=== PATIENT | female | born 1940 | race Caucasian/White ===

== ENCOUNTER 2020-08-08 15:24 | Inpatient (IN) ==
[2020-08-08] MEDS ORDERED: ONDANSETRON INJ 2 MG/ML 2 ML VIAL IV PRN (17:02)
[2020-08-08] MEDS ORDERED: ACETAMINOPHEN 325 MG TAB PO PRN (17:02)
--- NOTE | 2020-08-08 19:25 | XRay Report ---
XR chest 1V portable CLINICAL HISTORY: preop COMPARISON STUDY: Chest radiograph and chest CT March 2020. FINDINGS: There is no pneumothorax or pleural effusion. Note is made of moderate cardiomegaly without evidence for pulmonary edema. There is no consolidation to suggest pneumonia. Severe osteoarthritis of the left glenohumeral joint is incidentally noted. IMPRESSION: No acute cardiopulmonary findings. ACT 112: Negative or not required by law. Electronically signed by: Haris Peña M.D. 08/08/2020 7:23 PM
--- NOTE | 2020-08-08 20:34 | CT Scan Report ---
MAXILLOFACIAL CT WITHOUT CONTRAST CLINICAL HISTORY: Eval for dislocation COMPARISON STUDY: Mandible radiograph July 08, 2020. TECHNIQUE: A maxillofacial CT was performed without IV contrast. Coronal and sagittal reformats were viewed. Automated exposure control was utilized for the study. A dose lowering technique was utiliz ed adhering to the principles of ALARA. FINDINGS: Note is made of anterior dislocation of the right mandibular condyle with respect to the gl enoid fossa. Alignment of the left temporomandibular joint is anatomic. There is no mandibular fractu re. No acute facial fracture is identified. There is no skull base fracture. Orbits are unremarkable on this unenhanced examination. Note is made of mild ethmoid and sphenoid sinus mucosal thickening. N o suspicious osseous lesions are noted. There is no bony destruction. IMPRESSION: Anterior dislocation of the right temporomandibular joint. No fracture. ACT 112: Negative or not required by law. Electronically signed by: Haris Peña M.D. 08/08/2020 8:33 PM
[2020-08-08 20:42] LABS: Basophils # (auto) 0.01 K/uL (0-0.2); Basophils % (auto) 0.2 %; Eosinophils # (auto) 0.04 K/uL (0-0.5); Eosinophils % (auto) 0.6 %; Hematocrit (blood only) 35.1 % (37-47); Hemoglobin 11.4 g/dL (12.0-16.0); Immature Granulocytes # (auto) 0.01 K/uL (0.00-0.02); Immature Granulocytes % (auto) 0.2 %; Lymphocytes # (auto) 0.92 K/uL (1.2-3.4); Lymphocytes % (auto) 14.6 %; Mean Corpuscular Hemoglobin 30.2 pg (25-34); Mean Corpuscular Volume 93.1 fL (80-100); Mean Platelet Volume 10.5 fL (7.4-10.4); Monocytes # (auto) 0.86 K/uL (0.11-0.59); Monocytes % (auto) 13.7 %; Neutrophils # (auto) 4.45 K/uL (1.4-6.5); Neutrophils % (auto) 70.7 %; Platelet Count 267 K/uL (130-400); RDW Coefficient of Variation 13.2 % (11.5-14.5); RDW Standard Deviation 45.4 fL (36.4-46.3); Red Blood Count 3.77 M/uL (4.2-5.4); White Blood Count 6.29 K/uL (4.8-10.8)
[2020-08-08 20:46] LABS: Mean Corpuscular Hgb Conc 32.5 g/dL (32-36)
[2020-08-08 20:59] LABS: Albumin Level 3.8 gm/dl (3.4-5.0); Calcium 10.1 mg/dl (8.5-10.1); Creatinine Clr Calc Pharmacy 21.9 ml/min; Est GFR (African American) 42.3; Est GFR (Non-African American) 36.5; Potassium 3.7 mmol/L (3.5-5.1)
[2020-08-08 21:02] LABS: Bilirubin,Total 0.4 mg/dl (0.2-1); Globulin 3.7 gm/dl (2.5-4.0); Total Protein 7.5 gm/dl (6.4-8.2)
--- NOTE | 2020-08-09 01:23 | History & Physical Report ---
Date of Service August 09, 2020 Assessment & Plan (1) Dislocated mandible: Dislocated Mandible Face CT showing anterior dislocation of right TMJ this has been dislocated for weeks Plan is for facial surgery to reduce the right TMJ under anesthesia in OR NPO Will start LR at 60 mls/hour Will order covid testing DVT PPx: SCD's F/E/N: LR @ 60 mls/hour Dispo: Awaiting reduction in OR for dislocated Right TMJ DNR/DNI Admission and Anticipated Discharge Date Admission Date: August 08, 2020 History of Present Illness Chief Complaint: Jaw Dislocation Primary Care Provider: Paris Vo MD Karolina Scott is a maximo 80 year old woman with a past medical history of hypertension who was brushing her teeth approximately 4 weeks ago when she felt her jaw move out of place and pain in her right cheondoism area. She went to her doctor and was referred to Dr. Gaffney of ENT who who was unable to reduce her jaw in clinic he referred to Dr. Barber oral surgeon who was also unable to relocated jaw. Decision was made to transfer her here for reduction under anesthesia. She is currently in mild discomfort, but denies need for pain medication, she is otherwise well. She has only been able to eat soup since her incident over a month ago because she cannot chew. her speech has been impaired and she has been in discomfort this whole time. Non smoker non drinker no drug use. Does not take any home medications. Lives in an apartment independently in [place], son lives in the area. DNR/DNI Allergies Allergy/AdvReac Type Severity Reaction Status Date / Time Penicillins Allergy Intermediate Swelling Verified 08/08/20 13:31 of Lip/Tongue/Throat Home Medications Home Medications Medication Instructions Recorded Confirmed Type acetaminophen 500 mg tablet 500 mg PO Q6H PRN 02/13/20 08/08/20 History calcium carbonate-vitamin D3 600 1 tab PO BID tab 02/13/20 08/08/20 History mg(1,500 mg)-400 unit chewable tablet loratadine 10 mg tablet 10 mg PO QAM PRN 02/13/20 08/08/20 History multivitamin,or-swml-siwyqwrv 1 tab PO QAM 02/13/20 08/08/20 History omega-3 fatty acids 1,000 mg 1,000 mg PO QAM 02/13/20 08/08/20 History capsule ciprofloxacin HCl 250 mg tablet 250 mg PO BID #20 tab 07/02/20 08/08/20 Rx metronidazole 500 mg tablet 500 mg PO BID #20 tab 07/02/20 08/08/20 Rx Past Med/Surg History Medical History (Updated 08/09/20 @ 11:45 by Carroll Gonzalez MD) Anemia Glaucoma Hiatal hernia History of cataract History of chemotherapy Human papilloma virus (HPV) DNA test negative Hyperlipidemia Hypertension LBBB (left bundle branch block) UTI (urinary tract infection) Vertigo 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 Surgical History H/O colonoscopy (~2018) History of arthroscopy of right knee 15 years ago History of bladder repair surgery History of hernia repair History of hysterectomy S/P iridectomy Family History Mother , age 60's Stroke Father , of old age, age 80 Stroke Son No problems noted. Son , of MVA age 15 No problems noted. Family/Other Hypertension Social History (Updated 08/05/20 @ 14:46 by Christina Haq RN) Smoking Status: Never smoker Hx Alcohol Use: No Hx Substance Use: No Preferred Language: Kuwaiti Communication Ability: Effective Visual Impairment: Limited Hearing Ability: Normal Mail Rider Required: No Beliefs That Will Affect Care: Taoism marital status: / Current Living Situation: Alone current occupational status: retired How many Children do You have: 2 Other Information That Helps Us Care for You: No Feels Safe at Home: Yes Safety Concerns: Feels Safe At This Time Childhood Exposure to Second-Hand Smoke: No caffeine: Yes (2 cups a day) Assistive Devices: Walker Review of Systems Review of Systems: All systems reviewed & are unremarkable except as noted in HPI & below Physical Exam Constitutional: WD/WN, vitals as above Eyes: PERRL, conjunctivae normal, anicteric sclerae ENMT: Patient with clear shift in jaw to the right and anteriorly having difficulty opening mouth to speak to me. Tenderness around TMJ Neck: trachea midline, no thyromegaly Respiratory: normal respiratory effort, lungs clear to auscultation Cardiovascular: RRR, no murmur, no edema Vessels: normal peripheral pulses and dorsalis pedis pulses present; no carotid bruit and no abdominal aortic bruit Extremities: no pedal edema and no edema Gastrointestinal (Abdomen): normal bowel sounds, soft, nontender, no hepatosplenomegaly Musculoskeletal: no cyanosis or clubbing, extremities motor strength 5/5 Results & Data Results & Data ([facility]) Vital Signs (Past 12 Hours) Vital Signs Temp Pulse Resp BP Pulse Ox 08/08/20 23:34 36.7 C 89 16 149/84 H 98 08/08/20 19:13 36.7 C 84 16 161/92 H 98 Code Status & VTE Plan VTE Prophylaxis Plan VTE Prophylaxis will be ordered: Yes Supervising Physician Co-Signing Physician Notes Attending addendum: I have physically seen this patient, have supervised the medical residents activities, and agree with the H&P unless as otherwise noted. Assessment and Plan: Dislocated mandible/right TMJ- Ongoing direct admission for surgery under anesthesia in the OR with Dr. Barber. N.p.o. Famotidine 20 mg IV every 12 hours LR at 60 mils per hour Admission laboratories: CBC with differential, chemistry profile, PT/PTT/INR, EKG and chest x-ray. Ceftriaxone 1 g IV daily to cover concurrent mild sinusitis Remaining orders and notations as noted Resident Activity Tracking Resident Involvement: Resident Care Provided Care Provided: Adult Hospital Medicine
[2020-08-09] MEDS: LACTATED RINGER'S 1,000 ML IV SCH ×2 (03:52→18:24)
--- NOTE | 2020-08-09 08:31 | Hospitalist Progress Note ---
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 * s/p chemo and radiation -- completed * Follows with Dr. Yepez (3) Hypertension: * Previously on Losartan but discontinued due to syncopal episodes * Talks of Holter monitor outpatient * BP 162/77 * Continue to monitor (4) LBBB (left bundle branch block): Old, on ECG from previous. has a h/o cardiac workup as outpt prior to moving here including ECHO. Records requested (5) DVT prophylaxis: * SCDs Dispo: OR later today Admission and Anticipated Discharge Date Admission Date: August 08, 2020 Supervising Physician Co-Signing Physician Notes PA Supervision Note: I did not personally see or examine the patient today, but I verified all oden points of FLORENCIA Crystal's assessment and plan with the following exceptions/additions: None Subjective Patient evaluated this morning. Awaiting OR time. States she had been brushing teeth approximately a month ago due to brushing her teeth after eating peanuts and she felt a pop. Had been seen by her PCP and was given cipro/flagyl for a dental infection initially but had been set up with wrong doc at f/u and ended up needing evaluated by Dr. Barber shortly after waiting 3-4 weeks for ENT appt. She states she is not having much pain currently and does not require anything for that at this time. She states initially eating soups, but hasn't really been able to take much in as her teeth as not aligned. She states she is nervous about OR later this morning but feels that she is in good hands. Denies fever, chills, chest pain, shortness of breath, abdominal pain or dysuria at this time. Awaiting time for OR hopefully later this morning. Review of Systems Review of Systems: All systems reviewed & are unremarkable except as noted in HPI & below Physical Exam Constitutional: + frail appearing, cooperative and comfortable; no acute distress Eyes: PERRL, conjunctivae normal, anicteric sclerae ENMT: Jaw shifted right and anteriorly. difficulty with opening mouth. TMJ on R side tender to palpation poor dentition Neck: trachea midline, no thyromegaly Respiratory: normal respiratory effort, lungs clear to auscultation Cardiovascular: RRR, no murmur, no edema Vessels: normal peripheral pulses and dorsalis pedis pulses present; no carotid bruit and no abdominal aortic bruit Extremities: no pedal edema and no edema Gastrointestinal (Abdomen): normal bowel sounds, soft, nontender, no hepatosplenomegaly Musculoskeletal: no cyanosis or clubbing, extremities motor strength 5/5 Skin: warm, dry Neurologic: normal touch/pain/proprioception and CN's II-XI intact bilaterally Psychiatric: Orientation: alert and oriented x 3 Lymphatic: no cervical or axillary lymphadenopathy Results & Data Results & Data ([facility]) Vital Signs (Past 12 Hours) Vital Signs Temp Pulse Resp BP Pulse Ox 08/09/20 06:40 36.7 C 71 16 162/77 H 96 08/08/20 23:34 36.7 C 89 16 149/84 H 98 Laboratory Results 08/09/20 08/09/20 08/09/20 Range/Units Unknown Unknown 08:17 WBC (4.8-10.8) K/uL RBC (4.2-5.4) M/uL Hgb (12.0-16.0) g/dL Hct (37-47) % MCV (80-100) fL MCH (25-34) pg MCHC (32-36) g/dL RDW Std Deviation (36.4-46.3) fL RDW Coeff of Joe (11.5-14.5) % Plt Count (130-400) K/uL MPV (7.4-10.4) fL Immature Gran % (Auto) % Neut % (Auto) % Lymph % (Auto) % [place] % (Auto) % Eos % (Auto) % Baso % (Auto) % Neut # (Auto) (1.4-6.5) K/uL Lymph # (Auto) (1.2-3.4) K/uL [place] # (Auto) (0.11-0.59) K/uL Eos # (Auto) (0-0.5) K/uL Baso # (Auto) (0-0.2) K/uL Immature Gran # (Auto) (0.00-0.02) K/uL Sodium (136-145) mmol/L Potassium (3.5-5.1) mmol/L Chloride (98-107) mmol/L Carbon Dioxide (21-32) mmol/L Anion Gap (3-11) BUN (7-18) mg/dl Creatinine (0.6-1.2) mg/dl Est Cr Clr Drug Dosing ml/min Est GFR ( Amer) Est GFR (Non-Af Amer) BUN/Creatinine Ratio (10-20) Glucose (70-99) mg/dl Calcium (8.5-10.1) mg/dl Magnesium 1.8 (1.8-2.4) mg/dl Total Bilirubin (0.2-1) mg/dl AST (15-37) U/L ALT (12-78) U/L Alkaline Phosphatase (45-117) U/L Total Protein (6.4-8.2) gm/dl Albumin (3.4-5.0) gm/dl Globulin (2.5-4.0) gm/dl Albumin/Globulin Ratio (0.9-2) COVID-19 Eval [facility] SARS-CoV-2, RNA, NAAT NEGATIVE (NEGATIVE) 08/08/20 08/08/20 Range/Units 20:25 20:25 WBC 6.29 (4.8-10.8) K/uL RBC 3.77 L (4.2-5.4) M/uL Hgb 11.4 L (12.0-16.0) g/dL Hct 35.1 L (37-47) % MCV 93.1 (80-100) fL MCH 30.2 (25-34) pg MCHC 32.5 (32-36) g/dL RDW Std Deviation 45.4 (36.4-46.3) fL RDW Coeff of Joe 13.2 (11.5-14.5) % Plt Count 267 (130-400) K/uL MPV 10.5 H (7.4-10.4) fL Immature Gran % (Auto) 0.2 % Neut % (Auto) 70.7 % Lymph % (Auto) 14.6 % [place] % (Auto) 13.7 % Eos % (Auto) 0.6 % Baso % (Auto) 0.2 % Neut # (Auto) 4.45 (1.4-6.5) K/uL Lymph # (Auto) 0.92 L (1.2-3.4) K/uL [place] # (Auto) 0.86 H (0.11-0.59) K/uL Eos # (Auto) 0.04 (0-0.5) K/uL Baso # (Auto) 0.01 (0-0.2) K/uL Immature Gran # (Auto) 0.01 (0.00-0.02) K/uL Sodium 136 (136-145) mmol/L Potassium 3.7 (3.5-5.1) mmol/L Chloride 102 (98-107) mmol/L Carbon Dioxide 29 (21-32) mmol/L Anion Gap 5.0 (3-11) BUN 18 (7-18) mg/dl Creatinine 1.35 H (0.6-1.2) mg/dl Est Cr Clr Drug Dosing 21.9 ml/min Est GFR ( Amer) 42.3 Est GFR (Non-Af Amer) 36.5 BUN/Creatinine Ratio 13.0 (10-20) Glucose 99 (70-99) mg/dl Calcium 10.1 (8.5-10.1) mg/dl Magnesium (1.8-2.4) mg/dl Total Bilirubin 0.4 (0.2-1) mg/dl AST 14 L (15-37) U/L ALT 12 (12-78) U/L Alkaline Phosphatase 111 (45-117) U/L Total Protein 7.5 (6.4-8.2) gm/dl Albumin 3.8 (3.4-5.0) gm/dl Globulin 3.7 (2.5-4.0) gm/dl Albumin/Globulin Ratio 1.0 (0.9-2) COVID-19 Eval Order SARS-CoV-2, RNA, NAAT (NEGATIVE) Diagnostic Findings Maxillofacial CT w/o Contrast IMPRESSION: Anterior dislocation of the right temporomandibular joint. No fracture. CXR IMPRESSION: No acute cardiopulmonary findings. PG Care Time/CCT Total # of Minutes Spent Total Time Spent with Patient: Total time spent is greater than 50% in coordination of care (as documented) at patient's floor/unit and/or counseling patient: Coding Level of Care Code 87245 Subseq Hosp Care Lvl 2 Diagnoses Dislocated mandible S03.00XA Vulvar carcinoma C51.9 Hypertension I10 LBBB (left bundle branch block) I44.7 DVT prophylaxis Z29.9
[2020-08-09] MEDS ORDERED: MIDAZOLAM HCL 1 MG/ML 2ML VIAL ONE (10:23)
[2020-08-09] MEDS ORDERED: LIDOCAINE HCL 2% 2 ML VIAL/AMP(20MG/ML) INFIL ONE (10:24)
[2020-08-09] MEDS ORDERED: fentaNYL citrate 100 MCG/2 ML VIAL ONE (10:24)
[2020-08-09] MEDS ORDERED: DEXAMETHASONE SOD INJ 4 MG/ML VIAL ONE ×2 (10:25→13:10)
[2020-08-09] MEDS ORDERED: ROCURONIUM BROMIDE 10 MG/ML 5 ML VIAL IV ONE (10:25)
[2020-08-09] MEDS ORDERED: ONDANSETRON INJ 2 MG/ML 2 ML VIAL ONE (10:25)
[2020-08-09] MEDS ORDERED: OXYMETAZOLINE 0.05% 30 ML BTL ONE (10:30)
[2020-08-09] MEDS ORDERED: LIDOCAINE 2% JELLY 5 ML TUBE ONE (10:32)
[2020-08-09] MEDS ORDERED: CHLORHEXIDINE GLUCONATE 0.12% 480 ML ONE (10:44)
[2020-08-09] MEDS ORDERED: BUPIVACAINE/EPINEPHRINE 0.5% 1:200,000 1.8 ML CARP ONE ×2 (10:44→12:32)
[2020-08-09] MEDS ORDERED: SUCCINYLCHOLINE CHLORIDE 20 MG/ML 10 ML VIAL IV ONE (10:54)
[2020-08-09] MEDS ORDERED: fentaNYL citrate 100 MCG/2 ML VIAL IV PRN (11:43)
[2020-08-09] MEDS ORDERED: ePHEDrine sulfate 50 MG/ML AMP IV PRN (11:43)
[2020-08-09] MEDS ORDERED: ONDANSETRON INJ 2 MG/ML 2 ML VIAL IV PRN (11:43)
[2020-08-09] MEDS ORDERED: MEPERIDINE HCL 25 MG/ML CARP/VIAL IV PRN (11:43)
[2020-08-09] MEDS ORDERED: PHENYLEPHRINE 100MCG/ML 5ML SYR IV PRN (11:43)
[2020-08-09] MEDS ORDERED: ATROPINE SULFATE 0.1 MG/ML 10ML SYR IV PRN (11:43)
[2020-08-09] MEDS ORDERED: HYDROmorphone INJ 1 MG/ML SYRINGE IV PRN (11:43)
[2020-08-09] MEDS ORDERED: LABETALOL HCL IV 5 MG/ML 20ML IV PRN (11:43)
--- NOTE | 2020-08-09 11:44 | Anesthesiology Consultation ---
Date of Service August 09, 2020 Covid 19 negative today. Assessment & Plan (1) Encounter for pre-operative examination: Chart Review Chart Review: Acceptable Risk for Surgery and Patient NOT seen in Pre Admission Testing Consults Requested none History Surgery Operation Date: 08/09/20 09:50 Proposed Procedures p Jaw Reduction - Richie Barber, DMD Height/Weight Height: 4 ft 11 in Weight: 51 kg Allergies Allergy/AdvReac Type Severity Reaction Status Date / Time Penicillins Allergy Intermediate Swelling Verified 08/08/20 13:31 of Lip/Tongue/Throat Medications Home Medications Medication Instructions Recorded Confirmed Last Taken acetaminophen 500 mg tablet 500 mg PO Q6H PRN 02/13/20 08/08/20 Unknown calcium carbonate-vitamin D3 600 1 tab PO BID tab 02/13/20 08/08/20 Unknown mg(1,500 mg)-400 unit chewable tablet loratadine 10 mg tablet 10 mg PO QAM PRN 02/13/20 08/08/20 Unknown multivitamin,jd-lyzk-tooicout 1 tab PO QAM 02/13/20 08/08/20 03/07/20 omega-3 fatty acids 1,000 mg 1,000 mg PO QAM 02/13/20 08/08/20 03/07/20 capsule ciprofloxacin HCl 250 mg tablet 250 mg PO BID #20 tab 07/02/20 08/08/20 Unknown metronidazole 500 mg tablet 500 mg PO BID #20 tab 07/02/20 08/08/20 Unknown Active Medications Generic Name Dose Route Start Last Admin Trade Name Freq PRN Reason Stop Dose Admin Lactated Ringer's 1,000 mls @ 60 mls/hr 08/09/20 02:15 08/09/20 03:52 Lr IV 09/08/20 02:14 60 mls/hr .[id number] ETHAN Administration NPO Date Last Intake of Fluids: 08/08/20 Time Last Intake of Fluids: 18:00 Date Last Intake of Solids: 08/08/20 Time Last Intake of Solids: 18:00 Last Intake of Solids Comment: liquid diet Past Medical History Medical History (Updated 08/09/20 @ 11:45 by Carroll Gonzalez MD) Anemia Glaucoma Hiatal hernia History of cataract History of chemotherapy Human papilloma virus (HPV) DNA test negative Hyperlipidemia Hypertension LBBB (left bundle branch block) UTI (urinary tract infection) Vertigo Vulvar carcinoma 01/19/2082-kfgi-ytcd 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 Past Family History Family History Mother , age 60's Stroke Father , of old age, age 80 Stroke Son No problems noted. Son , of MVA age 15 No problems noted. Family/Other Hypertension Past Surgical History Surgical History H/O colonoscopy (~2018) History of arthroscopy of right knee 15 years ago History of bladder repair surgery History of hernia repair History of hysterectomy S/P iridectomy Social History Smoking Status: Never smoker Hx Alcohol Use: No Hx Substance Use: No Physical Exam Vital Signs Last Vital Signs Temp 36.5 C 08/09/20 11:23 Pulse 88 08/09/20 11:23 Resp 18 08/09/20 11:23 BP 170/97 H 08/09/20 11:23 Pulse Ox 97 08/09/20 11:23 Testing Laboratory Results 08/08/20 20:25 08/08/20 20:25 Electrocardiogram Date: 03/08/20 Findings: + NSR @ (83) and + LBBB possible L atrial enlargement Chest X-Ray Date: 08/08/20 XR chest 1V portable CLINICAL HISTORY: preop COMPARISON STUDY: Chest radiograph and chest CT March 2020. FINDINGS: There is no pneumothorax or pleural effusion. Note is made of moderate cardiomegaly without evidence for pulmonary edema. There is no consolidation to suggest pneumonia. Severe osteoarthritis of the left glenohumeral joint is incidentally noted. IMPRESSION: No acute cardiopulmonary findings. ACT 112: Negative or not required by law. Electronically signed by: Haris Peña M.D. 08/08/2020 7:23 PM Dictated: 08/08/201918 Transcribed: 08/08/201918 Other Testing MAXILLOFACIAL CT WITHOUT CONTRAST CLINICAL HISTORY: Eval for dislocation COMPARISON STUDY: Mandible radiograph July 08, 2020. TECHNIQUE: A maxillofacial CT was performed without IV contrast. Coronal and sagittal reformats were viewed. Automated exposure control was utilized for the study. A dose lowering technique was utilized adhering to the principles of ALARA. FINDINGS: Note is made of anterior dislocation of the right mandibular condyle with respect to the glenoid fossa. Alignment of the left temporomandibular joint is anatomic. There is no mandibular fracture. No acute facial fracture is identified. There is no skull base fracture. Orbits are unremarkable on this unenhanced examination. Note is made of mild ethmoid and sphenoid sinus mucosal thickening. No suspicious osseous lesions are noted. There is no bony destruction. IMPRESSION: Anterior dislocation of the right temporomandibular joint. No fracture. ACT 112: Negative or not required by law. Electronically signed by: Haris Peña M.D. 08/08/2020 8:33 PM Dictated: 08/08/202028 Transcribed: 08/08/202028
--- NOTE | 2020-08-09 11:48 | Surgery Consultation ---
Date of Consultation August 09, 2020 Mrs. Scott developed an acute right TMJ dislocation with a major shift to the left with gross crossbite. This occurred around July 02. She was referred to ENT(?) but did not get appointment for over [address] Gaffney was surprised that the patient was NOT referred to oral surgery. He did try to reduce the dislocation but after 3 + weeks not possible. He called me and asked if I could see patient KELSEY. I saw her with her son today. The jaw is grossly dislocated to the left the right condyle is out of the fossa and the jaw is deviated to the left with crossbite. She can not close her teeth together, chew or talk correctly due to the the dislocation. I also tried to reduce the right TMJ but not possible. This is an urgent case that should be reduced KELSEY. My plan is to admit to hospital get medical w/up take to OR reduce the right joint . I will place wires around a few teeth and form lugs to place elastics to keep her in functional elastics for a few weeks to prevent a recurrence of the dislocation. It is unfortunate that this 80 y/o had to go almost 5 weeks with a dislocated jaw effecting her eating of life.and quality of life, sleeping and talking. Patient was admitted and CT scan with 3-D imaging taken. The 3-D shows complete dislocation of right TMJ out of fossa and anterior to the articular eminence. Given this happened in early July there is an intense fibrosis of the muscles of mastication that must be overcome to allow the joint to be reduced. I will need to place wire loops with elastics to prevent a recurrence of the dislocation. I feel it would be best to keep her in house tonight to insure the she does not dislocate given that she was in the dislocated position for over 6 weeks. A general anesthesia with Neuro muscular blocking is needed to reduce the dislocation. History of Present Illness Attending Physician: Rocio Rosales MD Allergies Allergy/AdvReac Type Severity Reaction Status Date / Time Penicillins Allergy Intermediate Swelling Verified 08/08/20 13:31 of Lip/Tongue/Throat Home Medications Home Medications Medication Instructions Recorded Confirmed Type acetaminophen 500 mg tablet 500 mg PO Q6H PRN 02/13/20 08/08/20 History calcium carbonate-vitamin D3 600 1 tab PO BID tab 02/13/20 08/08/20 History mg(1,500 mg)-400 unit chewable tablet loratadine 10 mg tablet 10 mg PO QAM PRN 02/13/20 08/08/20 History multivitamin,uw-jqix-ropbvxsy 1 tab PO QAM 02/13/20 08/08/20 History omega-3 fatty acids 1,000 mg 1,000 mg PO QAM 02/13/20 08/08/20 History capsule ciprofloxacin HCl 250 mg tablet 250 mg PO BID #20 tab 07/02/20 08/08/20 Rx metronidazole 500 mg tablet 500 mg PO BID #20 tab 07/02/20 08/08/20 Rx Patient History Medical History (Updated 08/09/20 @ 11:45 by Carroll Gonzalez MD) Anemia Glaucoma Hiatal hernia History of cataract History of chemotherapy Human papilloma virus (HPV) DNA test negative Hyperlipidemia Hypertension LBBB (left bundle branch block) UTI (urinary tract infection) Vertigo Vulvar carcinoma 01/19/2019-cxfg-wxdt 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 Surgical History (Updated 08/08/20 @ 13:33 by Elsy Rankin RN) H/O colonoscopy (~2018) History of arthroscopy of right knee 15 years ago History of bladder repair surgery History of hernia repair History of hysterectomy S/P iridectomy Family History (Updated 08/05/20 @ 14:45 by Christina Haq, KAN) Mother , age 60's Stroke Father , of old age, age 80 Stroke Son No problems noted. Son , of MVA age 15 No problems noted. Family/Other Hypertension Social History (Updated 08/05/20 @ 14:46 by Christina Haq RN) Smoking Status: Never smoker Hx Alcohol Use: No Hx Substance Use: No Preferred Language: Setswana Communication Ability: Effective Visual Impairment: Limited Hearing Ability: Normal Java Front End Web Developer Required: No Beliefs That Will Affect Care: Uatsdin marital status: / Current Living Situation: Alone current occupational status: retired How many Children do You have: 2 Other Information That Helps Us Care for You: No Feels Safe at Home: Yes Safety Concerns: Feels Safe At This Time Childhood Exposure to Second-Hand Smoke: No caffeine: Yes (2 cups a day) Assistive Devices: Walker Results & Data ([facility]) Vital Signs (Past 12 Hours) Vital Signs Temp Pulse Resp BP Pulse Ox 08/09/20 11:23 36.5 C 88 18 170/97 H 97 08/09/20 06:40 36.7 C 71 16 162/77 H 96 PG Care Time/CCT Total # of Minutes Spent Total Time Spent with Patient: Total time spent is greater than 50% in coordination of care (as documented) at patient's floor/unit and/or counseling patient: Coding Level of Care Code None
--- NOTE | 2020-08-09 11:48 | History & Physical Bridge Note ---
Date of Service August 09, 2020 History & Physical Bridge Note I have examined the patient, reviewed the History & Physical and in the interval since the performance of the History & Physical I have noted the following changes of clinical significance: no changes noted. Reviewed the CT scan and Neg COVID test OK for reduction STAT
[2020-08-09] MEDS ORDERED: hydrALAZINE HCL 20 MG/ML VIAL IV PRN (11:54)
[2020-08-09] MEDS ORDERED: NEOSTIGMINE METHYLSULFATE 5 MG/5 ML SYR ONE (12:49)
[2020-08-09] MEDS ORDERED: GLYCOPYRROLATE 0.2 MG/ML VIAL ONE (12:49)
[2020-08-09] MEDS ORDERED: PHENYLEPHRINE HCL 10 MG/ML VIAL ONE (12:52)
[2020-08-09] MEDS ORDERED: SODIUM CHLORIDE 0.9% INJ 10 ML VIAL ONE (13:10)
[2020-08-09] MEDS ORDERED: LABETALOL HCL IV 5 MG/ML 20ML IV ONE (13:23)
--- NOTE | 2020-08-09 14:08 | Anesthesiology Progress Note ---
Date of Service August 09, 2020 Anesthesia Post Procedure Vital Signs Vital Signs: Temp Pulse Pulse Resp BP Pulse Ox 08/09/20 14:00 69 16 120/93 95 08/09/20 13:50 69 16 149/86 H 99 08/09/20 13:44 36.3 C L 71 14 167/93 H 97 08/09/20 11:23 36.5 C 88 18 170/97 H 97 08/09/20 06:40 36.7 C 71 16 162/77 H 96 08/08/20 23:34 36.7 C 89 16 149/84 H 98 08/08/20 19:13 36.7 C 84 16 161/92 H 98 Transfer of Care Handoff Completed per policy Notes Mental Status: alert / awake / arousable Patient Amnestic to Procedure: Yes Nausea / Vomiting: adequately controlled Pain: adequately controlled Airway Patency, RR, SpO2: stable & adequate BP & HR: stable & adequate Hydration State: stable & adequate Anesthetic Complications: no major complications apparent and Pt Satisfied with anesthetic care Notes: The patient is awake and her vitals are stable.
--- NOTE | 2020-08-09 16:29 | Operative Report ---
Post Operative Report Pre & Post Diagnosis Operation Date: 08/09/20 09:50 Pre-Op Diagnosis: Dislocated Jaw Post-Op Diagnosis: Dislocated Jaw I identified the patient and participated in the time-out.: Yes Procedure Operation Date: 08/09/20 09:50 Actual Procedures p Reduction of TMJ total joint dislocation Closed Jaw Reduction TMJ injection steroids/ local - JODY Bustos Placement of Arch Bars Upper/Lower teeth: Local anesthesia in the form of Marcaine with a vasoconstrictor, approximately 4 carpules of the local anesthesia was injected. Once the deep level of anaesthesia was achieved I was able to over come the muscle contraction and with a downward and posterior rotation movement I was able to reduce the right TMJ. As expected the posterior teeth on the right side were in open bite as a result of the 6 weeks of dislocation and swelling associated with the muscles. As soon as I opened the mouth the right TMJ would dislocate but I was easily able to get it into the fossa. The arch bars were necessary to prevent a recurrence of the dislocation. I will need to work on jaw exercise and ROM therapy in the future The arch bars were placed on the lower and upper teeth with 24 gauge stainless steel wires using a twist wire method from the 1 molar to the cuspids in each quadrant.. It was noted that there was good stability of the occlusion and as a result of the bands the bite started to settle into place. After the arch bars were placed internal dental elastics were placed to maintain the ideal position of the occlusion to allow healing and stabilization of the muscles. I now used Betadine to prep the right TMJ 1 cc of local was placed into the superior joint space.Then 2 cc of dilute Decadron 4mg/cc was placed into the superior joint space and muscles. The plan is for the use of the functional elastics until that time that the chance of dislocation has lessened. Surgeon Richie Barber, DMD Prototype Technician none Estimated Blood Loss 1 Findings Consistent with Post-Op Diagnosis Specimens none Description of Procedure Reduction of mandibular total dislocation right TMJ Placement of interdental wiring other then for fracture TMJ joint njection I attest to the content of the Intraoperative Record and any orders documented therein. Any exceptions are noted below.
--- NOTE | 2020-08-09 16:35 | Electrocardiogram Report ---
Test Reason : Blood Pressure : / mmHG Vent. Rate : 055 BPM Atrial Rate : 055 BPM P-R Int : 184 ms QRS Dur : 126 ms QT Int : 572 ms P-R-T Axes : 048 040 224 degrees QTc Int : 547 ms Sinus bradycardia Left bundle branch block Abnormal ECG When compared with ECG of 08-MAR-2020 13:55, Vent. rate has decreased BY 28 BPM T wave inversion now evident in Inferior leads T wave inversion more evident in Anterolateral leads Confirmed by Christopher Cerna ([id number]) on 08/09/2020 4:34:55 PM Referred By: Richie Barber Confirmed By:Ricardo Cerna
[2020-08-09] MEDS ORDERED: ACETAMINOPHEN 1000 MG/100 ML IV IV PRN (20:35)
[2020-08-09] MEDS ORDERED: HYDROmorphone INJ 0.5 MG/0.5 ML SYR IV PRN (20:37)
[2020-08-09] MEDS: ACETAMINOPHEN 1,000 MG/100 ML VIAL IV PRN (20:52)
--- NOTE | 2020-08-10 03:12 | Billing Data ---
Date of Service August 10, 2020 Coding Level of Care Code 84771 Initial Inpt Care Lvl 2
[2020-08-10] MEDS: ACETAMINOPHEN 1,000 MG/100 ML VIAL IV PRN ×2 (06:43→16:22)
[2020-08-10] MEDS: LACTATED RINGER'S 1,000 ML IV SCH ×2 (06:43→19:34)
[2020-08-10 07:00] LABS: Hematocrit (blood only) 33.2 % (37-47); Hemoglobin 10.7 g/dL (12.0-16.0); Mean Corpuscular Hemoglobin 29.8 pg (25-34); Mean Corpuscular Hgb Conc 32.2 g/dL (32-36); Mean Corpuscular Volume 92.5 fL (80-100); Mean Platelet Volume 10.6 fL (7.4-10.4); Platelet Count 278 K/uL (130-400); RDW Coefficient of Variation 13.3 % (11.5-14.5); RDW Standard Deviation 45.2 fL (36.4-46.3); Red Blood Count 3.59 M/uL (4.2-5.4); White Blood Count 10.75 K/uL (4.8-10.8)
[2020-08-10 07:28] LABS: BUN Creatinine Ratio 11.4 (10-20); Calcium 9.5 mg/dl (8.5-10.1); Creatinine Clr Calc Pharmacy 20.2 ml/min; Est GFR (African American) 34.7; Est GFR (Non-African American) 29.9; Potassium 3.9 mmol/L (3.5-5.1)
[2020-08-10] MEDS ORDERED: oxyCODONE HCL IR 5 MG TAB (IMMEDIATE RELEASE) PO PRN (09:48)
--- NOTE | 2020-08-10 09:49 | Progress Note ---
Date of Service August 10, 2020 POST OP NOTE: The surgery went very well, The Jaw remains in good reduction position Elastics adjusted to lessen tension to allow more movement Reviewed diet, massage, exercise and continued home/oral care Still in pain, hesitant to move jaws or try soft foods --I encouraged this Plan: Keep in house to day as I will evaluate tomorrow for discharge Suggested she get out of bed with assistance =ambulation important Improve oral intake=soft foods The goal is to keep her with elastics and slowly adjust to allow more opening but prevent dislocation. Assessment & Plan Admission and Anticipated Discharge Date Admission Date: August 08, 2020 Results & Data ([facility]) Vital Signs (Past 12 Hours) Vital Signs Temp Pulse Pulse Resp BP BP Pulse Ox 08/10/20 08:25 36.8 C 59 L 20 172/80 H 97 08/10/20 03:56 36.7 C 73 18 149/70 H 96 08/09/20 23:28 36.6 C 57 L 16 176/72 H 93 PG Care Time/CCT Total # of Minutes Spent Total Time Spent with Patient: Total time spent is greater than 50% in coor dination of care (as documented) at patient's floor/unit and/or counseling patient: Coding Level of Care Code 14377 Subseq Hosp Care Lvl 2
--- NOTE | 2020-08-10 10:39 | Hospitalist Progress Note ---
Date of Service August 10, 2020 Assessment & Plan (1) Dislocated mandible: RIGHT Dislocated Mandible -- occurred approx 4-5 weeks ago * Face CT showing anterior dislocation of right TMJ this has been dislocated for weeks * Maxillofacial surgery consulted -- appreciate assistance. Loosened bands this morning for more movement and plans for re-evaluation again in AM for further adjustment but will be cautious to prevent further dislocation POD#1 s/p reduction R TMJ with Dr. Barber on 08/09 * Continue increased IVF @ 80cc/hr * Clear liquid diet advanced to soft/bite size -- encouraged PO intake * SCDs * Tylenol IV for pain control, oxycodone PO if needed * Continue to monitor (2) Acute kidney injury: * Cr bumped to 1.59 -- likely combination of dehydration given lack of PO intake over past month * IVF increased last evening as above * Diet advanced * BMP in AM (3) Hypertension: * Previously on Losartan but discontinued due to syncopal episodes --> per son Unruly, this was discontinued following chemo and reported low Bps at home. 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 * s/p chemo and radiation -- completed * Follows with Dr. Yepez (5) LBBB (left bundle branch block): * Patient with hx LBBB. Noted Sep 2019. * Presented in March with sternal fracture and was transferred to [place]. * Per sonUnruly, patient had been having syncopal episodes related to her chemo and low blood pressures. * Antihypertensive agent had been stopped. * He stated he believed she had a complete cardiac work-up including ECHO which did not note any valvular abnormalities. * EKG had been previously ordered pre-op on night of admission but cancelled by system. Done this afternoon however some artifact as patient with warming blanket and not able to stay completely still. Sinus Edgar with LBBB but does note T wave inversion more evident in inferior and anterolateral leads. * Requested discharge summary from [facility]. (6) DVT prophylaxis: * SCDs * Ambulation encouraged --> activity changed to OOB with assistance Dispo: possible discharge tomorrow Admission and Anticipated Discharge Date Admission Date: August 08, 2020 Supervising Physician Co-Signing Physician Notes PA Supervision Note: I did not personally see or examine the patient today, but I verified all oden points of FLORENCIA Crystal's assessment and plan with the following exceptions/additions: None Subjective Patient evaluated this morning. Able to have a little bit more mobility with opening and closing her mouth. Admits to some pain, primarily to right jaw region, but she states she would prefer to stick to the IV tylenol for the next day but we did discuss if this does not continue to control her pain that we have PO options as well. States she took some clear liquids this morning for breakfast, orange juice and soup. Agreeable to trial some softer bite size diet for lunch after discussion with Dr. Barber. Therapy to work with exercises to help with opening/closing mouth. Bands loosened slightly this morning by Dr. Barber. Agreeable to continue to monitor overnight given elevation in her Cr and continue with hydration with possible discharge tomorrow or wednesday. Denies fever, chills, chest pain, shortness of breath, abdominal pain, nausea, vomiting or dysuria at this time. Questions/concerns addressed. Review of Systems Review of Systems: All systems reviewed & are unremarkable except as noted in HPI & below Physical Exam Constitutional: + frail appearing and cooperative; no acute distress Eyes: PERRL, conjunctivae normal, anicteric sclerae ENMT: s/p R TMJ reduction in good position with mild swelling tenderness to palpation about TMJ improved mobility with opening and closing mouth Neck: trachea midline, no thyromegaly Respiratory: normal respiratory effort, lungs clear to auscultation Cardiovascular: RRR, no murmur, no edema Vessels: normal peripheral pulses and dorsalis pedis pulses present; no carotid bruit and no abdominal aortic bruit Extremities: no pedal edema and no edema Gastrointestinal (Abdomen): normal bowel sounds, soft, nontender, no hepatosplenomegaly Musculoskeletal: no cyanosis or clubbing, extremities motor strength 5/5 Skin: cool, dry Neurologic: normal touch/pain/proprioception and CN's II-XI intact bilaterally Psychiatric: Orientation: alert and oriented x 3 Lymphatic: no cervical or axillary lymphadenopathy Results & Data Results & Data ([facility]) Vital Signs (Past 12 Hours) Vital Signs Temp Pulse Pulse Resp BP BP Pulse Ox 08/10/20 08:25 36.8 C 59 L 20 172/80 H 97 08/10/20 03:56 36.7 C 73 18 149/70 H 96 08/09/20 23:28 36.6 C 57 L 16 176/72 H 93 Laboratory Results 08/10/20 08/10/20 Range/Units 06:44 06:44 WBC 10.75 (4.8-10.8) K/uL RBC 3.59 L (4.2-5.4) M/uL Hgb 10.7 L (12.0-16.0) g/dL Hct 33.2 L (37-47) % MCV 92.5 (80-100) fL MCH 29.8 (25-34) pg MCHC 32.2 (32-36) g/dL RDW Std Deviation 45.2 (36.4-46.3) fL RDW Coeff of Joe 13.3 (11.5-14.5) % Plt Count 278 (130-400) K/uL MPV 10.6 H (7.4-10.4) fL Sodium 139 (136-145) mmol/L Potassium 3.9 (3.5-5.1) mmol/L Chloride 105 (98-107) mmol/L Carbon Dioxide 27 (21-32) mmol/L Anion Gap 7.0 (3-11) BUN 18 (7-18) mg/dl Creatinine 1.59 H (0.6-1.2) mg/dl Est Cr Clr Drug Dosing 20.2 ml/min Est GFR ( Amer) 34.7 Est GFR (Non-Af Amer) 29.9 BUN/Creatinine Ratio 11.4 (10-20) Glucose 113 H (70-99) mg/dl Calcium 9.5 (8.5-10.1) mg/dl PG Care Time/CCT Total # of Minutes Spent Total Time Spent with Patient: Total time spent is greater than 50% in coordination of care (as documented) at patient's floor/unit and/or counseling patient: Coding Level of Care Code 13955 Subseq Hosp Care Lvl 2 Diagnoses Dislocated mandible S03.00XA Acute kidney injury N17.9 Hypertension I10 Vulvar carcinoma C51.9 LBBB (left bundle branch block) I44.7 DVT prophylaxis Z29.9
[2020-08-10 15:19] VITALS: TEMP 97.9
[2020-08-10 23:54] VITALS: PULSE 73
[2020-08-11] MEDS: ACETAMINOPHEN 1,000 MG/100 ML VIAL IV PRN ×2 (00:54→08:54)
[2020-08-11 07:29] LABS: Hematocrit (blood only) 30.9 % (37-47); Mean Corpuscular Hemoglobin 30.3 pg (25-34); Mean Corpuscular Hgb Conc 32.4 g/dL (32-36); Mean Corpuscular Volume 93.6 fL (80-100); Mean Platelet Volume 11.3 fL (7.4-10.4); Platelet Count 239 K/uL (130-400); RDW Coefficient of Variation 13.6 % (11.5-14.5); White Blood Count 7.93 K/uL (4.8-10.8)
[2020-08-11] MEDS: LACTATED RINGER'S 1,000 ML IV SCH (07:31)
[2020-08-11 07:44] VITALS: O2SAT 95
[2020-08-11 08:05] LABS: BUN Creatinine Ratio 11.6 (10-20); Calcium 9.2 mg/dl (8.5-10.1); Creatinine Clr Calc Pharmacy 24.6 ml/min; Est GFR (African American) 43.8; Est GFR (Non-African American) 37.8; Potassium 3.7 mmol/L (3.5-5.1)
--- NOTE | 2020-08-11 09:43 | Progress Note ---
Date of Service Much improved today, less pain Tylenol seems to help. Able to open more but still pain over right TMJ as expected. occlusion is stable. reviewed Home care Plan: Discharge to day Reviewed oral care, diet and follow up with me on . August 11, 2020 Assessment & Plan Admission and Anticipated Discharge Date Admission Date: August 08, 2020 Results & Data ([facility]) Vital Signs (Past 12 Hours) Vital Signs Temp Pulse Resp BP BP Pulse Ox 08/11/20 07:43 36.6 C 73 18 163/76 H 95 08/10/20 23:50 36.6 C 73 17 169/85 H 91 PG Care Time/CCT Total # of Minutes Spent Total Time Spent with Patient: Total time spent is greater than 50% in coordination of care (as documented) at patient's floor/unit and/or counseling patient: Coding Level of Care Code 39451 Subseq Hosp Care Lvl 1
--- NOTE | 2020-08-11 10:29 | Discharge Summary ---
Date of Service August 11, 2020 Admission HPI Per Admitting Provider Karolina Scott is a maximo 80 year old woman with a past medical history of hypertension who was brushing her teeth approximately 4 weeks ago when she felt her jaw move out of place and pain in her right anglican area. She went to her doctor and was referred to Dr. Gaffney of ENT who who was unable to reduce her jaw in clinic he referred to Dr. Barber oral surgeon who was also unable to relocated jaw. Decision was made to transfer her here for reduction under anesthesia. She is currently in mild discomfort, but denies need for pain medication, she is otherwise well. She has only been able to eat soup since her incident over a month ago because she cannot chew. her speech has been impaired and she has been in discomfort this whole time. Non smoker non drinker no drug use. Does not take any home medications. Lives in an apartment independently in [place], son lives in the area. DNR/DNI Admission Exam Per Admitting Provider Constitutional: WD/WN, vitals as above Eyes: PERRL, conjunctivae normal, anicteric sclerae ENMT: Patient with clear shift in jaw to the right and anteriorly having difficulty opening mouth to speak to me. Tenderness around TMJ Neck: trachea midline, no thyromegaly Respiratory: normal respiratory effort, lungs clear to auscultation Cardiovascular: RRR, no murmur, no edema Vessels: normal peripheral pulses and dorsalis pedis pulses present; no carotid bruit and no abdominal aortic bruit Extremities: no pedal edema and no edema Gastrointestinal (Abdomen): normal bowel sounds, soft, nontender, no hepatosplenomegaly Musculoskeletal: Principal Diagnosis Dislocated Mandible -- R TMJ Reduction Discharge Exam Constitutional + frail appearing and cooperative; no acute distress Eyes PERRL, conjunctivae normal, anicteric sclerae ENMT elastic bands in place, jaw in alignment increased mobility of jaw R TMJ and face with edema, tender to palpation Neck trachea midline, no thyromegaly Respiratory normal respiratory effort, lungs clear to auscultation Cardiovascular RRR, no murmur, no edema Vessels: normal peripheral pulses and dorsalis pedis pulses present; no carotid bruit and no abdominal aortic bruit Extremities: no pedal edema and no edema Gastrointestinal (Abdomen) normal bowel sounds, soft, nontender, no hepatosplenomegaly Musculoskeletal no cyanosis or clubbing, extremities motor strength 5/5 Neurologic normal touch/pain/proprioception and CN's II-XI intact bilaterally Psychiatric Orientation: alert and oriented x 3 Lymphatic no cervical or axillary lymphadenopathy Discharge Data Allergies Allergy/AdvReac Type Severity Reaction Status Date / Time Penicillins Allergy Intermediate Swelling Verified 08/15/20 13:32 of Lip/Tongue/Throat Consultations 08/08/20 17:02 Consult Oromaxillofacial Surgery Routine 08/08/20 17:03 Consult Case Management - Discharge Planning Routine 08/09/20 16:05 Consult Health Information Management Routine Procedures Performed Operation Date: 08/09/20 09:50 Actual Procedures p Closed Jaw Reduction - Richie Barber, DMD Ordered Studies 08/08/20 17:02 CT facial bones wo con Stat Hospital Course (1) Dislocated mandible: RIGHT Dislocated Mandible -- occurred approx 4-5 weeks ago and had been sent to ENT who ordered Xray and sent to maxillofacial surgeon who sent to [facility] for reduction in OR * Face CT showing anterior dislocation of right TMJ this has been dislocated for weeks * Maxillofacial surgery consulted. s/p reduction R TMJ with Dr. Barber on 08/09 with bands placed to prevent repeat dislocation given length of time patient waited prior to reduction * Supportive care with IVF, pain control was provided * Patient utilized only IV tylenol during admission. * Scheduled for follow up with Dr. Barber this upcoming for continued loosening of her elastic to allow for increased mobility but also prevent dislocation. * Tolerated soft diet * Educated on oral hygiene (2) Acute kidney injury: * Cr bumped to 1.59 (recent values in the 1.3 range) -- likely combination of dehydration given lack of PO intake over past month. Cr improved to what appears to be baseline, but suspect some elevation secondary to poor PO intake * Encouraged PO intake now that above is addressed. * IVF as above * Cr improved to 1.3 prior to discharge (3) Hypertension: * Previously on Losartan but discontinued due to syncopal episodes --> per son Unruly, this was discontinued following chemo and reported low Bps at home. 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 * s/p chemo and radiation -- completed * Follows with Dr. Yepez (5) LBBB (left bundle branch block): * Patient with hx LBBB. Noted Sep 2019. * Presented in March with sternal fracture and was transferred to [place]. * Per sonUnruly, patient had been having syncopal episodes related to her chemo and low blood pressures. * Antihypertensive agent had been stopped. * He stated he believed she had a complete cardiac work-up including ECHO which did not note any valvular abnormalities. * EKG had been previously ordered pre-op on night of admission but cancelled by system. Done this afternoon however some artifact as patient with warming blanket and not able to stay completely still. Sinus Edgar with LBBB but does note T wave inversion more evident in inferior and anterolateral leads. * Requested discharge summary from [facility], not received prior to discharge but recommended that patient follow up with PCP if any abnormalities noted (6) DVT prophylaxis: * SCDs * Ambulation encouraged Discharged home with sonUnruly, with follow up with Dr. Barber on Total Time Total Time Spent Total Time Spent (In Minutes): 60 Discharge Plan Discharge Items Patient Disposition: Home - Self-Care Reason For Visit: DISLOCATED R JAW Discharge Diagnosis: S/P reduction or TMJ dislocation Condition on Discharge: Good Activity: Resume your previous activity Lifting: Gradually increase as tolerated Bathing: No limitations Driving/Machine Use: Resume 1 day after discharge Non-emergency contact: Surgeon Call non-emergency contact if: you have any medication questions, your symptoms worsen, your pain is not controlled, your temperature is above 101.5 and your wound has increased redness Follow-up/Referrals: Paris Vo MD [Primary Care Provider] - Richie Barber DMD [Physician] - Diet: Full liquid and Other - See Diet Comment Diet Comment: you can eat any soft foods that you can get into your mouth Addtl Attending Provider Instructions: ADDITIONAL ACTIVITY RECOMMENDATIONS: * [place] teeth after every meal. It is very important to keep your mouth clean to prevent infection. SPECIAL CARE INSTRUCTIONS: * At least 3-4 x a day apply heat (hot water bottle or heating pad) for the as often as possible.This will help with the muscle pain. * start rinsing your mouth with the Peridex in the AM and before bed * Some swelling is common. It should gradually decrease within 4-[address] Barber at [phone] if any questions * You may experience some discomfort for a few days. If pain or swelling increases, Call Dr Barber * you can buy liquid Tylenol in the drug store and use as directed You should follow up as scheduled with Dr. Barber later this week. Please call his office sooner for any signs of dislocation, increased pain. Please follow up with your primary care provider in the next week to monitor your progress. Please return to the emergency department for any symptoms that are concerning for you. It has been a pleasure being a part of the medical team providing for you during this hospitalization. Take care! Pending Studies at Discharge: No Stand-Alone Forms: My [facility] Medications and DC Order Prescriptions: Continued Calcium 600 with Vitamin D3 600 mg(1,500mg) -400 unit tablet,chewable 1 tab PO BID RF: 0 Complete Multivitamin Tablet 1 tab PO QAM RF: 0 omega-3 fatty acids 1,000 mg capsule 1,000 mg PO QAM RF: 0 loratadine [Claritin] 10 mg tablet 10 mg PO QAM PRN (Reason: seasonal allergies) RF: 0 acetaminophen [Tylenol Extra Strength] 500 mg tablet 500 mg PO Q6H PRN (Reason: Pain) RF: 0 ciprofloxacin HCl [Cipro] 250 mg tablet 250 mg PO BID Qty: 20 RF: 0 metronidazole 500 mg tablet 500 mg PO BID Qty: 20 RF: 0 Discharge Orders: Discharge Order (Routine); Ordered 08/11/20 Ordered By: Richie Barber Admission Data Admit Date/Time: 08/08/20 18:49 Attending Provider: Rocio Rosales Admit Provider: Arnie Marroquin Primary Care Provider: Paris Vo Other Providers: Richie Barber Other Interventions: Discharge Summary Assessment (RN) Last Done: 08/11/20 11:03 Supervising Physician Co-Signing Physician Notes PA Supervision Note: I personally saw and examined the patient. I verified all oden points and agree with FLORENCIA Crystal with the following exceptions and/or additions: Pt doing very well, denies any pain in jaw. Is ambulating independently around the room when I saw her. Denies CP or SOB. VSS NAD, AAO x 3 HEENT-jaw in alignment, no swelling or TTP over TMJ on right RRR no mgr CTAB no wcr Abd +BS soft NT ND Ext no edema or calf tenderness 80 yo female here for right TMJ dislocation, now reduced under anesthesia, doing well. Stable ofr dc to home Coding Level of Care Code D/C Day Management >30 mins Diagnoses Dislocated mandible S03.00XA Acute kidney injury N17.9 Hypertension I10 Vulvar carcinoma C51.9 LBBB (left bundle branch block) I44.7 DVT prophylaxis Z29.9
[2020-08-11 11:06] VITALS: BP 169/85
== END 2020-08-11 12:49 | disposition home or self-care (01) | DRG 158 ==
LOC: SUATTDRO 18:49 → 3N 18:49

== ENCOUNTER 2024-01-04 21:59 | Inpatient (IN) ==
--- NOTE | 2024-01-04 22:49 | Emergency Department Note ---
Impression & Plan Severe sepsis, Rhabdomyolysis, Elevated troponin, Acute UTI (urinary tract infection) ED Provider Note Name: MICHELE ANTUNEZ Age: 83 Sex: Female Arrives Via: Ambulance Informant: Patient, patient's son (notes history of last 24 hours as patient is a bit confused) ED Provider: Lewis Albarran MD Chief Complaint: Weakness Impression: As per impressions above Medical Decision Making: Pleasant 83-year-old female arrives for evaluation of generalized weakness. She has a history of hypertension, anemia, mild cognitive impairment, left bundle branch block, CKD and osteoarthritis. Patient was found by her son very weak and on the ground this morning. She has been weak throughout the day and possibly few days prior. On examination patient is dehydrated appearing in no significant distress. She has pressure ulcers of bilateral tops of her feet. There is no evidence of compartment syndrome. She has good pulses in both feet. On arrival patient is tachycardic and having shakes/rigors. Septic workup initiated. She was initially given 500 mL IV fluids however on return of elevated white blood cell count 1 L was given and she tolerated this well thus of another 500 mL. Thus in total patient received 2 L normal saline bolus for resuscitation. With elevated heart rate and tachycardia noted to be likelihood of septic which I suspect is coming from her urine. She was empirically given Invanz. She is anaphylactic to penicillins and thus Zosyn/cefepime were avoided. She has a history of a prolonged QTc and with her age we avoided Levaquin. Hospitalist was involved early. Fortunately patient's blood pressures remained stable throughout and her lactic acid is not significantly elevated though given her worsening mental status or severe weakness and elevated white count I do think that she is showing evidence of severe sepsis she does not have septic shock. Patient has significantly elevated CK consistent with rhabdomyolysis. She also has an elevated troponin. I do not suspect this is ACS given she denies any chest pain or shortness of breath. It is much more likely due to dehydration and CK elevation. That said will need to be further trended out. Given fall CT head was obtained which is fortunately negative. Repeat volume status and repeat sepsis exam at 1 AM on 01/05/2024. Patient is awake she is alert and vitals are stable, she has good cap refill. Heart rates in the 90s she is breathing comfortably sats 94% blood pressure is 120/80. Denies any significant pain in her feet. Notes right hip pain seems to be easing up. Triage/Nursing Notes reviewed by Me Differential:Infection, dehydration, metabolic abnormality, hypo/hyperglycemia, electrolyte disturbance, anemia, hypoxia, cardiac sources, intracerebral event, toxicologic, neurologic, as well as other pathologies. Vital Signs: reviewed and remarkable for tachycardia Interventions: 2 L normal saline bolus IV, Invanz IV Labs:ED labs Reviewed by me and remarkable for elevated white blood cell count, elevated CK, elevated troponin, UA concerning for UTI Imaging:CT of the head without contrast as per my informal interpretation reveals no intracranial hemorrhage or mass effect. Confirmed by radiologist. 1 view chest x-ray as per my interpretation bilateral scarring no lobar infiltrate or significant effusion appreciated. No significantly enlarged cardiac border. Of note she has significant rotation of chest x-ray making read somewhat difficult. 3 view pelvis/right hip x-ray. As per my interpretation. Osteoarthritis no evidence of fracture or dislocation appreciated. EKG:As per my interpretation. Indication weakness. Sinus tachycardia 112 bpm and a QTc of 505. Patient has a left bundle branch block. No ectopy appreciated. Poor baseline noted in several leads. When compared to EKG of August rate has increased but morphology is similar. Cardiac/Tele Monitoring: Cardiac Monitoring: An Order was placed for continuous cardiac monitoring. The monitor shows a rate of 90 with a normal sinus rhythm. Consults:Dr Simone WALKER Hospitalist Plan: Disposition:Hospitalization. Condition: Fair History of Present Illness: 83-year-old female arrives for evaluation of generalized weakness. Patient has been doing well up until about 2 days ago when she seemed to becoming increasingly weak and fatigued. Associated with mild shortness of breath and difficulty ambulating with her walker. This morning when son went to evaluate her at her apartment he noticed she was stuck between the chair and the couch. She did not essentially sitting on her feet and knees for several hours if not the entire night. Patient vaguely remembers this. He was able to get her up and over to the couch. Throughout the day though she has been so weak she is unable to ambulate. Initially thought that maybe getting her legs working little bit better and better blood flow she improved but she really has not improved in fact possibly worsen. She is having some confusion but no specific slurred speech, facial weakness, focal neurologic deficit. Patient denies any headache but she does note that she is having some right hip pain. Mild low back pain as well. She denies any significant pain in her feet. No blood thinner use. She does use Tylenol which she had a dose of about 12 hours ago with some improvement. Past Medical History: osteoarthritis, mild cognitive impairment, hypertension, anemia, left bundle branch block, CKD Home Medications:losartan Allergies:PNC - anaphylaxis Vitals:Blood Pressure: 150/82, Pulse 106, RR 17, T 37.4C, O2 98% on RA Physical Exam: GENERAL: Patient is unwell/elderly appearing and in mild distress. Slight jaundice with dehydration and rigors/shaking RESPIRATORY: No dyspnea. Clear to auscultation and equal bilaterally. CARDIOVASCULAR: tachy.No murmur appreciated. GASTROINTESTINAL: Abdomen soft, non-tender, no peritonitis. EXTREMITIES: Normal motion all extremities, no cyanosis, no edema. TTP over right anterior and lateral hip no pain on rom NEUROLOGIC: Alert and oriented with some confusion surround recent events. Tremulous and weak diffusely. Right eye opaque cornea No focal neurologic deficits appreciated SKIN: No rash, no diaphoresis. breakdown bilateral tops of feet no ttp PSYCH: Appropriate GCS: 15 ED Course: Times/Reassessments: Multiple repeat evaluations through patient's stay. She responded well to fluids and Tylenol. She does appear to be feeling much better. Breathing comfortably. Hospitalist in to evaluate further. She and son are comfortable with plan for stenting. Critical Care: I have personally spent 40 minutes of critical care time in the direct management of this patient. Severe sepsis with acute rhabdomyolysis requiring resuscitation. This was a life/limb threatening event. This 40 minutes is in excess of all separately billable procedures. Lewis Albarran MD Past Med/Surg History Medical History Acute kidney injury Anemia CKD (chronic kidney disease) stage 3, GFR 30-59 ml/min Dislocated mandible DVT prophylaxis Encounter for pre-operative examination Glaucoma Hiatal hernia History of chemotherapy Hyperlipidemia Hypertension LBBB (left bundle branch block) Osteoarthritis of right knee Osteoporosis Recurrent dislocation of left temporomandibular joint Vulvar carcinoma (01/19/20) Surgical History History of mandibular surgery Hx of bilateral cataract extraction H/O colonoscopy (~2017) S/P iridectomy History of hysterectomy History of hernia repair History of arthroscopy of right knee History of bladder repair surgery Family History Mother Stroke Father Stroke Son No problems noted. Son No problems noted. Family/Other Hypertension Denies family history of Ovarian cancer Prostate cancer Myocardial infarction Breast cancer Colorectal cancer Social History (Updated 09/30/23 @ 16:00 by FAUZIA Mills) Smoking Status: Former smoker Second Hand Exposure: No (parents smoked several yrs ago); Do You Dip or Chew Tobacco: No; Hx Alcohol Use: Yes Alcohol type: wine Hx Substance Use: No Preferred Language: Japanese Communication Ability: Effective Visual Impairment: Limited Hearing Ability: Normal Forest Ecologist Required: No Beliefs That Will Affect Care: None marital status: / Current Living Situation: Alone current occupational status: retired How many Children do You have: 2 Feels Safe at Home: Yes Safety Concerns: Feels Safe At This Time Childhood Exposure to Second-Hand Smoke: No Diet: regular caffeine: Yes (2 cups a day) Dental Care, Regularly: Yes Physical Activity Frequency: Daily Physical Activity Frequency Comment: walks in apartment hallway Seatbelt Use: always Sunscreen Use: No Assistive Devices: Walker Allergies Allergies Allergy/AdvReac Type Severity Reaction Status Date / Time Penicillins Allergy Intermediate Swelling Verified 10/27/23 14:23 of Lip/Tongue/Throat Home Meds Home Medications Medication Instructions Recorded Confirmed cholecalciferol (vitamin D3) 50 2,000 unit PO DAILY 01/04/24 01/04/24 mcg (2,000 unit) capsule (Vitamin D3) losartan 25 mg tablet 25 mg PO DAILY 01/04/24 01/04/24 vit C 250 mg-vit E 90 mg-zinc 40 1 tab PO DAILY 01/04/24 01/04/24 mg-copper 1 [id number] capsule (PreserVision AREDS-2) Results & Data (ED) Vital Signs Vital Signs - 24 hr 01/04/24 21:56 01/04/24 21:56 01/04/24 22:18 Temperature 37.4 C Temperature Source Oral Pulse Rate 110 H Pulse Rate [Apical] 106 H Pulse Rate from SpO2 Sensor Pulse Rhythm Pulse Rhythm [Apical] Regular Pulse Strength Pulse Strength [Apical] Normal Respiratory Rate 17 Respiratory Effort / Characteristics Non-Labored Spontaneous Respiratory Depth Normal Respiratory Pattern Regular Blood Pressure Blood Pressure [Left Arm] 150/82 H Blood Pressure Mean Blood Pressure Mean [Left Arm] 104 Blood Pressure Position Blood Pressure Position [Left Arm] Lying Pulse Oximetry 98 98 Oxygen Delivery Method Room Air Room Air Oxygen Flow Rate Sepsis Recent Fever Within 48 Hours Sepsis New/Unexplained Change in Mental Status Sepsis Action Taken by Nursing 01/04/24 22:19 01/04/24 22:20 01/04/24 22:24 Temperature 37.4 C Temperature Source Oral Pulse Rate 111 H 108 H 110 H Pulse Rate [Apical] Pulse Rate from SpO2 Sensor 107 H 113 H Pulse Rhythm Regular Pulse Rhythm [Apical] Pulse Strength Normal Pulse Strength [Apical] Respiratory Rate 20 22 17 Respiratory Effort / Characteristics Non-Labored Spontaneous Respiratory Depth Normal Respiratory Pattern Regular Blood Pressure 150/82 H Blood Pressure [Left Arm] Blood Pressure Mean 104 Blood Pressure Mean [Left Arm] Blood Pressure Position Lying Blood Pressure Position [Left Arm] Pulse Oximetry 97 100 98 Oxygen Delivery Method Nasal Cannula Nasal Cannula Room Air Oxygen Flow Rate 2 2 Sepsis Recent Fever Within 48 Hours No Sepsis New/Unexplained Change in Mental Status No Sepsis Action Taken by Nursing No Action Required 01/04/24 22:30 01/04/24 22:30 01/04/24 22:31 Temperature Temperature Source Pulse Rate 108 H 106 H Pulse Rate [Apical] Pulse Rate from SpO2 Sensor 107 H Pulse Rhythm Regular Pulse Rhythm [Apical] Pulse Strength Pulse Strength [Apical] Respiratory Rate 22 17 Respiratory Effort / Characteristics Respiratory Depth Respiratory Pattern Blood Pressure 144/94 H Blood Pressure [Left Arm] Blood Pressure Mean 124 Blood Pressure Mean [Left Arm] Blood Pressure Position Blood Pressure Position [Left Arm] Pulse Oximetry 97 98 Oxygen Delivery Method Nasal Cannula Room Air Oxygen Flow Rate 2 Sepsis Recent Fever Within 48 Hours Sepsis New/Unexplained Change in Mental Status Sepsis Action Taken by Nursing 01/04/24 22:40 01/04/24 22:50 01/04/24 23:00 Temperature Temperature Source Pulse Rate 111 H 105 H 99 H Pulse Rate [Apical] Pulse Rate from SpO2 Sensor 112 H 107 H 98 H Pulse Rhythm Pulse Rhythm [Apical] Pulse Strength Pulse Strength [Apical] Respiratory Rate 20 19 17 Respiratory Effort / Characteristics Respiratory Depth Respiratory Pattern Blood Pressure Blood Pressure [Left Arm] Blood Pressure Mean Blood Pressure Mean [Left Arm] Blood Pressure Position Blood Pressure Position [Left Arm] Pulse Oximetry 97 94 95 Oxygen Delivery Method Nasal Cannula Nasal Cannula Nasal Cannula Oxygen Flow Rate 2 2 2 Sepsis Recent Fever Within 48 Hours Sepsis New/Unexplained Change in Mental Status Sepsis Action Taken by Nursing 01/04/24 23:00 01/04/24 23:10 01/04/24 23:20 Temperature Temperature Source Pulse Rate 106 H 107 H Pulse Rate [Apical] Pulse Rate from SpO2 Sensor 107 H Pulse Rhythm Pulse Rhythm [Apical] Pulse Strength Pulse Strength [Apical] Respiratory Rate 19 20 Respiratory Effort / Characteristics Respiratory Depth Respiratory Pattern Blood Pressure 129/78 Blood Pressure [Left Arm] Blood Pressure Mean 89 Blood Pressure Mean [Left Arm] Blood Pressure Position Blood Pressure Position [Left Arm] Pulse Oximetry 96 Oxygen Delivery Method Nasal Cannula Oxygen Flow Rate 2 Sepsis Recent Fever Within 48 Hours Sepsis New/Unexplained Change in Mental Status Sepsis Action Taken by Nursing 01/04/24 23:28 01/04/24 23:39 01/04/24 23:40 Temperature Temperature Source Pulse Rate 103 H Pulse Rate [Apical] Pulse Rate from SpO2 Sensor 103 H 99 H Pulse Rhythm Pulse Rhythm [Apical] Pulse Strength Pulse Strength [Apical] Respiratory Rate 24 Respiratory Effort / Characteristics Respiratory Depth Respiratory Pattern Blood Pressure 142/75 H Blood Pressure [Left Arm] Blood Pressure Mean 120 Blood Pressure Mean [Left Arm] Blood Pressure Position Blood Pressure Position [Left Arm] Pulse Oximetry 95 94 Oxygen Delivery Method Nasal Cannula Nasal Cannula Oxygen Flow Rate 2 2 Sepsis Recent Fever Within 48 Hours Sepsis New/Unexplained Change in Mental Status Sepsis Action Taken by Nursing 01/04/24 23:50 01/05/24 00:00 01/05/24 00:00 Temperature Temperature Source Pulse Rate 96 H 94 H Pulse Rate [Apical] Pulse Rate from SpO2 Sensor 97 H 94 H Pulse Rhythm Pulse Rhythm [Apical] Pulse Strength Pulse Strength [Apical] Respiratory Rate 19 20 Respiratory Effort / Characteristics Respiratory Depth Respiratory Pattern Blood Pressure 143/79 H Blood Pressure [Left Arm] Blood Pressure Mean 91 Blood Pressure Mean [Left Arm] Blood Pressure Position Blood Pressure Position [Left Arm] Pulse Oximetry 95 94 Oxygen Delivery Method Nasal Cannula Nasal Cannula Oxygen Flow Rate 2 2 Sepsis Recent Fever Within 48 Hours Sepsis New/Unexplained Change in Mental Status Sepsis Action Taken by Nursing 01/05/24 00:10 Temperature Temperature Source Pulse Rate 98 H Pulse Rate [Apical] Pulse Rate from SpO2 Sensor Pulse Rhythm Pulse Rhythm [Apical] Pulse Strength Pulse Strength [Apical] Respiratory Rate 22 Respiratory Effort / Characteristics Respiratory Depth Respiratory Pattern Blood Pressure Blood Pressure [Left Arm] Blood Pressure Mean Blood Pressure Mean [Left Arm] Blood Pressure Position Blood Pressure Position [Left Arm] Pulse Oximetry Oxygen Delivery Method Oxygen Flow Rate Sepsis Recent Fever Within 48 Hours Sepsis New/Unexplained Change in Mental Status Sepsis Action Taken by Nursing Laboratory Data 01/04/24 22:10 01/04/24 22:10 Lab Results 01/04/24 01/04/24 01/04/24 Range/Units 22:10 22:39 23:10 WBC 17.14 H (4.8-10.8) K/ul RBC 4.91 (4.20-5.40) M/uL Hgb 13.5 (12.0-16.0) g/dl Hct 41.8 (37.0-47.0) % MCV 85.1 (80.0-100.0) fL MCH 27.5 (25.0-34.0) pg MCHC 32.3 (32.0-36.0) g/dL RDW Std Deviation 47.9 H (36.4-46.3) fL RDW Coeff of Joe 15.6 H (11.5-14.5) % Plt Count 375 (130-400) K/uL MPV 12.0 (9.4-12.4) fL Immature Gran % (Auto) 0.6 % Neut % (Auto) 85.4 % Lymph % (Auto) 5.3 % Kinney % (Auto) 8.4 % Eos % (Auto) 0.1 % Baso % (Auto) 0.2 % Neut # (Auto) 14.64 H (1.40-6.50) K/uL Lymph # (Auto) 0.91 L (1.20-3.40) K/uL Kinney # (Auto) 1.44 H (0.11-0.59) K/uL Eos # (Auto) 0.01 (0.00-0.50) K/uL Baso # (Auto) 0.04 (0.00-0.20) K/uL Immature Gran # (Auto) 0.10 (0.01-0.20) K/uL PT 11.4 (9.0-12.0) Seconds INR 1.0 (0.9-1.1) Sodium 136 (136-145) mmol/L Potassium 3.6 (3.5-5.1) mmol/L Chloride 101 (98-107) mmol/L Carbon Dioxide 25 (21-32) mmol/L Anion Gap 10 (3-11) BUN 23 (6-23) mg/dl Creatinine 1.04 (0.6-1.2) mg/dl Est Cr Clr Drug Dosing 32.7 ml/min Est GFR ( Amer) 56.7 ml/min Est GFR (Non-Af Amer) 49.0 ml/min BUN/Creatinine Ratio 22.1 H (10-20) Glucose 113 H (70-99(Fasting)) mg/dl Lactate 1.3 (0.4-2.0) mmol/L Calcium 10.5 H (8.6-10.3) mg/dl Magnesium 1.6 L (1.7-2.4) mg/dl Total Bilirubin 0.9 (0.2-1.0) mg/dl AST 75 H (13-39) U/L ALT 25 (7-52) U/L Alkaline Phosphatase 118 H (34-104) U/L Total Creatine Kinase 3708 H (26-192) U/L Troponin I High Sens 251.2 H* (0-14) pg/ml Total Protein 8.2 (6.0-8.3) gm/dl Albumin 4.7 (3.4-5.0) gm/dl Globulin 3.5 (2.5-4.0) gm/dl Albumin/Globulin Ratio 1.3 (0.9-2) Procalcitonin 0.08 (0-0.5) ng/ml TSH 2.565 (0.300-4.500) uIu/ml Urine Color Urine Appearance (Clear) Urine pH (4.5-7.5) Ur Specific [place] (1.000-1.030) Urine Protein (Negative) Urine Glucose (UA) (Negative) Urine Ketones (Negative) Urine Blood (Negative) Urine Nitrite (Negative) Urine Bilirubin (Negative) Urine Urobilinogen (Negative) Ur Leukocyte Esterase (Negative) Urine WBC (Auto) (0-5) /hpf Urine RBC (Auto) (0-4) /hpf U Hyaline Cast (Auto) (0-5) /lpf U Epithel Cells (Auto) (0-5) /lpf Urine Bacteria (Auto) (Negative) Adenovirus (PCR) Not Detected (NotDetected) B. pertussis DNA (PCR) Not Detected (NotDetected) B.parapertussis DNA PCR Not Detected (NotDetected) C. pneumoniae DNA (PCR) Not Detected (NotDetected) Coronavirus OC43 (PCR) Not Detected (NotDetected) Coronavirus HKU1 (PCR) Not Detected (NotDetected) Coronavirus 229E (PCR) Not Detected (NotDetected) SARS-CoV-2 (PCR) Not Detected (NotDetected) Coronavirus NL63 (PCR) Not Detected (NotDetected) Human Metapneumovir PCR Not Detected (NotDetected) Influenza Type A (PCR) Not Detected (NotDetected) Influenza Type B (PCR) Not Detected (NotDetected) M. pneumoniae (PCR) Not Detected (NotDetected) Parainfluenza 1 (PCR) Not Detected (NotDetected) Parainfluenza 2 (PCR) Not Detected (NotDetected) Parainfluenza 3 (PCR) Not Detected (NotDetected) Parainfluenza 4 (PCR) Not Detected (NotDetected) RSV (PCR) Not Detected (NotDetected) Entero/Rhino (PCR) Not Detected (NotDetected) 01/04/24 Range/Units 23:24 WBC (4.8-10.8) K/ul RBC (4.20-5.40) M/uL Hgb (12.0-16.0) g/dl Hct (37.0-47.0) % MCV (80.0-100.0) fL MCH (25.0-34.0) pg MCHC (32.0-36.0) g/dL RDW Std Deviation (36.4-46.3) fL RDW Coeff of Joe (11.5-14.5) % Plt Count (130-400) K/uL MPV (9.4-12.4) fL Immature Gran % (Auto) % Neut % (Auto) % Lymph % (Auto) % Kinney % (Auto) % Eos % (Auto) % Baso % (Auto) % Neut # (Auto) (1.40-6.50) K/uL Lymph # (Auto) (1.20-3.40) K/uL Kinney # (Auto) (0.11-0.59) K/uL Eos # (Auto) (0.00-0.50) K/uL Baso # (Auto) (0.00-0.20) K/uL Immature Gran # (Auto) (0.01-0.20) K/uL PT (9.0-12.0) Seconds INR (0.9-1.1) Sodium (136-145) mmol/L Potassium (3.5-5.1) mmol/L Chloride (98-107) mmol/L Carbon Dioxide (21-32) mmol/L Anion Gap (3-11) BUN (6-23) mg/dl Creatinine (0.6-1.2) mg/dl Est Cr Clr Drug Dosing ml/min Est GFR ( Amer) ml/min Est GFR (Non-Af Amer) ml/min BUN/Creatinine Ratio (10-20) Glucose (70-99(Fasting)) mg/dl Lactate (0.4-2.0) mmol/L Calcium (8.6-10.3) mg/dl Magnesium (1.7-2.4) mg/dl Total Bilirubin (0.2-1.0) mg/dl AST (13-39) U/L ALT (7-52) U/L Alkaline Phosphatase (34-104) U/L Total Creatine Kinase (26-192) U/L Troponin I High Sens (0-14) pg/ml Total Protein (6.0-8.3) gm/dl Albumin (3.4-5.0) gm/dl Globulin (2.5-4.0) gm/dl Albumin/Globulin Ratio (0.9-2) Procalcitonin (0-0.5) ng/ml TSH (0.300-4.500) uIu/ml Urine Color Yellow Urine Appearance Clear (Clear) Urine pH 5.5 (4.5-7.5) Ur Specific [place] 1.014 (1.000-1.030) Urine Protein 1+ H (Negative) Urine Glucose (UA) Negative (Negative) Urine Ketones Negative (Negative) Urine Blood 2+ H (Negative) Urine Nitrite Positive A (Negative) Urine Bilirubin Negative (Negative) Urine Urobilinogen Negative (Negative) Ur Leukocyte Esterase Negative (Negative) Urine WBC (Auto) 1-5 (0-5) /hpf Urine RBC (Auto) 0-4 (0-4) /hpf U Hyaline Cast (Auto) 1-5 (0-5) /lpf U Epithel Cells (Auto) 10-20 H (0-5) /lpf Urine Bacteria (Auto) 4+ H (Negative) Adenovirus (PCR) (NotDetected) B. pertussis DNA (PCR) (NotDetected) B.parapertussis DNA PCR (NotDetected) C. pneumoniae DNA (PCR) (NotDetected) Coronavirus OC43 (PCR) (NotDetected) Coronavirus HKU1 (PCR) (NotDetected) Coronavirus 229E (PCR) (NotDetected) SARS-CoV-2 (PCR) (NotDetected) Coronavirus NL63 (PCR) (NotDetected) Human Metapneumovir PCR (NotDetected) Influenza Type A (PCR) (NotDetected) Influenza Type B (PCR) (NotDetected) M. pneumoniae (PCR) (NotDetected) Parainfluenza 1 (PCR) (NotDetected) Parainfluenza 2 (PCR) (NotDetected) Parainfluenza 3 (PCR) (NotDetected) Parainfluenza 4 (PCR) (NotDetected) RSV (PCR) (NotDetected) Entero/Rhino (PCR) (NotDetected) Administered Medications Potassium Chloride/Sodium Chloride (Normal Saline W/20 Meq Kcl) 20 meq in 1,000 mls @ 100 mls/hr IV .Q10H ETHAN; Protocol Stop: 01/05/24 20:29 Last Admin: 01/05/24 01:30 Dose: 100 mls/hr Documented By: LUNA Discontinued Medications Acetaminophen (Acetaminophen 500 Mg Tab) 1,000 mg PO NOW STA Stop: 01/04/24 22:42 Last Admin: 01/04/24 22:56 Dose: 1,000 mg Documented By: LUNA Sodium Chloride (Nss) 500 mls @ 999 mls/hr IV .Q31M ONE Stop: 01/04/24 23:11 Last Infusion: 01/04/24 23:43 Dose: Infused Documented By: Admin: 01/04/24 23:00 Dose: 999 mls/hr Documented By: LUNA Sodium Chloride (Nss) 1,000 mls @ 999 mls/hr IV .Q1H1M ETHAN Stop: 01/05/24 00:45 Last Infusion: 01/05/24 01:45 Dose: Infused Documented By: Admin: 01/04/24 23:57 Dose: 999 mls/hr Documented By: LUNA Ertapenem (Invanz) 10 mls @ 2 mls/min IV NOW STA Stop: 01/04/24 23:41 Last Admin: 01/04/24 23:55 Dose: 2 mls/min Documented By: LUNA Magnesium Sulfate/Dextrose (Magnesium Sulfate / D5w) 1 gm in 100 mls @ 50 mls/hr IV Q2H ETHAN Stop: 01/05/24 04:29 Last Admin: 01/05/24 03:25 Dose: 50 mls/hr Documented By: Infusion: 01/05/24 03:22 Dose: Infused Documented By: Admin: 01/05/24 01:21 Dose: 50 mls/hr Documented By: LUNA Sodium Chloride (Nss) 500 mls @ 999 mls/hr IV .Q31M ONE Stop: 01/05/24 01:12 Last Infusion: 01/05/24 01:30 Dose: Infused Documented By: Admin: 01/05/24 00:46 Dose: 999 mls/hr Documented By: LUNA Imaging Data Radiologist's Impression: Head CT 01/04/24 22:41 Exam(s): CT HEAD Without Contrast EXAM: CT Head Without Intravenous Contrast CLINICAL HISTORY: Reason for exam: AMS, Fall. TECHNIQUE: Axial computed tomography images of the head/brain without intravenous contrast. Automated exposure control was utilized for the study. A dose lowering technique was utilized adhering to the principles of ALARA. COMPARISON: No relevant prior studies available. FINDINGS: No acute intracranial hemorrhage. No midline shift or mass effect. The territorial dietrich-white matter differentiation is maintained throughout. Age-related cerebral volume loss. Periventricular and subcortical white matter hypoattenuation, consistent with chronic microangiopathy. The visualized orbits appear grossly unremarkable. The calvarium is intact. The visualized paranasal sinuses and mastoid air cells are grossly clear. IMPRESSION: No acute intracranial hemorrhage, midline shift, or mass effect. Electronically signed by: Kal Canales MD 01/04/24 23:53 PM Discharge Plan Visit Data Chief Complaint: Weakness Stated Complaint: WEAKNESS, FOOT, LEG AND BACK PAIN ED Provider: Lewis Albarran Discharge Problem: Severe sepsis, Rhabdomyolysis, Elevated troponin, Acute UTI (urinary tract infection) Patient Disposition: Admitted As Inpatient Discharge Instructions Interventions: ED Discharge Assessment Last Done: 01/05/24 01:29 Discharge Problem: Rhabdomyolysis Qualifiers: Rhabdomyolysis type: non-traumatic Qualified Code(s): M62.82 - Rhabdomyolysis
[2024-01-04] MEDS: ACETAMINOPHEN 500 MG TAB PO STA (22:56)
[2024-01-04 23:00] LABS: Basophils # (auto) 0.04 K/uL (0.00-0.20); Basophils % (auto) 0.2 %; Eosinophils # (auto) 0.01 K/uL (0.00-0.50); Eosinophils % (auto) 0.1 %; Hematocrit (blood only) 41.8 % (37.0-47.0); Hemoglobin 13.5 g/dl (12.0-16.0); Immature Granulocytes % (auto) 0.6 %; Lymphocytes # (auto) 0.91 K/uL (1.20-3.40); Lymphocytes % (auto) 5.3 %; Mean Corpuscular Hemoglobin 27.5 pg (25.0-34.0); Mean Corpuscular Hgb Conc 32.3 g/dL (32.0-36.0); Mean Corpuscular Volume 85.1 fL (80.0-100.0); Monocytes # (auto) 1.44 K/uL (0.11-0.59); Monocytes % (auto) 8.4 %; Neutrophils # (auto) 14.64 K/uL (1.40-6.50); Neutrophils % (auto) 85.4 %; Platelet Count 375 K/uL (130-400); RDW Coefficient of Variation 15.6 % (11.5-14.5); RDW Standard Deviation 47.9 fL (36.4-46.3); Red Blood Count 4.91 M/uL (4.20-5.40); White Blood Count 17.14 K/ul (4.8-10.8)
[2024-01-04] MEDS: SODIUM CHLORIDE 0.9% 500 ML IV ONE (23:00)
[2024-01-04 23:10] LABS: Prothrombin Time 11.4 Seconds (9.0-12.0)
[2024-01-04 23:31] LABS: Adenovirus PCR Not Detected (NotDetected); Bordetella parapertussis PCR Not Detected (NotDetected); Bordetella pertussis PCR Not Detected (NotDetected); Chlamydia pneumoniae PCR Not Detected (NotDetected); Coronavirus 229E PCR Not Detected (NotDetected); Coronavirus CoV-2 (COVID19)PCR Not Detected (NotDetected); Coronavirus HKU1 PCR Not Detected (NotDetected); Coronavirus NL63 PCR Not Detected (NotDetected); Coronavirus OC43PCR Not Detected (NotDetected); Human Metapneumovirus PCR Not Detected (NotDetected); Influenza A PCR Not Detected (NotDetected); Influenza B PCR Not Detected (NotDetected); Mycoplasma pneumoniae PCR Not Detected (NotDetected); Parainfluenza Virus 1 PCR Not Detected (NotDetected); Parainfluenza Virus 2 PCR Not Detected (NotDetected); Parainfluenza Virus 3 PCR Not Detected (NotDetected); Parainfluenza Virus 4 PCR Not Detected (NotDetected); Respiratory Syncytial VirusPCR Not Detected (NotDetected); Rhinovirus/Enterovirus PCR Not Detected (NotDetected)
[2024-01-04 23:37] LABS: Appearance Urine Clear (Clear); Bacteria Urine Automated 4+ (Negative); Bilirubin Urine Negative (Negative); Blood Urine 2+ (Negative); Color Urine Yellow; Glucose Urine UA Negative (Negative); Ketones Urine Negative (Negative); Leukocyte Esterase Urine Negative (Negative); Nitrite Urine Positive (Negative); Protein Urine 1+ (Negative); RBC Urine Automated 0-4 /hpf (0-4); Specific Gravity Urine 1.014 (1.000-1.030); Urobilinogen Urine Negative (Negative); pH Urine 5.5 (4.5-7.5)
[2024-01-04 23:44] LABS: Albumin Level 4.7 gm/dl (3.4-5.0); Bilirubin,Total 0.9 mg/dl (0.2-1.0); Calcium 10.5 mg/dl (8.6-10.3); Magnesium 1.6 mg/dl (1.7-2.4); Potassium 3.6 mmol/L (3.5-5.1)
[2024-01-04 23:50] LABS: BUN Creatinine Ratio 22.1 (10-20); Creatinine Clr Calc Pharmacy 32.7 ml/min; Est GFR (African American) 56.7 ml/min; Thyroid Stimulating Hormone 2.565 uIu/ml (0.300-4.500)
--- NOTE | 2024-01-04 23:54 | CT Scan Report ---
Exam(s): CT HEAD Without Contrast EXAM: CT Head Without Intravenous Contrast CLINICAL HISTORY: Reason for exam: AMS, Fall. TECHNIQUE: Axial computed tomography images of the head/brain without intravenous contrast. Automated exposure control was utilized for the study. A dose lowering technique was utilized adhering to the principles of ALARA. COMPARISON: No relevant prior studies available. FINDINGS: No acute intracranial hemorrhage. No midline shift or mass effect. The territorial dietrich-white matter differentiation is maintained throughout. Age-related cerebral volume loss. Periventricular and subcortical white matter hypoattenuation, consistent with chronic microangiopathy. The visualized orbits appear grossly unremarkable. The calvarium is intact. The visualized paranasal sinuses and mastoid air cells are grossly clear. IMPRESSION: No acute intracranial hemorrhage, midline shift, or mass effect. Electronically signed by: Kal Canales MD 01/04/24 23:53 PM
[2024-01-04] MEDS: ERTAPENEM SODIUM 10 ML IV STA (23:55)
[2024-01-04] MEDS: SODIUM CHLORIDE 0.9% 1,000 ML IV SCH (23:57)
[2024-01-05 00:34] LABS: Albumin Globulin Ratio 1.3 (0.9-2); Globulin 3.5 gm/dl (2.5-4.0); Total Protein 8.2 gm/dl (6.0-8.3); Troponin I High Sensitivity 251.2 pg/ml (0-14)
[2024-01-05] MEDS: SODIUM CHLORIDE 0.9% 500 ML IV ONE (00:46)
[2024-01-05] MEDS: MAGNESIUM SULFATE / D5W 1 GM/100 ML BAG IV SCH (01:21)
[2024-01-05] MEDS ORDERED: ONDANSETRON INJ 2 MG/ML 2 ML VIAL IV PRN (01:29)
[2024-01-05] MEDS: NSS + 20MEQ KCL 20 MEQ/1,000 ML BAG IV SCH (01:30)
--- NOTE | 2024-01-05 04:07 | History & Physical Report ---
Date of Service January 05, 2024 Assessment & Plan (1) Urinary tract infection: (2) Rhabdomyolysis: (3) CKD (chronic kidney disease) stage 3, GFR 30-59 ml/min: (4) Mild cognitive impairment: (5) Hyperlipidemia: (6) Abrasion of foot, left: (7) Abrasion of foot, right: (8) Elevated troponin: (9) Hypertension: Plan Urinary tract infection- Likely cause of her confusion, generalized weakness and fatigue Patient with possible early sepsis Follow urine culture and sensitivities Ertapenem 1 g IV every 24 hours, chosen due to issues with other medications Status post 1.5 L normal saline in the ED Place on NSS + KCl 20 mill equivalents at 100 mL/h x 2 L CKD stage III/acute rhabdomyolysis/elevated troponin/dehydration- CK 3708 Troponin initially 251.2 with follow-up pending Creatinine stable at 1.04 IV fluids as noted above Follow serial renal function panel, CK and troponin levels I think elevated troponin and elevated troponin are related more to rhabdomyolysis and kidney disease than cardiac issues Hypomagnesemia- Magnesium 1.6 on admission Give 2 g mag sulfate IV, and recheck laboratories in a.m. Skin abrasions of dorsum of feet bilaterally- Due to position that her son found her in, with her feet curled underneath her behind her knees Not infected Consult wound care Consult PT/OT, as patient would likely require inpatient rehab postdischarge Admission and Anticipated Discharge Date Admission Date: January 05, 2024 History of Present Illness Chief Complaint: The patient presents to the emergency department with about 2 days of progressively worsening generalized weakness, with difficulty walking with her walker, and requiring more assistance from family for ADLs such as getting up and down off the commode. She reports significant difficulty with sleeping at nighttime Primary Care Provider: Tanya Mcclelland MD The patient is a 83-year-old female with a past medical history including CKD stage III, mild cognitive impairment, right knee osteoarthritis, hyperlipidemia, TMJ, LBBB, hypertension and vulvar carcinoma. She presents to the emergency department with a couple days of worsening generalized weakness, particularly in her legs, affecting her ability to walk with her walker, and require additional help for ADLs getting up and down on the commode. Her son who is in the examination room, helps provide patient's history. She herself looks very fatigued this evening. The patient's son reports that when he found her, she was lying on the ground, and her feet were curled in behind her knees Allergies Allergy/AdvReac Type Severity Reaction Status Date / Time Penicillins Allergy Intermediate Swelling Verified 10/27/23 14:23 of Lip/Tongue/Throat Home Medications Medication Instructions Recorded Confirmed Type cholecalciferol (vitamin D3) 50 2,000 unit PO DAILY 01/04/24 01/04/24 History mcg (2,000 unit) capsule (Vitamin D3) losartan 25 mg tablet 25 mg PO DAILY 01/04/24 01/04/24 History vit C 250 mg-vit E 90 mg-zinc 40 1 tab PO DAILY 01/04/24 01/04/24 History mg-copper 1 [id number] capsule (PreserVision AREDS-2) Past Med/Surg History Medical History Acute kidney injury Anemia CKD (chronic kidney disease) stage 3, GFR 30-59 ml/min Dislocated mandible DVT prophylaxis Encounter for pre-operative examination Glaucoma Hiatal hernia History of chemotherapy Hyperlipidemia Hypertension LBBB (left bundle branch block) Osteoarthritis of right knee Osteoporosis Recurrent dislocation of left temporomandibular joint Vulvar carcinoma (01/19/20) Surgical History History of mandibular surgery Hx of bilateral cataract extraction H/O colonoscopy (~2017) S/P iridectomy History of hysterectomy History of hernia repair History of arthroscopy of right knee History of bladder repair surgery Family History Mother Stroke Father Stroke Son No problems noted. Son No problems noted. Family/Other Hypertension Denies family history of Ovarian cancer Prostate cancer Myocardial infarction Breast cancer Colorectal cancer Social History (Updated 09/30/23 @ 16:00 by FAUZIA Mills) Smoking Status: Never smoker Second Hand Exposure: No (parents smoked several yrs ago); Do You Dip or Chew Tobacco: No; Hx Alcohol Use: No Hx Substance Use: No Preferred Language: [place]an Communication Ability: Effective Visual Impairment: Limited Hearing Ability: Normal Crankshaft Straightener Required: No Beliefs That Will Affect Care: None marital status: / Current Living Situation: Alone current occupational status: retired How many Children do You have: 2 Feels Safe at Home: Yes Childhood Exposure to Second-Hand Smoke: No Diet: regular caffeine: Yes (2 cups a day) Dental Care, Regularly: Yes Physical Activity Frequency: Daily Physical Activity Frequency Comment: walks in apartment hallway Seatbelt Use: always Sunscreen Use: No Assistive Devices: Glasses and Walker Review of Systems Review of Systems: The patient denies chest pain, palpitations, shortness of breath, dyspnea on exertion, cough, lower extremity swelling, sore throat, fevers, chills, sweats, nausea, vomiting, diarrhea , constipation, abdominal pain, pelvic pain, blood in urine or stool, dysuria, urinary frequency or urgency, lightheadedness, dizziness, headache, loss of consciousness, rash, abnormal bruising or bleeding, focal or generalized weakness, numbness or tingling in arms, generalized arthralgias or myalgias, back or neck pain, or night sweats. The review of systems is otherwise negative other than for that already noted above, and at least 10 systems have been reviewed. Physical Exam Physical Exam: The patient is awake, alert and oriented 3, looks very fatigued, normocephalic and atraumatic, lying in bed and in no acute distress. HEENT--PERRL, EOMI, mucous membranes and oropharynx mildly dry. Neck--supple. No JVD. No bruits. Thyroid normal, trachea midline, no adenopathy. Heart--normal S1 and S2. No murmurs, rubs or gallops. Lungs--clear bilaterally, no respiratory distress, no accessory muscle use. Abdomen--normal bowel sounds and soft. Nontender. Nondistended, no hernias or masses, no organomegaly. Extremities--no cyanosis or clubbing. No edema. Dermatologic--normal skin turgor, normal color, no abnormal lymph nodes, no rash. Neurologic--cranial nerves II through XII grossly intact. Rheumatologic--normal range of motion. Psychiatric--normal affect. Results & Data Results & Data Vital Signs (Past 12 Hours) Vital Signs Temp Pulse Pulse Resp BP BP Pulse Ox 01/05/24 02:19 92 H 01/05/24 01:56 93 H 16 154/84 H 96 01/05/24 01:29 91 H 17 154/84 H 94 01/05/24 01:29 91 H 17 98 01/05/24 00:10 98 H 22 01/05/24 00:00 143/79 H 01/05/24 00:00 94 H 20 94 01/04/24 23:50 96 H 19 95 01/04/24 23:40 94 01/04/24 23:39 142/75 H 01/04/24 23:28 103 H 24 95 01/04/24 23:20 107 H 20 96 01/04/24 23:10 106 H 19 01/04/24 23:00 129/78 01/04/24 23:00 99 H 17 95 01/04/24 22:50 105 H 19 94 01/04/24 22:40 111 H 20 97 01/04/24 22:31 106 H 17 98 01/04/24 22:30 108 H 22 97 01/04/24 22:30 144/94 H 01/04/24 22:24 37.4 C 110 H 17 150/82 H 98 01/04/24 22:20 108 H 22 100 01/04/24 22:19 111 H 20 97 01/04/24 22:18 110 H 01/04/24 21:56 37.4 C 106 H 17 150/82 H 98 01/04/24 21:56 98 O2 Del Method O2 Flow Rate 01/05/24 02:19 01/05/24 01:56 Room Air 01/05/24 01:29 Room Air 01/05/24 01:29 Room Air 01/05/24 00:10 01/05/24 00:00 01/05/24 00:00 Nasal Cannula 2 01/04/24 23:50 Nasal Cannula 2 01/04/24 23:40 Nasal Cannula 2 01/04/24 23:39 01/04/24 23:28 Nasal Cannula 2 01/04/24 23:20 Nasal Cannula 2 01/04/24 23:10 01/04/24 23:00 01/04/24 23:00 Nasal Cannula 2 01/04/24 22:50 Nasal Cannula 2 01/04/24 22:40 Nasal Cannula 2 01/04/24 22:31 Room Air 01/04/24 22:30 Nasal Cannula 2 01/04/24 22:30 01/04/24 22:24 Room Air 01/04/24 22:20 Nasal Cannula 2 01/04/24 22:19 Nasal Cannula 2 01/04/24 22:18 01/04/24 21:56 Room Air 01/04/24 21:56 Room Air Laboratory Results Laboratory Results WBC 17.14 K/ul (4.8-10.8) H 01/04/24 22:10 RBC 4.91 M/uL (4.20-5.40) 01/04/24 22:10 Hgb 13.5 g/dl (12.0-16.0) 01/04/24 22:10 Hct 41.8 % (37.0-47.0) 01/04/24 22:10 MCV 85.1 fL (80.0-100.0) 01/04/24 22:10 MCH 27.5 pg (25.0-34.0) 01/04/24 22:10 MCHC 32.3 g/dL (32.0-36.0) 01/04/24 22:10 RDW Std Deviation 47.9 fL (36.4-46.3) H 01/04/24 22:10 RDW Coeff of Joe 15.6 % (11.5-14.5) H 01/04/24 22:10 Plt Count 375 K/uL (130-400) 01/04/24 22:10 MPV 12.0 fL (9.4-12.4) 01/04/24 22:10 Immature Gran % (Auto) 0.6 % 01/04/24 22:10 Neut % (Auto) 85.4 % 01/04/24 22:10 Lymph % (Auto) 5.3 % 01/04/24 22:10 [place] % (Auto) 8.4 % 01/04/24 22:10 Eos % (Auto) 0.1 % 01/04/24 22:10 Baso % (Auto) 0.2 % 01/04/24 22:10 Neut # (Auto) 14.64 K/uL (1.40-6.50) H 01/04/24 22:10 Lymph # (Auto) 0.91 K/uL (1.20-3.40) L 01/04/24 22:10 [place] # (Auto) 1.44 K/uL (0.11-0.59) H 01/04/24 22:10 Eos # (Auto) 0.01 K/uL (0.00-0.50) 01/04/24 22:10 Baso # (Auto) 0.04 K/uL (0.00-0.20) 01/04/24 22:10 Immature Gran # (Auto) 0.10 K/uL (0.01-0.20) 01/04/24 22:10 PT 11.4 Seconds (9.0-12.0) 01/04/24 22:10 INR 1.0 (0.9-1.1) 01/04/24 22:10 Sodium 136 mmol/L (136-145) 01/04/24 22:10 Potassium 3.6 mmol/L (3.5-5.1) 01/04/24 22:10 Chloride 101 mmol/L (98-107) 01/04/24 22:10 Carbon Dioxide 25 mmol/L (21-32) 01/04/24 22:10 Anion Gap 10 (3-11) 01/04/24 22:10 BUN 23 mg/dl (6-23) 01/04/24 22:10 Creatinine 1.04 mg/dl (0.6-1.2) 01/04/24 22:10 Est Cr Clr Drug Dosing 32.7 ml/min 01/04/24 22:10 Est GFR ( Amer) 56.7 ml/min 01/04/24 22:10 Est GFR (Non-Af Amer) 49.0 ml/min 01/04/24 22:10 BUN/Creatinine Ratio 22.1 (10-20) H 01/04/24 22:10 Glucose 113 mg/dl (70-99(Fasting)) H 01/04/24 22:10 Lactate 1.3 mmol/L (0.4-2.0) 01/04/24 23:10 Calcium 10.5 mg/dl (8.6-10.3) H 01/04/24 22:10 Magnesium 1.6 mg/dl (1.7-2.4) L 01/04/24 22:10 Total Bilirubin 0.9 mg/dl (0.2-1.0) 01/04/24 22:10 AST 75 U/L (13-39) H 01/04/24 22:10 ALT 25 U/L (7-52) 01/04/24 22:10 Alkaline Phosphatase 118 U/L (34-104) H 01/04/24 22:10 Total Creatine Kinase 3708 U/L (26-192) H 01/04/24 22:10 Troponin I High Sens 386.6 pg/ml (0-14) H* D 01/05/24 00:52 Total Protein 8.2 gm/dl (6.0-8.3) 01/04/24 22:10 Albumin 4.7 gm/dl (3.4-5.0) 01/04/24 22:10 Globulin 3.5 gm/dl (2.5-4.0) 01/04/24 22:10 Albumin/Globulin Ratio 1.3 (0.9-2) 01/04/24 22:10 Procalcitonin 0.08 ng/ml (0-0.5) 01/04/24 22:39 TSH 2.565 uIu/ml (0.300-4.500) 01/04/24 22:10 Urine Color Yellow 01/04/24 23:24 Urine Appearance Clear (Clear) 01/04/24 23:24 Urine pH 5.5 (4.5-7.5) 01/04/24 23:24 Ur Specific [place] 1.014 (1.000-1.030) 01/04/24 23:24 Urine Protein 1+ (Negative) H 01/04/24 23:24 Urine Glucose (UA) Negative (Negative) 01/04/24 23:24 Urine Ketones Negative (Negative) 01/04/24 23:24 Urine Blood 2+ (Negative) H 01/04/24 23:24 Urine Nitrite Positive (Negative) A 01/04/24 23:24 Urine Bilirubin Negative (Negative) 01/04/24 23:24 Urine Urobilinogen Negative (Negative) 01/04/24 23:24 Ur Leukocyte Esterase Negative (Negative) 01/04/24 23:24 Urine WBC (Auto) 1-5 /hpf (0-5) 01/04/24 23:24 Urine RBC (Auto) 0-4 /hpf (0-4) 01/04/24 23:24 U Hyaline Cast (Auto) 1-5 /lpf (0-5) 01/04/24 23:24 U Epithel Cells (Auto) 10-20 /lpf (0-5) H 01/04/24 23:24 Urine Bacteria (Auto) 4+ (Negative) H 01/04/24 23:24 Adenovirus (PCR) Not Detected (NotDetected) 01/04/24 22:10 B. pertussis DNA (PCR) Not Detected (NotDetected) 01/04/24 22:10 B.parapertussis DNA PCR Not Detected (NotDetected) 01/04/24 22:10 C. pneumoniae DNA (PCR) Not Detected (NotDetected) 01/04/24 22:10 Coronavirus OC43 (PCR) Not Detected (NotDetected) 01/04/24 22:10 Coronavirus HKU1 (PCR) Not Detected (NotDetected) 01/04/24 22:10 Coronavirus 229E (PCR) Not Detected (NotDetected) 01/04/24 22:10 SARS-CoV-2 (PCR) Not Detected (NotDetected) 01/04/24 22:10 Coronavirus NL63 (PCR) Not Detected (NotDetected) 01/04/24 22:10 Human Metapneumovir PCR Not Detected (NotDetected) 01/04/24 22:10 Influenza Type A (PCR) Not Detected (NotDetected) 01/04/24 22:10 Influenza Type B (PCR) Not Detected (NotDetected) 01/04/24 22:10 M. pneumoniae (PCR) Not Detected (NotDetected) 01/04/24 22:10 Parainfluenza 1 (PCR) Not Detected (NotDetected) 01/04/24 22:10 Parainfluenza 2 (PCR) Not Detected (NotDetected) 01/04/24 22:10 Parainfluenza 3 (PCR) Not Detected (NotDetected) 01/04/24 22:10 Parainfluenza 4 (PCR) Not Detected (NotDetected) 01/04/24 22:10 RSV (PCR) Not Detected (NotDetected) 01/04/24 22:10 Entero/Rhino (PCR) Not Detected (NotDetected) 01/04/24 22:[address] 01/04/24 22:41 Exam(s): CT HEAD Without Contrast EXAM: CT Head Without Intravenous Contrast CLINICAL HISTORY: Reason for exam: AMS, Fall. TECHNIQUE: Axial computed tomography images of the head/brain without intravenous contrast. Automated exposure control was utilized for the study. A dose lowering technique was utilized adhering to the principles of ALARA. COMPARISON: No relevant prior studies available. FINDINGS: No acute intracranial hemorrhage. No midline shift or mass effect. The territorial dietrich-white matter differentiation is maintained throughout. Age-related cerebral volume loss. Periventricular and subcortical white matter hypoattenuation, consistent with chronic microangiopathy. The visualized orbits appear grossly unremarkable. The calvarium is intact. The visualized paranasal sinuses and mastoid air cells are grossly clear. IMPRESSION: No acute intracranial hemorrhage, midline shift, or mass effect. Electronically signed by: Kla Canales MD 01/04/24 23:53 PM Code Status & VTE Plan Code Status Full code, as discussed with patient and son VTE Prophylaxis Plan VTE Prophylaxis will be ordered: Yes PG Care Time/CCT Total # of Minutes Spent Total Time Spent with Patient: Total time spent is greater than 50% in coordination of care (as documented) at patient's floor/unit and/or counseling patient: Coding Level of Care Code 19756 INT INP/OBS CARE 3/75MIN Diagnoses Urinary tract infection N39.0 Rhabdomyolysis M62.82 CKD (chronic kidney disease) stage 3, GFR 30-59 ml/min N18.30 Mild cognitive impairment G31.84 Hyperlipidemia E78.5 Abrasion of foot, left S90.812A Abrasion of foot, right S90.811A Elevated troponin R79.89 Hypertension I10
[2024-01-05 05:03] LABS: Basophils # (auto) 0.04 K/uL (0.00-0.20); Basophils % (auto) 0.3 %; Eosinophils # (auto) 0.01 K/uL (0.00-0.50); Eosinophils % (auto) 0.1 %; Hematocrit (blood only) 32.8 % (37.0-47.0); Hemoglobin 10.9 g/dl (12.0-16.0); Immature Granulocytes # (auto) 0.04 K/uL (0.01-0.20); Immature Granulocytes % (auto) 0.3 %; Lymphocytes # (auto) 1.01 K/uL (1.20-3.40); Lymphocytes % (auto) 7.2 %; Mean Corpuscular Hemoglobin 27.7 pg (25.0-34.0); Mean Corpuscular Hgb Conc 33.2 g/dL (32.0-36.0); Mean Corpuscular Volume 83.2 fL (80.0-100.0); Mean Platelet Volume 11.8 fL (9.4-12.4); Monocytes # (auto) 1.51 K/uL (0.11-0.59); Monocytes % (auto) 10.7 %; Neutrophils # (auto) 11.44 K/uL (1.40-6.50); Neutrophils % (auto) 81.4 %; Platelet Count 289 K/uL (130-400); RDW Coefficient of Variation 15.4 % (11.5-14.5); RDW Standard Deviation 46.3 fL (36.4-46.3); Red Blood Count 3.94 M/uL (4.20-5.40); White Blood Count 14.05 K/ul (4.8-10.8)
[2024-01-05 05:37] LABS: Albumin Level 3.5 gm/dl (3.4-5.0); Calcium 8.7 mg/dl (8.6-10.3); Potassium 3.5 mmol/L (3.5-5.1)
[2024-01-05 05:43] LABS: BUN Creatinine Ratio 20.9 (10-20); Creatinine Clr Calc Pharmacy 39.6 ml/min; Est GFR (African American) 71.4 ml/min; Est GFR (Non-African American) 61.6 ml/min
[2024-01-05 05:57] LABS: Phosphorus 2.6 mg/dl (2.5-4.9); Troponin I High Sensitivity 322.9 pg/ml (0-14)
--- NOTE | 2024-01-05 07:14 | XRay Report ---
XR chest 1V portable CLINICAL HISTORY: weakness TECHNIQUE: Single frontal radiograph of the chest was obtained. Comparison: Comparison is made to chest radiograph 08/08/2020 FINDINGS: Exam is limited by patient rotation. Cardiomegaly is noted. The aortic arch is calcified. The lungs a re clear. No evidence of pleural effusion or pneumothorax. IMPRESSION: No acute chest disease. ACT 112: Negative or not required by law. Electronically signed by: Elver Kelley M.D. 01/05/2024 7:13 AM
--- NOTE | 2024-01-05 07:21 | XRay Report ---
SINGLE VIEW PELVIS; 2 VIEWS RIGHT HIP CLINICAL HISTORY: Fall. Right hip pain. FINDINGS: An AP view of the pelvis with AP and crosstable lateral views of the right hip are correlat ed with pelvic CT dated 08/03/2023. The skeletal structures are osteopenic. There is no radiographic e vidence of acute fracture involving the hips or bony pelvis. Weiu-fp-kleosqje arthritic change and antelmo int space narrowing is seen in the hips. There is degenerative sclerosis of the sacroiliac joints and pubic symphysis. The overlying soft tissues are within normal limits. Advanced atherosclerotic calci fication is noted in the femoral arteries. Phleboliths are seen in the pelvis. IMPRESSION: There is no radiographic evidence of acute fracture. Electronically signed by: Byron Campbell M.D. 01/05/2024 7:20 AM
--- NOTE | 2024-01-05 08:11 | Electrocardiogram Report ---
Test Reason : Blood Pressure : / mmHG Vent. Rate : 112 BPM Atrial Rate : 112 BPM P-R Int : 156 ms QRS Dur : 130 ms QT Int : 370 ms P-R-T Axes : 058 029 108 degrees QTc Int : 505 ms Sinus tachycardia Left atrial enlargement Left bundle branch block Abnormal ECG When compared with ECG of 09-AUG-2020 15:28, Vent. rate has increased BY 57 BPM T wave inversion no longer evident in Anterior leads Confirmed by Kenrick Bridges ([id number]) on 01/05/2024 8:11:10 AM Referred By: REFERRED SELF Confirmed By:Kenrick Bridges
[2024-01-05] MEDS ORDERED: NON-FORMULARY MEDICATION (Vit C,E-Zn-Coppr-Lutein-Zeaxan [Preservision Areds-2] 250-90-40- PO SCH (09:00)
[2024-01-05] MEDS: LOSARTAN POTASSIUM 25 MG TAB PO SCH (09:02)
[2024-01-05] MEDS: CHOLECALCIFEROL 25 MCG (1000 UNITS) TAB PO SCH (09:04)
[2024-01-05] MEDS: HEPARIN SOD 5,000 UNIT/0.5 ML VIAL SQ SCH (09:04)
--- NOTE | 2024-01-05 15:49 | Communication Note ---
Date of Service: January 05, 2024 Please refer to the H&P dictated by Dr. Bassett earlier this morning for details of presentation on admission. In brief, this is an elderly lady who p resented to the emergency room with a few days of generalized weakness and inability to get around and do her ADLs. She was found lying on the floor by her son and thus was brought to the emergency room. She was diagnosed with a UTI, sepsis, rhabdomyolysis, metabolic encephalopathy. She is being treated with IV fluids, IV antibiotics. She likely has demand ischemia with troponin elevation related to rhabdomyolysis and kidney disease and sepsis. PT/OT have been consulted. She may need placement.
[2024-01-05] MEDS: ERTAPENEM SODIUM 1,000 MG in SYRINGE 0 ML IV SCH (20:46)
[2024-01-06 05:03] LABS: Basophils # (auto) 0.03 K/uL (0.00-0.20); Basophils % (auto) 0.2 %; Eosinophils # (auto) 0.01 K/uL (0.00-0.50); Eosinophils % (auto) 0.1 %; Hematocrit (blood only) 34.1 % (37.0-47.0); Hemoglobin 11.3 g/dl (12.0-16.0); Immature Granulocytes # (auto) 0.07 K/uL (0.01-0.20); Immature Granulocytes % (auto) 0.5 %; Lymphocytes # (auto) 1.19 K/uL (1.20-3.40); Lymphocytes % (auto) 7.9 %; Mean Corpuscular Hemoglobin 27.4 pg (25.0-34.0); Mean Corpuscular Hgb Conc 33.1 g/dL (32.0-36.0); Mean Corpuscular Volume 82.8 fL (80.0-100.0); Mean Platelet Volume 11.9 fL (9.4-12.4); Monocytes # (auto) 1.69 K/uL (0.11-0.59); Monocytes % (auto) 11.2 %; Neutrophils # (auto) 12.09 K/uL (1.40-6.50); Neutrophils % (auto) 80.1 %; Platelet Count 296 K/uL (130-400); RDW Coefficient of Variation 15.5 % (11.5-14.5); RDW Standard Deviation 46.6 fL (36.4-46.3); Red Blood Count 4.12 M/uL (4.20-5.40); White Blood Count 15.08 K/ul (4.8-10.8)
[2024-01-06 05:27] LABS: Albumin Level 3.5 gm/dl (3.4-5.0); Magnesium 1.7 mg/dl (1.7-2.4); Potassium 3.9 mmol/L (3.5-5.1)
[2024-01-06 05:32] LABS: BUN Creatinine Ratio 20.7 (10-20); Est GFR (African American) 65.8 ml/min; Est GFR (Non-African American) 56.8 ml/min; Phosphorus 2.5 mg/dl (2.5-4.9)
[2024-01-06] MEDS: ACETAMINOPHEN 325 MG TAB PO PRN (08:07)
--- NOTE | 2024-01-06 15:57 | Hospitalist Progress Note ---
Date of Service January 06, 2024 Assessment & Plan (1) Urinary tract infection: (2) Rhabdomyolysis: (3) CKD (chronic kidney disease) stage 3, GFR 30-59 ml/min: (4) Mild cognitive impairment: (5) Hyperlipidemia: (6) Abrasion of foot, left: (7) Abrasion of foot, right: (8) Elevated troponin: (9) Hypertension: Plan Urinary tract infection/sepsis/metabolic encephalopathy- Likely cause of her confusion, generalized weakness and fatigue Urine culture growing gram-negative barrett, awaiting sensitivities Continue ertapenem 1 g IV every 24 hours until sensitivities return Metabolic encephalopathy resolved Rhabdomyolysis CPK coming down Trend CPK Demand ischemia Elevated troponin is most likely related to rhabdomyolysis and kidney disease rather than cardiac issues Patient has no chest pain Generalized weakness PT/OT consulted Patient may likely need placement Hypomagnesemia- Repleted Skin abrasions of dorsum of feet bilaterally- Due to position that her son found her in, with her feet curled underneath her behind her knees Not infected Consult wound care Full code DVT prophylaxis: Heparin subcu Admission and Anticipated Discharge Date Admission Date: January 05, 2024 Subjective Patient feels better today. She is still weak in general. Her muscles are still achy. Review of Systems Review of Systems: All systems reviewed & are unremarkable except as noted in Subjective Physical Exam Physical Exam: General: Awake, conversant Heart: S1, S2/regular rate and rhythm, no murmur rubs or gallops Lungs: Clear to auscultation bilaterally. Normal effort Abdomen: Soft/nontender/nondistended. No hepatosplenomegaly Extremities: No clubbing/cyanosis. No edema Behavior: Appropriate, cooperative Results & Data Results & Data Vital Signs (Past 12 Hours) Vital Signs Temp Pulse Pulse Resp BP Pulse Ox O2 Del Method 01/06/24 11:35 36.6 C 87 17 124/75 98 Room Air 01/06/24 07:33 93 H 01/06/24 07:20 36.9 C 93 H 17 163/85 H 94 Room Air Laboratory Results Abnormal lab results 01/06/24 Range/Units 04:02 WBC 15.08 H (4.8-10.8) K/ul RBC 4.12 L (4.20-5.40) M/uL Hgb 11.3 L (12.0-16.0) g/dl Hct 34.1 L (37.0-47.0) % RDW Std Deviation 46.6 H (36.4-46.3) fL RDW Coeff of Joe 15.5 H (11.5-14.5) % Neut # (Auto) 12.09 H (1.40-6.50) K/uL Lymph # (Auto) 1.19 L (1.20-3.40) K/uL [place] # (Auto) 1.69 H (0.11-0.59) K/uL Sodium 134 L (136-145) mmol/L BUN/Creatinine Ratio 20.7 H (10-20) Total Creatine Kinase 1433 H (26-192) U/L PG Care Time/CCT Total # of Minutes Spent Total Time Spent with Patient: Total time spent is greater than 50% in coordination of care (as documented) at patient's floor/unit and/or counseling patient: Coding Level of Care Code 46979 SUB INP/OBS CARE 2/35MIN Diagnoses Urinary tract infection N39.0 Rhabdomyolysis M62.82 CKD (chronic kidney disease) stage 3, GFR 30-59 ml/min N18.30 Mild cognitive impairment G31.84 Hyperlipidemia E78.5 Abrasion of foot, left S90.812A Abrasion of foot, right S90.811A Elevated troponin R79.89 Hypertension I10
[2024-01-07 05:01] LABS: Basophils # (auto) 0.04 K/uL (0.00-0.20); Basophils % (auto) 0.4 %; Eosinophils # (auto) 0.14 K/uL (0.00-0.50); Eosinophils % (auto) 1.3 %; Hematocrit (blood only) 32.9 % (37.0-47.0); Hemoglobin 10.7 g/dl (12.0-16.0); Immature Granulocytes # (auto) 0.03 K/uL (0.01-0.20); Immature Granulocytes % (auto) 0.3 %; Lymphocytes # (auto) 1.18 K/uL (1.20-3.40); Mean Corpuscular Hemoglobin 27.4 pg (25.0-34.0); Mean Corpuscular Hgb Conc 32.5 g/dL (32.0-36.0); Mean Corpuscular Volume 84.4 fL (80.0-100.0); Mean Platelet Volume 12.2 fL (9.4-12.4); Monocytes # (auto) 1.02 K/uL (0.11-0.59); Monocytes % (auto) 9.5 %; Neutrophils # (auto) 8.33 K/uL (1.40-6.50); Neutrophils % (auto) 77.5 %; Platelet Count 278 K/uL (130-400); RDW Coefficient of Variation 15.5 % (11.5-14.5); RDW Standard Deviation 47.3 fL (36.4-46.3); White Blood Count 10.74 K/ul (4.8-10.8)
[2024-01-07 05:23] LABS: Albumin Level 3.2 gm/dl (3.4-5.0); BUN Creatinine Ratio 31.8 (10-20); Calcium 9.2 mg/dl (8.6-10.3); Creatinine Clr Calc Pharmacy 38.7 ml/min; Est GFR (African American) 69.4 ml/min; Est GFR (Non-African American) 59.9 ml/min; Magnesium 1.8 mg/dl (1.7-2.4); Phosphorus 2.2 mg/dl (2.5-4.9); Potassium 3.8 mmol/L (3.5-5.1)
[2024-01-07] MEDS ORDERED: LEVOFLOXACIN IV SCH (09:00)
[2024-01-07] MEDS ORDERED: levoFLOXacin/D5W 750 MG/150 ML BAG IV SCH (09:00)
[2024-01-07] MEDS ORDERED: DEXTROSE IV SCH (09:00)
[2024-01-07] MEDS: levoFLOXacin/D5W 500 MG/100 ML BAG IV SCH (10:37)
--- NOTE | 2024-01-07 15:04 | Hospitalist Progress Note ---
Date of Service January 07, 2024 Assessment & Plan (1) Urinary tract infection: (2) Rhabdomyolysis: (3) CKD (chronic kidney disease) stage 3, GFR 30-59 ml/min: (4) Mild cognitive impairment: (5) Hyperlipidemia: (6) Abrasion of foot, left: (7) Abrasion of foot, right: (8) Elevated troponin: (9) Hypertension: Plan Urinary tract infection/sepsis/metabolic encephalopathy- Likely cause of her confusion, generalized weakness and fatigue Urine culture grew pansensitive E. coli Switched from ertapenem to IV Levaquin Metabolic encephalopathy resolved Rhabdomyolysis CPK coming down, now in the 600s Demand ischemia Elevated troponin is most likely related to rhabdomyolysis and kidney disease rather than cardiac issues Patient has no chest pain Generalized weakness PT/OT consulted Patient will need placement. sales engineering manager working on it Hypomagnesemia- Repleted Skin abrasions of dorsum of feet bilaterally- Due to position that her son found her in, with her feet curled underneath her behind her knees Not infected Consult wound care Full code DVT prophylaxis: Heparin subcu Admission and Anticipated Discharge Date Admission Date: January 05, 2024 Subjective Patient feels better overall. Denies chest pain or shortness of breath. Review of Systems Review of Systems: All systems reviewed & are unremarkable except as noted in Subjective Physical Exam Physical Exam: General: Awake, conversant Heart: S1, S2/regular rate and rhythm, no murmur rubs or gallops Lungs: Clear to auscultation bilaterally. Normal effort Abdomen: Soft/nontender/nondistended. No hepatosplenomegaly Extremities: No clubbing/cyanosis. No edema Behavior: Appropriate, cooperative Results & Data Results & Data Vital Signs (Past 12 Hours) Vital Signs Temp Pulse Pulse Resp BP Pulse Ox O2 Del Method 01/07/24 14:53 84 01/07/24 12:17 36.6 C 88 18 105/68 96 Room Air 01/07/24 10:50 Room Air 01/07/24 07:35 36.9 C 91 H 18 142/78 H 91 Room Air 01/07/24 07:16 97 H PG Care Time/CCT Total # of Minutes Spent Total Time Spent with Patient: Total time spent is greater than 50% in coordination of care (as documented) at patient's floor/unit and/or counseling patient: Coding Level of Care Code 18103 SUB INP/OBS CARE 2/35MIN Diagnoses Urinary tract infection N39.0 Rhabdomyolysis M62.82 CKD (chronic kidney disease) stage 3, GFR 30-59 ml/min N18.30 Mild cognitive impairment G31.84 Hyperlipidemia E78.5 Abrasion of foot, left S90.812A Abrasion of foot, right S90.811A Elevated troponin R79.89 Hypertension I10
[2024-01-07] MEDS ORDERED: SODIUM CHLORIDE 0.65% NA SOLN 45 ML (OCEAN) PRN (21:32)
[2024-01-07] MEDS: LORATADINE 10 MG TAB PO SCH (22:05)
[2024-01-08] MEDS: levoFLOXacin/D5W 250 MG/50 ML BAG IV SCH (07:54)
--- NOTE | 2024-01-08 12:26 | Hospitalist Progress Note ---
Date of Service January 08, 2024 Assessment & Plan (1) Urinary tract infection: (2) Rhabdomyolysis: (3) CKD (chronic kidney disease) stage 3, GFR 30-59 ml/min: (4) Mild cognitive impairment: (5) Hyperlipidemia: (6) Abrasion of foot, left: (7) Abrasion of foot, right: (8) Elevated troponin: (9) Hypertension: Plan Acute uncomplicated E. coli urinary tract infection/sepsis/metabolic encephalopathy- Likely cause of her confusion, generalized weakness and fatigue Urine culture grew pansensitive E. coli Switched from ertapenem to IV Levaquin Metabolic encephalopathy resolved Rhabdomyolysis Resolved Demand ischemia Elevated troponin is most likely related to rhabdomyolysis and kidney disease rather than cardiac issues Patient has no chest pain Generalized weakness PT/OT consulted Patient will need placement. building and construction manager working on it Hypomagnesemia- Repleted Skin abrasions of dorsum of feet bilaterally- Due to position that her son found her in, with her feet curled underneath her behind her knees Not infected Consult wound care Full code DVT prophylaxis: Heparin subcu Admission and Anticipated Discharge Date Admission Date: January 05, 2024 Subjective Patient feels well. Denies chest pain or shortness of breath. Waiting for placement. Review of Systems Review of Systems: All systems reviewed & are unremarkable except as noted in Subjective Physical Exam Physical Exam: General: Awake, conversant Heart: S1, S2/regular rate and rhythm, no murmur rubs or gallops Lungs: Clear to auscultation bilaterally. Normal effort Abdomen: Soft/nontender/nondistended. No hepatosplenomegaly Extremities: No clubbing/cyanosis. No edema Behavior: Appropriate, cooperative Results & Data Results & Data Vital Signs (Past 12 Hours) Vital Signs Temp Pulse Pulse Resp BP Pulse Ox O2 Del Method 01/08/24 11:21 36.7 C 90 16 97/61 L 97 Room Air 01/08/24 08:19 36.6 C 88 18 148/78 H 95 Room Air 01/08/24 07:00 82 01/08/24 03:01 36.6 C 87 16 114/72 97 Room Air PG Care Time/CCT Total # of Minutes Spent Total Time Spent with Patient: Total time spent is greater than 50% in coordination of care (as documented) at patient's floor/unit and/or counseling patient: Coding Level of Care Code 53115 SUB INP/OBS CARE 2/35MIN Diagnoses Urinary tract infection N39.0 Rhabdomyolysis M62.82 CKD (chronic kidney disease) stage 3, GFR 30-59 ml/min N18.30 Mild cognitive impairment G31.84 Hyperlipidemia E78.5 Abrasion of foot, left S90.812A Abrasion of foot, right S90.811A Elevated troponin R79.89 Hypertension I10
[2024-01-09] MEDS: POLYETHYLENE (MIRALAX) 17 GM PACK PO PRN (10:42)
--- NOTE | 2024-01-09 12:29 | Hospitalist Progress Note ---
Date of Service January 09, 2024 Assessment & Plan (1) Urinary tract infection: (2) Rhabdomyolysis: (3) CKD (chronic kidney disease) stage 3, GFR 30-59 ml/min: (4) Mild cognitive impairment: (5) Hyperlipidemia: (6) Abrasion of foot, left: (7) Abrasion of foot, right: (8) Elevated troponin: (9) Hypertension: Plan Acute uncomplicated E. coli urinary tract infection/sepsis/metabolic encephalopathy- Likely cause of her confusion, generalized weakness and fatigue Urine culture grew pansensitive E. coli Switched from ertapenem to IV Levaquin Metabolic encephalopathy resolved Rhabdomyolysis Resolved Demand ischemia Elevated troponin is most likely related to rhabdomyolysis and kidney disease rather than cardiac issues Patient has no chest pain Generalized weakness PT/OT consulted Patient will need placement. manager plumbing working on it Hypomagnesemia- Repleted Skin abrasions of dorsum of feet bilaterally- Due to position that her son found her in, with her feet curled underneath her behind her knees Not infected Wound care involved Full code DVT prophylaxis: Heparin subcu Awaiting placement. Admission and Anticipated Discharge Date Admission Date: January 05, 2024 Subjective Patient feels well. Denies chest pain or shortness of breath. Awaiting placement Review of Systems Review of Systems: All systems reviewed & are unremarkable except as noted in Subjective Physical Exam Physical Exam: General: Awake, conversant Heart: S1, S2/regular rate and rhythm, no murmur rubs or gallops Lungs: Clear to auscultation bilaterally. Normal effort Abdomen: Soft/nontender/nondistended. No hepatosplenomegaly Extremities: No clubbing/cyanosis. No edema Behavior: Appropriate, cooperative Results & Data Results & Data Vital Signs (Past 12 Hours) Vital Signs Temp Pulse Pulse Resp BP Pulse Ox O2 Del Method 01/09/24 11:51 36.5 C 90 18 115/72 96 Room Air 01/09/24 07:25 36.8 C 90 18 120/76 95 Room Air 01/09/24 07:00 98 H 01/09/24 05:40 36.6 C 101 H 18 130/80 94 Room Air PG Care Time/CCT Total # of Minutes Spent Total Time Spent with Patient: Total time spent is greater than 50% in coordination of care (as documented) at patient's floor/unit and/or counseling patient: Coding Level of Care Code 63858 SUB INP/OBS CARE MIN Diagnoses Urinary tract infection N39.0 Rhabdomyolysis M62.82 CKD (chronic kidney disease) stage 3, GFR 30-59 ml/min N18.30 Mild cognitive impairment G31.84 Hyperlipidemia E78.5 Abrasion of foot, left S90.812A Abrasion of foot, right S90.811A Elevated troponin R79.89 Hypertension I10
[2024-01-09] MEDS: DOCUSATE SODIUM 100 MG CAP PO SCH (20:50)
--- NOTE | 2024-01-10 12:37 | Hospitalist Progress Note ---
Date of Service January 10, 2024 Assessment & Plan (1) Urinary tract infection: Plan: Likely cause of her confusion, generalized weakness and fatigue Urine culture grew pansensitive E. coli Switched from ertapenem to IV Levaquin - completed course 01/08 Metabolic encephalopathy resolved PT/OT for generalized weakness - recommending placement, case management following (2) Rhabdomyolysis: Plan: CK on admission 3708 Demand ischemia Elevated troponin is most likely related to rhabdomyolysis and kidney disease rather than cardiac issues Patient has no chest pain Resolved (3) CKD (chronic kidney disease) stage 3, GFR 30-59 ml/min: Plan: Noted Baseline Cr .8-.9 CrCl 35-40 Stable (4) Abrasion of foot, left: Plan: Skin abrasions of dorsum of feet bilaterally- Due to position that her son found her in, with her feet curled underneath her behind her knees Not infected Wound care following (5) Abrasion of foot, right: Plan: see left foot (6) Hypertension: Plan: Continue Losartan BP improved since admission Plan Dispo: continued inpatient stay, will downgrade to medical, medically stable DVT prophylaxis: Heparin subcu Son updated by phone Admission and Anticipated Discharge Date Admission Date: January 05, 2024 Subjective Patient sitting up in bed. Frustrated that she was delivered a lunch tray when she ate a late lunch. Reports pain on top of feet from fall RN reports bowel movement this morning Review of Systems Review of Systems: All systems reviewed & are unremarkable except as noted in Subjective Physical Exam Physical Exam: General: NAD, VS as above Resp: normal respiratory effort, lungs clear to auscultation CV: RRR, no murmur, Abd: normal bowel sounds, non tender, no hepatosplenomegaly Extremities: Moves all extremities, no edema Neuro: A&O x3, answers orientation questions properly but then talks about how she was in the kitchen this morning Results & Data Results & Data Vital Signs (Past 12 Hours) Vital Signs Temp Pulse Pulse Resp BP BP Pulse Ox 01/10/24 11:32 36.6 C 90 16 103/61 95 01/10/24 08:30 01/10/24 07:37 36.7 C 94 H 16 117/78 94 01/10/24 07:17 90 01/10/24 03:22 37 C 95 H 18 113/69 93 O2 Del Method 03/11/24 11:32 Room Air 01/10/24 08:30 Room Air 01/10/24 07:37 Room Air 01/10/24 07:17 01/10/24 03:22 Room Air PG Care Time/CCT Total # of Minutes Spent Total Time Spent with Patient: Total time spent is greater than 50% in coordination of care (as documented) at patient's floor/unit and/or counseling patient: Coding Level of Care Code 19803 SUB INP/OBS CARE 2/35MIN Diagnoses Urinary tract infection N39.0 Rhabdomyolysis M62.82 CKD (chronic kidney disease) stage 3, GFR 30-59 ml/min N18.30 Abrasion of foot, left S90.812A Abrasion of foot, right S90.811A Hypertension I10
--- NOTE | 2024-01-11 13:04 | Hospitalist Progress Note ---
Date of Service January 11, 2024 Assessment & Plan (1) Urinary tract infection: Plan: Likely cause of her confusion, generalized weakness and fatigue Urine culture grew pansensitive E. coli Switched from ertapenem to IV Levaquin - completed course 01/08 Metabolic encephalopathy resolved PT/OT for generalized weakness - recommending placement, case management following (2) Rhabdomyolysis: Plan: CK on admission 3708 Demand ischemia Elevated troponin is most likely related to rhabdomyolysis and kidney disease rather than cardiac issues Patient has no chest pain Resolved (3) CKD (chronic kidney disease) stage 3, GFR 30-59 ml/min: Plan: Noted Baseline Cr .8-.9 CrCl 35-40 Stable (4) Abrasion of foot, left: Plan: Skin abrasions of dorsum of feet bilaterally- Due to position that her son found her in, with her feet curled underneath her behind her knees Not infected Wound care following (5) Abrasion of foot, right: Plan: see left foot (6) Hypertension: Plan: Continue Losartan Episode of hypotension this morning, patient sitting up in bed, asymptomatic. Recheck Later BP had improved. Ecouraged PO intake Plan Dispo: continued inpatient stay, medically stable DVT prophylaxis: Heparin subcu Admission and Anticipated Discharge Date Admission Date: January 05, 2024 Subjective Patient resting in bed. BP 90/50s - patient asymptomatic, denies lightheadedness, dizziness. Pain in feet improving. reports feeling tired. Review of Systems Review of Systems: All systems reviewed & are unremarkable except as noted in Subjective Physical Exam Physical Exam: General: NAD, VS as above Resp: normal respiratory effort, lungs clear to auscultation CV: RRR, no murmur, Abd: normal bowel sounds, non tender, no hepatosplenomegaly Extremities: Moves all extremities, no edema Results & Data Results & Data Vital Signs (Past 12 Hours) Vital Signs Temp Pulse Resp BP BP Pulse Ox O2 Del Method 01/11/24 12:38 99 H 16 119/69 01/11/24 11:05 36.6 C 97 H 16 89/55 L 94 Room Air 01/11/24 11:04 36.6 C 98 H 18 94/58 L 94 Room Air 01/11/24 10:49 Room Air 01/11/24 07:52 37.1 C 114 H 18 106/71 94 Room Air PG Care Time/CCT Total # of Minutes Spent Total Time Spent with Patient: Total time spent is greater than 50% in coordination of care (as documented) at patient's floor/unit and/or counseling patient: Coding Level of Care Code 40836 SUB INP/OBS CARE 2/35MIN Diagnoses Urinary tract infection N39.0 Rhabdomyolysis M62.82 CKD (chronic kidney disease) stage 3, GFR 30-59 ml/min N18.30 Abrasion of foot, left S90.812A Abrasion of foot, right S90.811A Hypertension I10
[2024-01-11] MEDS: DICLOFENAC SOD 1% GEL 100 GM TUBE EXT SCH (20:07)
[2024-01-12 00:22] VITALS: O2SAT 95
[2024-01-12 07:11] VITALS: RESP 16; TEMP 97.7
[2024-01-12] MEDS: CEROVITE ADV FORMULA TAB PO SCH (07:50)
[2024-01-12 11:31] VITALS: BP 114/66; PULSE 92
--- NOTE | 2024-01-12 13:10 | Discharge Summary ---
Discharge Summary Date of Service January 12, 2024 Notes For Next Care Provider Hospitalized for weakness secondary to UTI. Completed course of IV antibiotics while inpatient. Discharged to rehab Admission HPI Per Admitting Provider The patient is a 83-year-old female with a past medical history including CKD stage III, mild cognitive impairment, right knee osteoarthritis, hyperlipidemia, TMJ, LBBB, hypertension and vulvar carcinoma. She presents to the emergency department with a couple days of worsening generalized weakness, particularly in her legs, affecting her ability to walk with her walker, and require additional help for ADLs getting up and down on the commode. Her son who is in the examination room, helps provide patient's history. She herself looks very fatigued this evening. The patient's son reports that when he found her, she was lying on the ground, and her feet were curled in behind her knees Principal Dx & Hospital Course #1 = Principal Diagnosis (1) Urinary tract infection: Likely cause of her confusion, generalized weakness and fatigue Urine culture grew pansensitive E. coli Switched from ertapenem to IV Levaquin - completed course 01/08 Metabolic encephalopathy resolved PT/OT for generalized weakness - recommending placement, discharged to [facility] today (2) Rhabdomyolysis: CK on admission 3708 Demand ischemia Elevated troponin is most likely related to rhabdomyolysis and kidney disease rather than cardiac issues Patient has no chest pain Resolved (3) CKD (chronic kidney disease) stage 3, GFR 30-59 ml/min: Noted Baseline Cr .8-.9 CrCl 35-40 Stable (4) Abrasion of foot, left: Skin abrasions of dorsum of feet bilaterally- Due to position that her son found her in, with her feet curled underneath her behind her knees Not infected Wound care following (5) Abrasion of foot, right: see left foot (6) Hypertension: Continue Losartan stable Plan dispo: Discharged to [facility] today Discharge Exam General: NAD, VS as above Resp: normal respiratory effort, lungs clear to auscultation CV: RRR, no murmur, Extremities: Moves all extremities, no edema. bandage present over bilateral dorsum of foot wound Updated Medication List Medication Instructions Recorded Confirmed Type cholecalciferol (vitamin D3) 50 2,000 unit PO DAILY 01/04/24 01/04/24 History mcg (2,000 unit) capsule (Vitamin D3) losartan 25 mg tablet 25 mg PO DAILY 01/04/24 01/04/24 History vit C 250 mg-vit E 90 mg-zinc 40 1 tab PO DAILY 01/04/24 01/04/24 History mg-copper 1 [id number] capsule (PreserVision AREDS-2) acetaminophen 325 mg tablet 650 mg (2 x 325 mg) PO Q4H PRN 01/12/24 Rx fever or pain 30 days #30 tabs diclofenac sodium 1 % topical gel 2 g EXT QID 30 days #30 grams 01/12/24 Rx (Voltaren Arthritis Pain) docusate sodium 100 mg capsule 100 mg PO DAILY 30 days #30 caps 01/12/24 Rx Hospital Stay Data Consultations 01/05/24 00:36 ED Decision to Admit Stat Diagnostic Imagining Performed Chest X-Ray 01/04/24 22:31 XR chest 1V portable CLINICAL HISTORY: weakness TECHNIQUE: Single frontal radiograph of the chest was obtained. Comparison: Comparison is made to chest radiograph 08/08/2020 FINDINGS: Exam is limited by patient rotation. Cardiomegaly is noted. The aortic arch is calcified. The lungs are clear. No evidence of pleural effusion or pneumothorax. IMPRESSION: No acute chest disease. ACT 112: Negative or not required by law. Electronically signed by: Elver Kelley M.D. 01/05/2024 7:[address] 01/04/24 22:41 Exam(s): CT HEAD Without Contrast EXAM: CT Head Without Intravenous Contrast CLINICAL HISTORY: Reason for exam: AMS, Fall. TECHNIQUE: Axial computed tomography images of the head/brain without intravenous contrast. Automated exposure control was utilized for the study. A dose lowering technique was utilized adhering to the principles of ALARA. COMPARISON: No relevant prior studies available. FINDINGS: No acute intracranial hemorrhage. No midline shift or mass effect. The territorial dietrich-white matter differentiation is maintained throughout. Age-related cerebral volume loss. Periventricular and subcortical white matter hypoattenuation, consistent with chronic microangiopathy. The visualized orbits appear grossly unremarkable. The calvarium is intact. The visualized paranasal sinuses and mastoid air cells are grossly clear. IMPRESSION: No acute intracranial hemorrhage, midline shift, or mass effect. Electronically signed by: Kal Canales MD 01/04/24 23:53 PM Hip/Pelvis X-Ray 01/04/24 22:41 SINGLE VIEW PELVIS; 2 VIEWS RIGHT HIP CLINICAL HISTORY: Fall. Right hip pain. FINDINGS: An AP view of the pelvis with AP and crosstable lateral views of the right hip are correlated with pelvic CT dated 08/03/2023. The skeletal structures are osteopenic. There is no radiographic evidence of acute fracture involving the hips or bony pelvis. Xieg-di-dzcvyyik arthritic change and joint space narr owing is seen in the hips. There is degenerative sclerosis of the sacroiliac joints and pubic symphysis. The overlying soft tissues are within normal limits. Advanced atherosclerotic calcification is noted in the femoral arteries. Phleboliths are seen in the pelvis. IMPRESSION: There is no radiographic evidence of acute fracture. Electronically signed by: Byron Campbell M.D. 01/05/2024 7:20 AM Pending Results Patient Have Any Pending Studies at Discharge: No Discharge Instructions Given to Patient (Per Discharging Provider) Ms. Scott, Salvatore were hospitalized after feeling week. You were found to have UTI and completed your course of anitbiotics. You will need rehab to get stronger. There were no changes to your home medications. - you were started on colace to help with a bowel regiment, this can be purchased over the counter and you can take one tablet daily - You can continue to use voltaren gel for pain. This is also over the counter, follow package instructions Follow-up appointments: Make an appointment with your primary care physician within one week of discharge. A copy of this summary will be sent to them. Every time you see your primary care physician, or any other doctor, bring your medication list, and a list of questions. CONTACT YOUR PRIMARY CARE PROVIDER if you experience any of the following: Shortness of breath or difficulty breathing Fevers or chills Feeling tired with normal activity or experiencing dizziness or fainting Difficulty following your treatment plan, or difficulty taking medications CALL 911 OR GO TO THE EMERGENCY DEPARTMENT if you experience any of the following: Severe abdominal pain or nausea/vomiting Severe chest pain, or chest pain that radiates (moves) to your jaw or arm Sudden, severe shortness of breath or difficulty breathing Thank you for allowing us to participate in your care. Total Time Total Time Spent Total Time Spent (In Minutes): Time spend day of discharge 35 minutes including direct patient care, medication reconciliation, documentation, review of labs and images, and coordination of care. Coding Level of Care Code 48935 INP/OBS DISCH >30 MIN Diagnoses Urinary tract infection N39.0 Rhabdomyolysis M62.82 CKD (chronic kidney disease) stage 3, GFR 30-59 ml/min N18.30 Abrasion of foot, left S90.812A Abrasion of foot, right S90.811A Hypertension I10
== END 2024-01-12 14:45 | DRG 871 ==
LOC: ED 21:59 → EDINP 01-05 00:43 → SUATTDRO 01-05 00:43 → 2W 01-05 01:29 → 3W 01-12 00:15

== ENCOUNTER 2024-12-01 11:21 | Inpatient (IN) ==
--- NOTE | 2024-12-01 12:18 | Emergency Department Note ---
Impression & Plan PAD (peripheral artery disease), Cellulitis of foot ADMIT ED Provider Note HPI: History obtained from patient. The patient is a 84-year-old female who presents the emergency department with a chief complaint of right foot pain. Patient states over the past 2 weeks she has noticed some increasing redness and pain in her right foot. She does have some wounds on the plantar surface of her foot underneath the first several digits where they have been applying Vaseline. Patient states that she has had increased redness and pain over the past several weeks and today she was evaluated by a doctor at her nursing facility and told to come to the ER for further assessment. Reportedly patient had pulses that were difficult to detect over the past 24 hours. On arrival here to the ED the patient does have erythema mostly over the dorsal aspect of the foot and overlying the ulcerations in the skin folds of the first several digits of her right foot. Vaseline has been applied to these areas. The foot is warm to touch and patient does have motor function intact. Patient is otherwise hemodynamically stable on arrival, patient is afebrile on arrival. ROS: - Per HPI Differential Diagnosis: Cellulitis, osteomyelitis, abscess, ischemic limb, necrotizing soft tissue infection, amongst other potential pathologies. *Outpatient medications and allergy history reviewed. PE: General: Alert, frail-appearing HEENT: Normocephalic, trachea midline Eyes: Extraocular eye movement is intact, no scleral erythema Pulmonary: Clear to auscultation bilaterally, no wheezing Cardio: Regular rate and rhythm GI: Abdomen is soft to palpation : No suprapubic tenderness MSK: There is erythema of the dorsal and plantar aspect of the right foot with some pallor of the very distal ends of digits 1 through 3, there are chronic appearing ulcerations in the skin folds of digits 1 through 3 with some mild purulent surrounding drainage, otherwise no evidence of trauma or malformation of the extremities, no edema, I am unable to palpate a DP pulse in the right lower extremity however it is warm to the touch and motor function is intact Skin: Right lower extremity findings as above, otherwise no evidence of rash Neuro: Alert, no focal deficits Psychiatric: Cooperative INDEPENDENT INTERPRETATIONS: 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 Lab work shows no leukocytosis, hemoglobin is stable at 11.2, platelet count is normal, CMP does not show any evidence of any critical findings. Procalcitonin is fairly low at 0.03. I was unable to detect DP signal on Doppler and I was unable to palpate a DP pulse in the right lower extremity on the patient's arrival. Despite this her right lower extremity is warm to the touch, she does not appear to have an ischemic limb and she does have motor function intact. CT angiography of the right lower extremity was obtained, there is evidence of multiple stenotic areas in multiple arteries in the right lower extremity with reconstitution distally from collateral circulation of a tiny appearing DP artery and tiny appearing posterior tibial artery per the interpreting radiologist. Patient's foot appears to have an acute infection, she will be covered with IV antibiotics and vancomycin and cefepime were ordered. I did discuss the patient's presentation and CT imaging findings with the on-call vascular surgery midlevel provider, Heena Arias PA-C, and at this time recommendation was made to place the patient on heparin drip.following our conversation, she is not considered to be an ideal surgical candidate and likely does not have any surgical options available to her should they be required given the extent of her disease. I discussed all of this with the patient, she is in agreement for admission, I also did contact the patient's son, Adolph, by phone and he is updated and aware of the situation. Case was then discussed with the on-call hospitalist for [facility] and the patient was admitted in stable condition. Consultants/Discussions held with other healthcare providers: -Hospitalist, Dr. Evans Disposition discussion held by myself with: -Patient and son over the phone Diagnosis: 1. Right foot cellulitis, acute 2. Peripheral artery disease, chronic, right lower extremity Disposition: Admission Adam Pineda DO Emergency Medicine Past Med/Surg History Problem List (Updated 12/01/24 @ 18:19 by Adam Pineda DO) Cellulitis of foot (Acute) PAD (peripheral artery disease) (Acute) Peripheral vascular disease of lower extremity Cellulitis of right foot Osteoarthritis of right knee Osteoporosis Medicare annual wellness visit, subsequent Positional vertigo Dislocation of left temporomandibular joint Temporomandibular joint dislocation, recurrent Anemia LBBB (left bundle branch block) Vulvar carcinoma (Chronic 01/19/20) Medical History Mild cognitive impairment Hypertension CKD (chronic kidney disease) stage 3, GFR 30-59 ml/min Recurrent dislocation of left temporomandibular joint Acute kidney injury Encounter for pre-operative examination DVT prophylaxis History of chemotherapy march-april 2020 vulvar cancer> jessie Dislocated mandible Glaucoma Hiatal hernia Hyperlipidemia Hypertension Surgical History History of mandibular surgery Hx of bilateral cataract extraction H/O colonoscopy (~2017) S/P iridectomy History of hysterectomy History of hernia repair History of arthroscopy of right knee History of bladder repair surgery Family History Mother Stroke Father Stroke Son No problems noted. Son No problems noted. Family/Other Hypertension Denies family history of Ovarian cancer Prostate cancer Myocardial infarction Breast cancer Colorectal cancer Social History Smoking Status: Never smoker Second Hand Exposure: No (parents smoked several yrs ago); Do You Dip or Chew Tobacco: No; Hx Alcohol Use: Yes Alcohol type: wine Hx Substance Use: No Preferred Language: Uzbek Communication Ability: Effective Visual Impairment: Limited Hearing Ability: Normal Musical Performer Required: No Beliefs That Will Affect Care: None marital status: / Current Living Situation: Alone current occupational status: retired How many Children do You have: 2 Feels Safe at Home: Yes Childhood Exposure to Second-Hand Smoke: No Diet: regular caffeine: Yes (2 cups a day) Dental Care, Regularly: Yes Physical Activity Frequency: Daily Physical Activity Frequency Comment: walks in apartment hallway Seatbelt Use: always Sunscreen Use: No Assistive Devices: Walker Allergies Allergies Allergy/AdvReac Type Severity Reaction Status Date / Time Penicillins Allergy Intermediate Swelling Verified 09/12/24 13:46 of Lip/Tongue/Throat Home Meds Home Medications Medication Instructions Recorded Confirmed cholecalciferol (vitamin D3) 50 2,000 unit PO DAILY 01/04/24 09/12/24 mcg (2,000 unit) capsule (Vitamin D3) losartan 25 mg tablet 25 mg PO DAILY 01/04/24 09/12/24 vit C 250 mg-vit E 90 mg-zinc 40 1 tab PO DAILY 01/04/24 09/12/24 mg-copper 1 [id number] capsule (PreserVision AREDS-2) acetaminophen 325 mg tablet 650 mg PO BID 04/12/24 09/12/24 (Tylenol) carboxymethylcellulose sodium 0.5 1 drp ophthalmic (eye) QID 04/12/24 09/12/24 % eye drops in a dropperette (Refresh Plus) diclofenac sodium 1 % topical gel 2 g topical QID 04/12/24 09/12/24 docusate sodium 100 mg capsule 100 mg PO DAILY 04/12/24 09/12/24 (Colace) Results & Data (ED) Vital Signs Vital Signs - 24 hr 12/01/24 11:43 12/01/24 11:43 12/01/24 12:12 Temperature 36.6 C Temperature Source Oral Pulse Rate 72 81 Pulse Rate [Apical] 72 Pulse Rate from SpO2 Sensor Pulse Rhythm Regular Pulse Rhythm [Apical] Regular Pulse Strength Normal Pulse Strength [Apical] Normal Respiratory Rate 15 15 Respiratory Effort / Characteristics Non-Labored Spontaneous Non-Labored Spontaneous Respiratory Depth Normal Normal Respiratory Pattern Regular Regular Blood Pressure 130/76 Blood Pressure [Left Arm] 130/72 Blood Pressure Mean 94 Blood Pressure Mean [Left Arm] 91 Blood Pressure Position Lying Blood Pressure Position [Left Arm] Pulse Oximetry 97 97 Oxygen Delivery Method Room Air Room Air Sepsis Recent Fever Within 48 Hours No Sepsis New/Unexplained Change in Mental Status No Sepsis Action Taken by Nursing No Action Required 12/01/24 12:15 12/01/24 12:30 12/01/24 14:39 Temperature Temperature Source Pulse Rate 86 79 83 Pulse Rate [Apical] Pulse Rate from SpO2 Sensor 76 85 Pulse Rhythm Pulse Rhythm [Apical] Pulse Strength Pulse Strength [Apical] Respiratory Rate 19 22 Respiratory Effort / Characteristics Respiratory Depth Respiratory Pattern Blood Pressure 138/71 159/93 H Blood Pressure [Left Arm] Blood Pressure Mean 93 115 Blood Pressure Mean [Left Arm] Blood Pressure Position Blood Pressure Position [Left Arm] Pulse Oximetry 98 96 94 Oxygen Delivery Method Room Air Sepsis Recent Fever Within 48 Hours Sepsis New/Unexplained Change in Mental Status Sepsis Action Taken by Nursing 12/01/24 15:00 12/01/24 15:00 Temperature Temperature Source Pulse Rate 81 Pulse Rate [Apical] 95 H Pulse Rate from SpO2 Sensor Pulse Rhythm Pulse Rhythm [Apical] Regular Pulse Strength Pulse Strength [Apical] Normal Respiratory Rate 20 22 Respiratory Effort / Characteristics Non-Labored Spontaneous Respiratory Depth Normal Respiratory Pattern Regular Blood Pressure 148/91 H Blood Pressure [Left Arm] 148/91 H Blood Pressure Mean 106 Blood Pressure Mean [Left Arm] 110 Blood Pressure Position Blood Pressure Position [Left Arm] Sitting Pulse Oximetry 95 95 Oxygen Delivery Method Room Air Sepsis Recent Fever Within 48 Hours Sepsis New/Unexplained Change in Mental Status Sepsis Action Taken by Nursing Laboratory Data 12/01/24 11:40 12/01/24 11:40 Lab Results 12/01/24 12/01/24 12/01/24 Range/Units 11:40 12:50 14:36 WBC 10.43 (4.8-10.8) K/ul RBC 4.19 L (4.20-5.40) M/uL Hgb 11.2 L (12.0-16.0) g/dl Hct 35.5 L (37.0-47.0) % MCV 84.7 (80.0-100.0) fL MCH 26.7 (25.0-34.0) pg MCHC 31.5 L (32.0-36.0) g/dL RDW Std Deviation 49.5 H (36.4-46.3) fL RDW Coeff of Joe 15.9 H (11.5-14.5) % Plt Count 346 (130-400) K/uL MPV 11.6 (9.4-12.4) fL Immature Gran % (Auto) 0.3 % Neut % (Auto) 72.4 % Lymph % (Auto) 13.8 % [place] % (Auto) 11.6 % Eos % (Auto) 1.3 % Baso % (Auto) 0.6 % Neut # (Auto) 7.55 H (1.40-6.50) K/uL Lymph # (Auto) 1.44 (1.20-3.40) K/uL [place] # (Auto) 1.21 H (0.11-0.59) K/uL Eos # (Auto) 0.14 (0.00-0.50) K/uL Baso # (Auto) 0.06 (0.00-0.20) K/uL Immature Gran # (Auto) 0.03 (0.01-0.20) K/uL PT 11.1 (9.0-12.0) Seconds INR 1.0 (0.9-1.1) APTT 28 (21-31) Seconds PTT Ratio 1.0 Sodium 136 (136-145) mmol/L Potassium 4.5 (3.5-5.1) mmol/L Chloride 103 (98-107) mmol/L Carbon Dioxide 26 (21-32) mmol/L Anion Gap 7 (3-11) BUN 27 H (6-23) mg/dl Creatinine 1.08 (0.6-1.2) mg/dl Est Cr Clr Drug Dosing 32.3 ml/min eGFR 50.02 BUN/Creatinine Ratio 25.0 H (10-20) Glucose 82 (70-99(Fasting)) mg/dl Calcium 9.5 (8.6-10.3) mg/dl Total Bilirubin 0.4 (0.2-1.0) mg/dl AST 12 L (13-39) U/L ALT 7 (7-52) U/L Alkaline Phosphatase 129 H (34-104) U/L Total Protein 7.2 (6.0-8.3) gm/dl Albumin 3.9 (3.4-5.0) gm/dl Globulin 3.3 (2.5-4.0) gm/dl Albumin/Globulin Ratio 1.2 (0.9-2) Procalcitonin Cancelled 0.03 Administered Medications Heparin Sodium/Dextrose (Heparin 97354 Unit/500 Ml) 25,000 units in 500 mls @ 21 mls/hr IV .[id number] [facility]; Protocol Stop: 12/31/24 14:44 Last Admin: 12/01/24 14:48 Dose: 1,050 units/hr, 21 mls/hr Documented By: SUZANNE Co-signed By: Discontinued Medications Heparin Sodium/Dextrose (Heparin Iv Adult Wt-Based Standard *No* Initial Bolus Protocol) 1 each IV ONE STA; Protocol Stop: 12/01/24 14:27 Last Admin: 12/01/24 15:12 Dose: 1 each Documented By: USZANNE Sodium Chloride (Nss) 500 mls @ 999 mls/hr IV .Q31M ONE Stop: 12/01/24 12:46 Last Infusion: 12/01/24 13:05 Dose: Infused Documented By: Admin: 12/01/24 12:21 Dose: 999 mls/hr Documented By: BRYAN Vancomycin HCl 1,250 mg/ (Sodium Chloride) 525 mls @ 200 mls/hr IV NOW ONE Stop: 12/01/24 16:50 Last Infusion: 12/01/24 18:02 Dose: Infused Documented By: Admin: 12/01/24 14:41 Dose: 200 mls/hr Documented By: SUZANNE Cefepime HCl (Maxipime 2000mg) 1,000 mg in 10 mls @ 5 mls/min IV NOW STA; Protocol Stop: 12/01/24 14:14 Last Admin: 12/01/24 14:41 Dose: 5 mls/min Documented By: SUZANNE Ioversol (Optiray 320 125ml) 119 ml IV ONCE ONE Stop: 12/01/24 13:14 Last Admin: 12/01/24 13:13 Dose: 119 ml Documented By: MELISA Imaging Data Radiologist's Impression: Lower Extremity CTA 12/01/24 12:15 CT angio LE RT w inc wo if don, CT angio foot RT wo/w con CLINICAL HISTORY: R foot erythema, sluggish DP pulse TECHNIQUE: CT angiography of the right lower extremity and right foot after 120 cc Optiray IV. Sagittal and coronal reformats were obtained. DLP is 1294. COMPARISON STUDY: None FINDINGS: Vascular findings: There is diffuse atherosclerotic mixed calcified and noncalcified plaque. No significant narrowing or occlusion seen at the visualized portion of the right external iliac artery. There is mild focal narrowing distally at the right common femoral artery. Deep femoral artery is patent. There is multifocal narrowing at the right superficial femoral artery, severe at the mid aspect. There is severe focal narrowing/near occlusion at the mid aspect of the popliteal artery. The posterior tibial artery occludes proximally. The anterior tibial artery occludes proximally. The peroneal artery occludes distally. There is distal reconstitution by collaterals of a tiny dorsalis pedis artery and tiny posterior tibial artery. No fracture or dislocation or evidence of osteomyelitis seen at the visualized osseous structures. No soft tissue hematoma or abscess seen at the foot. IMPRESSION: Abnormal CTA of the right lower extremity as described. ACT 112: Negative or not required by law. Electronically signed by: Sal Ziegler M.D. 12/01/2024 1:43 PM Lower Extremity CTA 12/01/24 12:16 CT angio LE RT w inc wo if don, CT angio foot RT wo/w con CLINICAL HISTORY: R foot erythema, sluggish DP pulse TECHNIQUE: CT angiography of the right lower extremity and right foot after 120 cc Optiray IV. Sagittal and coronal reformats were obtained. DLP is 1294. COMPARISON STUDY: None FINDINGS: Vascular findings: There is diffuse atherosclerotic mixed calcified and noncalcified plaque. No significant narrowing or occlusion seen at the visualized portion of the right external iliac artery. There is mild focal narrowing distally at the right common femoral artery. Deep femoral artery is patent. There is multifocal narrowing at the right superficial femoral artery, severe at the mid aspect. There is severe focal narrowing/near occlusion at the mid aspect of the popliteal artery. The posterior tibial artery occludes proximally. The anterior tibial artery occludes proximally. The peroneal artery occludes distally. There is distal reconstitution by collaterals of a tiny dorsalis pedis artery and tiny posterior tibial artery. No fracture or dislocation or evidence of osteomyelitis seen at the visualized osseous structures. No soft tissue hematoma or abscess seen at the foot. IMPRESSION: Abnormal CTA of the right lower extremity as described. ACT 112: Negative or not required by law. Electronically signed by: Sal Ziegler M.D. 12/01/2024 1:43 PM Discharge Plan Visit Data Chief Complaint: Infection, Wound Stated Complaint: R foot wound, poss decreased blood flow ED Provider: Adam Pineda Discharge Problem: PAD (peripheral artery disease), Cellulitis of foot Patient Disposition: Admitted As Inpatient Discharge Instructions Interventions: ED Discharge Assessment Last Done: 12/01/24 16:51
[2024-12-01] MEDS: SODIUM CHLORIDE 0.9% 500 ML IV ONE (12:21)
[2024-12-01 12:36] LABS: Basophils # (auto) 0.06 K/uL (0.00-0.20); Basophils % (auto) 0.6 %; Eosinophils # (auto) 0.14 K/uL (0.00-0.50); Eosinophils % (auto) 1.3 %; Hematocrit (blood only) 35.5 % (37.0-47.0); Hemoglobin 11.2 g/dl (12.0-16.0); Immature Granulocytes # (auto) 0.03 K/uL (0.01-0.20); Immature Granulocytes % (auto) 0.3 %; Lymphocytes # (auto) 1.44 K/uL (1.20-3.40); Lymphocytes % (auto) 13.8 %; Mean Corpuscular Hemoglobin 26.7 pg (25.0-34.0); Mean Corpuscular Hgb Conc 31.5 g/dL (32.0-36.0); Mean Corpuscular Volume 84.7 fL (80.0-100.0); Mean Platelet Volume 11.6 fL (9.4-12.4); Monocytes # (auto) 1.21 K/uL (0.11-0.59); Monocytes % (auto) 11.6 %; Neutrophils # (auto) 7.55 K/uL (1.40-6.50); Neutrophils % (auto) 72.4 %; Platelet Count 346 K/uL (130-400); RDW Coefficient of Variation 15.9 % (11.5-14.5); RDW Standard Deviation 49.5 fL (36.4-46.3); Red Blood Count 4.19 M/uL (4.20-5.40); White Blood Count 10.43 K/ul (4.8-10.8)
[2024-12-01 12:54] LABS: Albumin Globulin Ratio 1.2 (0.9-2); Albumin Level 3.9 gm/dl (3.4-5.0); Bilirubin,Total 0.4 mg/dl (0.2-1.0); Calcium 9.5 mg/dl (8.6-10.3); Creatinine Clr Calc Pharmacy 32.3 ml/min; Globulin 3.3 gm/dl (2.5-4.0); Potassium 4.5 mmol/L (3.5-5.1); Total Protein 7.2 gm/dl (6.0-8.3)
[2024-12-01 13:00] LABS: Prothrombin Time 11.1 Seconds (9.0-12.0)
[2024-12-01] MEDS: OPTIRAY 320 125ml IV ONE (13:13)
--- NOTE | 2024-12-01 13:44 | CT Scan Report ---
CT angio LE RT w inc wo if don, CT angio foot RT wo/w con CLINICAL HISTORY: R foot erythema, sluggish DP pulse TECHNIQUE: CT angiography of the right lower extremity and right foot after 120 cc Optiray IV. Sagitt al and coronal reformats were obtained. DLP is 1294. COMPARISON STUDY: None FINDINGS: Vascular findings: There is diffuse atherosclerotic mixed calcified and noncalcified plaque. No signi ficant narrowing or occlusion seen at the visualized portion of the right external iliac artery. Ther e is mild focal narrowing distally at the right common femoral artery. Deep femoral artery is patent. There is multifocal narrowing at the right superficial femoral artery, severe at the mid aspect. The re is severe focal narrowing/near occlusion at the mid aspect of the popliteal artery. The posterior tibial artery occludes proximally. The anterior tibial artery occludes proximally. The peroneal arter y occludes distally. There is distal reconstitution by collaterals of a tiny dorsalis pedis artery an d tiny posterior tibial artery. No fracture or dislocation or evidence of osteomyelitis seen at the v isualized osseous structures. No soft tissue hematoma or abscess seen at the foot. IMPRESSION: Abnormal CTA of the right lower extremity as described. ACT 112: Negative or not required by law. Electronically signed by: Sal Ziegler M.D. 12/01/2024 1:43 PM
[2024-12-01] MEDS ORDERED: VANCOMYCIN CONSULT ACTIVE PRN ×2 (14:13→18:00)
[2024-12-01] MEDS: CEFEPIME 1000MG 1,000 MG/10 ML SYR IV STA (14:41)
[2024-12-01] MEDS: VANCOMYCIN HCL 1,250 MG in SODIUM CHLORIDE 0.9% 500 ML IV ONE (14:41)
[2024-12-01] MEDS: HEPARIN 25000 UNIT/500 ML D5W 25,000 UNITS/500 ML BAG IV SCH (14:48)
[2024-12-01] MEDS: Heparin IV Adult Wt-Based Standard *NO* INITIAL Bolus Protocol IV STA (15:12)
[2024-12-01 15:41] LABS: Partial Thromboplastin Time 28 Seconds (21-31)
--- NOTE | 2024-12-01 17:15 | History & Physical Report ---
Date of Service December 01, 2024 Assessment & Plan (1) Cellulitis of right foot: Plan: The right foot appears red and edematous. It is painful and tender to touch No signs of sepsis There is concern for peripheral vascular disease There are some interdigital fissures that could have been the port of entry of bacteria Patient was started on vancomycin and cefepime in the emergency room. Will continue Will ask the nurse to prabha the margins for comparison (2) Peripheral vascular disease of lower extremity: Plan: CTA with lower extremity showed vascular disease Vascular surgery has been consulted ED spoke to vascular surgery. They reviewed the CT a images and recommended anticoagulation and antibiotics. No acute surgery anticipated Awaiting official vascular surgery input The patient was never a smoker Not a known diabetic Unclear etiology of vasculopathy Check A1c Check fasting lipid panel (3) Hypertension: Plan: Continue losartan (4) CKD (chronic kidney disease) stage 3, GFR 30-59 ml/min: Plan: Monitor BMP Avoid nephrotoxic medications Stable now (5) Hyperlipidemia: Plan: Patient has a documented history of hyperlipidemia but does not seem to be on any statin Check fasting lipid panel Plan DVT prophylaxis: On heparin drip CODE STATUS: DNR/DNI Spoke to the son at the bedside. History of Present Illness Chief Complaint: Right foot pain and swelling Primary Care Provider: Tanya Yu MD This is an 84-year-old [place] woman with benign essential hypertension and hyperlipidemia who was sent from [facility] due to right foot pain, redness and swelling. The patient stated that over the past 2 weeks she had noticed some increasing redness and pain in her right foot. There are some fissures in between her toes for which they had been applying Vaseline in between her toes. This had been getting worse and she was evaluated by a doctor at the nursing facility who decided that she needed to come to the emergency room. There was also some concern about nondetection of pulse in the right foot at the nursing facility. She also says that her left foot has a same problem with pain and redness. However the right foot is more painful. The patient denied any fever, chills. In the emergency room, she had some screening tests done that were fairly unremarkable. A CT angio of the lower extremity was completed that showed some findings concerning for peripheral vascular disease with collaterals. The ER physician spoke to the vascular surgeon who reviewed the images and recommended IV antibiotics, IV heparin and did not think that she needed immediate surgery. She is thus being admitted to the medical service for antibiotics and anticoagulation. Past medical history 1. UTI and rhabdomyolysis in December 2023 2. CKD stage III 3. Mild cognitive impairment 4. Benign essential hypertension 5. Hyperlipidemia 6. Vulvar squamous cell carcinoma. In remission. Allergies Allergy/AdvReac Type Severity Reaction Status Date / Time Penicillins Allergy Intermediate Swelling Verified 09/12/24 13:46 of Lip/Tongue/Throat Home Medications Medication Instructions Recorded Confirmed Type cholecalciferol (vitamin D3) 50 2,000 unit PO DAILY 01/04/24 09/12/24 History mcg (2,000 unit) capsule (Vitamin D3) losartan 25 mg tablet 25 mg PO DAILY 01/04/24 09/12/24 History vit C 250 mg-vit E 90 mg-zinc 40 1 tab PO DAILY 01/04/24 09/12/24 History mg-copper 1 [id number] capsule (PreserVision AREDS-2) acetaminophen 325 mg tablet 650 mg PO BID 04/12/24 09/12/24 History (Tylenol) carboxymethylcellulose sodium 0.5 1 drp ophthalmic (eye) QID 04/12/24 09/12/24 History % eye drops in a dropperette (Refresh Plus) diclofenac sodium 1 % topical gel 2 g topical QID 04/12/24 09/12/24 History docusate sodium 100 mg capsule 100 mg PO DAILY 04/12/24 09/12/24 History (Colace) Past Med/Surg History Problem List (Updated 12/01/24 @ 17:07 by Meredith Evans MD) Peripheral vascular disease of lower extremity Cellulitis of right foot Osteoarthritis of right knee Osteoporosis Medicare annual wellness visit, subsequent Positional vertigo Dislocation of left temporomandibular joint Temporomandibular joint dislocation, recurrent Anemia LBBB (left bundle branch block) Vulvar carcinoma (Chronic 01/19/20) Medical History Mild cognitive impairment Hypertension CKD (chronic kidney disease) stage 3, GFR 30-59 ml/min Recurrent dislocation of left temporomandibular joint Acute kidney injury Encounter for pre-operative examination DVT prophylaxis History of chemotherapy march-april 2020 vulvar cancer> jessie Dislocated mandible Glaucoma Hiatal hernia Hyperlipidemia Hypertension Surgical History History of mandibular surgery Hx of bilateral cataract extraction H/O colonoscopy (~2018) S/P iridectomy History of hysterectomy History of hernia repair History of arthroscopy of right knee History of bladder repair surgery Family History Mother Stroke Father Stroke Son No problems noted. Son No problems noted. Family/Other Hypertension Denies family history of Ovarian cancer Prostate cancer Myocardial infarction Breast cancer Colorectal cancer Social History Smoking Status: Never smoker Second Hand Exposure: No (parents smoked several yrs ago); Do You Dip or Chew Tobacco: No; Hx Alcohol Use: Yes Alcohol type: wine Hx Substance Use: No Preferred Language: [place]uneian Communication Ability: Effective Visual Impairment: Limited Hearing Ability: Normal Marketing Research Analyst Required: No Beliefs That Will Affect Care: None marital status: / Current Living Situation: Alone current occupational status: retired How many Children do You have: 2 Feels Safe at Home: Yes Childhood Exposure to Second-Hand Smoke: No Diet: regular caffeine: Yes (2 cups a day) Dental Care, Regularly: Yes Physical Activity Frequency: Daily Physical Activity Frequency Comment: walks in apartment hallway Seatbelt Use: always Sunscreen Use: No Assistive Devices: Walker Review of Systems Review of Systems: All systems reviewed & are unremarkable except as noted in Subjective Physical Exam Physical Exam: General appearance: Awake, conversant, able to answer questions appropriately. AOx3. Neck: No masses, no thyromegaly Respiration: Clear to auscultation bilaterally. Normal effort Cardiovascular: S1-S2/regular rate and rhythm. No murmur, rubs or gallop. No edema. Abdomen: Soft, nontender, nondistended. No hepatosplenomegaly Musculoskeletal: No clubbing, no cyanosis, normal range of motion. Right foot is red and tender. Fissures noted in the interdigital spaces. There is cellulitis involving the distal half of the dorsum of the foot. Skin: No rashes, no nodules Neuro exam: Cranial nerves intact, sensation grossly intact Psychiatric: Patient has good judgment and insight. AOx3. Mood and affect appear normal Lymphatics: No cervical or axillary lymphadenopathy noted Results & Data Results & Data Vital Signs (Past 12 Hours) Vital Signs Temp Pulse Pulse Resp BP BP Pulse Ox 12/01/24 16:30 84 19 145/84 H 93 12/01/24 16:00 83 23 138/83 98 12/01/24 15:30 86 23 146/95 H 96 12/01/24 15:00 81 22 148/91 H 95 12/01/24 15:00 95 H 20 148/91 H 95 12/01/24 14:39 83 22 159/93 H 94 12/01/24 12:30 79 19 138/71 96 12/01/24 12:15 86 98 12/01/24 12:12 81 12/01/24 11:43 72 15 130/72 97 12/01/24 11:43 36.6 C 72 15 130/76 97 O2 Del Method 12/01/24 16:30 12/01/24 16:00 12/01/24 15:30 12/01/24 15:00 12/01/24 15:00 Room Air 12/01/24 14:39 12/01/24 12:30 12/01/24 12:15 Room Air 12/01/24 12:12 12/01/24 11:43 Room Air 12/01/24 11:43 Room Air Laboratory Results Abnormal lab results 12/01/24 Range/Units 11:40 RBC 4.19 L (4.20-5.40) M/uL Hgb 11.2 L (12.0-16.0) g/dl Hct 35.5 L (37.0-47.0) % MCHC 31.5 L (32.0-36.0) g/dL RDW Std Deviation 49.5 H (36.4-46.3) fL RDW Coeff of Joe 15.9 H (11.5-14.5) % Neut # (Auto) 7.55 H (1.40-6.50) K/uL [place] # (Auto) 1.21 H (0.11-0.59) K/uL BUN 27 H (6-23) mg/dl BUN/Creatinine Ratio 25.0 H (10-20) AST 12 L (13-39) U/L Alkaline Phosphatase 129 H (34-104) U/L Diagnostic Findings Lower Extremity CTA 12/01/24 12:15 CT angio LE RT w inc wo if don, CT angio foot RT wo/w con CLINICAL HISTORY: R foot erythema, sluggish DP pulse TECHNIQUE: CT angiography of the right lower extremity and right foot after 120 cc Optiray IV. Sagittal and coronal reformats were obtained. DLP is 1294. COMPARISON STUDY: None FINDINGS: Vascular findings: There is diffuse atherosclerotic mixed calcified and noncalcified plaque. No significant narrowing or occlusion seen at the visualized portion of the right external iliac artery. There is mild focal narrowing distally at the right common femoral artery. Deep femoral artery is patent. There is multifocal narrowing at the right superficial femoral artery, severe at the mid aspect. There is severe focal narrowing/near occlusion at the mid aspect of the popliteal artery. The posterior tibial artery occludes proximally. The anterior tibial artery occludes proximally. The peroneal artery occludes distally. There is distal reconstitution by collaterals of a tiny dorsalis pedis artery and tiny posterior tibial artery. No fracture or dislocation or evidence of osteomyelitis seen at the visualized osseous structures. No soft tissue hematoma or abscess seen at the foot. IMPRESSION: Abnormal CTA of the right lower extremity as described. ACT 112: Negative or not required by law. Electronically signed by: Sal Ziegler M.D. 12/01/2024 1:43 PM Lower Extremity CTA 12/01/24 12:16 CT angio LE RT w inc wo if don, CT angio foot RT wo/w con CLINICAL HISTORY: R foot erythema, sluggish DP pulse TECHNIQUE: CT angiography of the right lower extremity and right foot after 120 cc Optiray IV. Sagittal and coronal reformats were obtained. DLP is 1294. COMPARISON STUDY: None FINDINGS: Vascular findings: There is diffuse atherosclerotic mixed calcified and noncalcified plaque. No significant narrowing or occlusion seen at the visualized portion of the right external iliac artery. There is mild focal narrowing distally at the right common femoral artery. Deep femoral artery is patent. There is multifocal narrowing at the right superficial femoral artery, severe at the mid aspect. There is severe focal narrowing/near occlusion at the mid aspect of the popliteal artery. The posterior tibial artery occludes proximally. The anterior tibial artery occludes proximally. The peroneal artery occludes distally. There is distal reconstitution by collaterals of a tiny dorsalis pedis artery and tiny posterior tibial artery. No fracture or dislocation or evidence of osteomyelitis seen at the visualized osseous structures. No soft tissue hematoma or abscess seen at the foot. IMPRESSION: Abnormal CTA of the right lower extremity as described. ACT 112: Negative or not required by law. Electronically signed by: Sal Ziegler M.D. 12/01/2024 1:43 PM Code Status & VTE Plan VTE Prophylaxis Plan VTE Prophylaxis will be ordered: Yes PG Care Time/CCT Total # of Minutes Spent Total Time Spent with Patient: Total time spent is greater than 50% in coordination of care (as documented) at patient's floor/unit and/or counseling patient: Coding Level of Care Code 33644 INT INP/OBS CARE 2MIN Diagnoses Cellulitis of right foot L03.115 Peripheral vascular disease of lower extremity I73.9 Hypertension I10 CKD (chronic kidney disease) stage 3, GFR 30-59 ml/min N18.30 Hyperlipidemia E78.5
[2024-12-01] MEDS ORDERED: VANCOMYCIN HCL 1,250 MG in SODIUM CHLORIDE 0.9% 500 ML IV ONE (18:00)
[2024-12-01] MEDS ORDERED: ONDANSETRON INJ 2 MG/ML 2 ML VIAL IV PRN (18:00)
[2024-12-01] MEDS ORDERED: POLYETHYLENE (MIRALAX) 17 GM PACK PO PRN (18:00)
[2024-12-01] MEDS: CEFEPIME 1000MG 1,000 MG/10 ML SYR IV ONE (20:14)
[2024-12-01 21:45] LABS: ANTI-Xa, UFH(UnfractionatedHep 0.33 IU/ml (0.3-0.7)
[2024-12-01] MEDS: VANCOMYCIN HCL 1,000 MG/270 ML BAG IV SCH (23:50)
[2024-12-02] MEDS: CEFEPIME 2000MG 2,000 MG/20 ML SYR IV SCH (05:26)
[2024-12-02] MEDS: HEPARIN 25000 UNIT/500 ML D5W 25,000 UNITS/500 ML BAG IV SCH (07:18)
[2024-12-02] MEDS: Heparin IV Adult Wt-Based Standard *NO* INITIAL Bolus Protocol IV STA (07:19)
[2024-12-02 08:13] LABS: Hematocrit (blood only) 34.9 % (37.0-47.0); Hemoglobin 11.3 g/dl (12.0-16.0); Mean Corpuscular Hgb Conc 32.4 g/dL (32.0-36.0); Mean Corpuscular Volume 83.5 fL (80.0-100.0); Mean Platelet Volume 11.1 fL (9.4-12.4); Platelet Count 336 K/uL (130-400); RDW Coefficient of Variation 15.9 % (11.5-14.5); RDW Standard Deviation 49.1 fL (36.4-46.3); Red Blood Count 4.18 M/uL (4.20-5.40); White Blood Count 12.07 K/ul (4.8-10.8)
[2024-12-02 08:38] LABS: BUN Creatinine Ratio 18.8 (10-20); Chol HDL Ratio 5.1 (0-5); Creatinine Clr Calc Pharmacy 34.5 ml/min; Potassium 4.2 mmol/L (3.5-5.1)
[2024-12-02 08:47] LABS: ANTI-Xa, UFH(UnfractionatedHep 0.49 IU/ml (0.3-0.7)
--- NOTE | 2024-12-02 09:35 | Pharmacy Report ---
Pharmacy PK ABX Note - Date of Service December 02, 2024 - Assessment and Plan Assessment 84 year old F receiving vancomycin and cefepime for treatment of cellulitis. Blood cultures pending. Renal function stable. Day #2 of antimicrobial therapy. Plan Vancomycin * Loading dose: 1250 mg IV x 1 * Maintenance dose: 1000 mg IV every 24 hours * Regimen is predicted to achieve target AUC/ALMA DELIA of 400-600 mg/L.hr * Will obtain a level after 48h of therapy if vancomycin continued, or sooner if clinically indicated Pharmacy will continue to follow and will adjust dose/frequency as necessary. Thank you. Pharmacy has transitioned to AUC monitoring for vancomycin. AUC/ALMA DELIA is the preferred PK/PD target and is associated with decreased risk of nephrotoxicity compared to traditional trough targets.
[2024-12-02 12:24] LABS: Appearance Urine Turbid (Clear); Bacteria Urine Automated None Seen (None Seen); Bilirubin Urine Negative (Negative); Blood Urine 3+ (Negative); Cast Urine Automated 0-2 /lpf (0-2); Color Urine Red; Epithelial Cell Urine Auto 0-2 /hpf (0-2); Glucose Urine UA Negative (Negative); Ketones Urine Negative (Negative); Leukocyte Esterase Urine 1+ (Negative); Nitrite Urine Negative (Negative); Protein Urine 2+ (Negative); RBC Urine Automated >20 /hpf (0-2); Specific Gravity Urine 1.022 (1.000-1.030); Urobilinogen Urine Negative (Negative)
--- NOTE | 2024-12-02 12:37 | Hospitalist Progress Note ---
Date of Service December 02, 2024 Assessment & Plan (1) Cellulitis of right foot: Plan: Improving with IV vancomycin and cefepime. Continue No signs of sepsis There is concern for peripheral vascular disease There are some interdigital fissures that could have been the port of entry of bacteria (2) Peripheral vascular disease of lower extremity: Plan: CTA with lower extremity showed vascular disease Vascular surgery has been consulted ED spoke to vascular surgery. They reviewed the CT a images and recommended anticoagulation and antibiotics. No acute surgery anticipated Awaiting official vascular surgery input The patient was never a smoker Not a known diabetic Unclear etiology of vasculopathy Check A1c, pending Reviewed fasting lipid panel (3) Hypertension: Plan: Continue losartan (4) CKD (chronic kidney disease) stage 3, GFR 30-59 ml/min: Plan: Monitor BMP Avoid nephrotoxic medications Stable now (5) Hyperlipidemia: Plan: Patient has a documented history of hyperlipidemia but does not seem to be on any statin Check fasting lipid panel (6) Hematuria: Plan: The nurse notified me of pink urine. Patient told the nurse that she has pink urine off-and-on. Of note, the patient has a history of a vulvar carcinoma Urinalysis showed WBCs and RBCs Urine culture pending Patient is on heparin drip Asked the nurse to monitor. If hematuria gets worse, may need to hold heparin drip Plan DVT prophylaxis: On heparin drip CODE STATUS: DNR/DNI Spoke to the son at the bedside on admission 12/01. Admission and Anticipated Discharge Date Admission Date: December 01, 2024 Subjective Patient was seen and examined at 10:45 AM. She denies chest pain or shortness of breath. She says that her feet still hurt but are not better than yesterday. Review of Systems Review of Systems: All systems reviewed & are unremarkable except as noted in Subjective Physical Exam Physical Exam: General: Awake, conversant Heart: S1, S2/regular rate and rhythm, no murmur rubs or gallops Lungs: Clear to auscultation bilaterally. Normal effort Abdomen: Soft/nontender/nondistended. No hepatosplenomegaly Extremities: No clubbing/cyanosis. Right foot cellulitis is improving. Fading in color, less swollen Behavior: Appropriate, cooperative Results & Data Results & Data Vital Signs (Past 12 Hours) Vital Signs Temp Pulse Pulse Resp BP Pulse Ox O2 Del Method 12/02/24 09:51 Room Air 12/02/24 07:48 36.9 C 90 18 129/77 91 Room Air 12/02/24 07:14 84 12/02/24 03:14 36.8 C 85 18 145/75 H 94 Room Air Laboratory Results Abnormal lab results 12/01/24 12/02/24 12/02/24 Range/Units 11:40 07:51 Unknown WBC 12.07 H (4.8-10.8) K/ul RBC 4.18 L (4.20-5.40) M/uL Hgb 11.3 L (12.0-16.0) g/dl Hct 34.9 L (37.0-47.0) % RDW Std Deviation 49.1 H (36.4-46.3) fL RDW Coeff of Joe 15.9 H (11.5-14.5) % BUN 27 H (6-23) mg/dl BUN/Creatinine Ratio 25.0 H (10-20) AST 12 L (13-39) U/L Alkaline Phosphatase 129 H (34-104) U/L Cholesterol/HDL Ratio 5.1 H (0-5) Urine Appearance Turbid A (Clear) Urine Protein 2+ H (Negative) Urine Blood 3+ H (Negative) Ur Leukocyte Esterase 1+ H (Negative) Urine WBC (Auto) 11-20 H (0-5) /hpf Urine RBC (Auto) >20 H (0-2) /hpf Diagnostic Findings Lower Extremity CTA 12/01/24 12:15 CT angio LE RT w inc wo if don, CT angio foot RT wo/w con CLINICAL HISTORY: R foot erythema, sluggish DP pulse TECHNIQUE: CT angiography of the right lower extremity and right foot after 120 cc Optiray IV. Sagittal and coronal reformats were obtained. DLP is 1294. COMPARISON STUDY: None FINDINGS: Vascular findings: There is diffuse atherosclerotic mixed calcified and noncalcified plaque. No significant narrowing or occlusion seen at the visualized portion of the right external iliac artery. There is mild focal narrowing distally at the right common femoral artery. Deep femoral artery is patent. There is multifocal narrowing at the right superficial femoral artery, severe at the mid aspect. There is severe focal narrowing/near occlusion at the mid aspect of the popliteal artery. The posterior tibial artery occludes proximally. The anterior tibial artery occludes proximally. The peroneal artery occludes distally. There is distal reconstitution by collaterals of a tiny dorsalis pedis artery and tiny posterior tibial artery. No fracture or dislocation or evidence of osteomyelitis seen at the visualized osseous structures. No soft tissue hematoma or abscess seen at the foot. IMPRESSION: Abnormal CTA of the right lower extremity as described. ACT 112: Negative or not required by law. Electronically signed by: Sal Ziegler M.D. 12/01/2024 1:43 PM Lower Extremity CTA 12/01/24 12:16 CT angio LE RT w inc wo if don, CT angio foot RT wo/w con CLINICAL HISTORY: R foot erythema, sluggish DP pulse TECHNIQUE: CT angiography of the right lower extremity and right foot after 120 cc Optiray IV. Sagittal and coronal reformats were obtained. DLP is 1294. COMPARISON STUDY: None FINDINGS: Vascular findings: There is diffuse atherosclerotic mixed calcified and noncalcified plaque. No significant narrowing or occlusion seen at the visualized portion of the right external iliac artery. There is mild focal narrowing distally at the right common femoral artery. Deep femoral artery is patent. There is multifocal narrowing at the right superficial femoral artery, severe at the mid aspect. There is severe focal narrowing/near occlusion at the mid aspect of the popliteal artery. The posterior tibial artery occludes prox imally. The anterior tibial artery occludes proximally. The peroneal artery occludes distally. There is distal reconstitution by collaterals of a tiny dorsalis pedis artery and tiny posterior tibial artery. No fracture or dislocation or evidence of osteomyelitis seen at the visualized osseous structures. No soft tissue hematoma or abscess seen at the foot. IMPRESSION: Abnormal CTA of the right lower extremity as described. ACT 112: Negative or not required by law. Electronically signed by: Sal Ziegler M.D. 12/01/2024 1:43 PM PG Care Time/CCT Total # of Minutes Spent Total Time Spent with Patient: Total time spent is greater than 50% in coordination of care (as documented) at patient's floor/unit and/or counseling patient: Coding Level of Care Code 14120 SUB INP/OBS CARE 2/35MIN Diagnoses Cellulitis of right foot L03.115 Peripheral vascular disease of lower extremity I73.9 Hypertension I10 CKD (chronic kidney disease) stage 3, GFR 30-59 ml/min N18.30 Hyperlipidemia E78.5 Hematuria R31.9
[2024-12-02 22:34] LABS: Hematocrit (blood only) 32.7 % (37.0-47.0); Hemoglobin 10.2 g/dl (12.0-16.0)
[2024-12-02] MEDS: ACETAMINOPHEN 325 MG TAB PO PRN (22:54)
[2024-12-03 06:32] LABS: Hematocrit (blood only) 33.5 % (37.0-47.0); Hemoglobin 10.8 g/dl (12.0-16.0); Mean Corpuscular Hemoglobin 26.9 pg (25.0-34.0); Mean Corpuscular Hgb Conc 32.2 g/dL (32.0-36.0); Mean Corpuscular Volume 83.5 fL (80.0-100.0); Mean Platelet Volume 11.6 fL (9.4-12.4); Platelet Count 331 K/uL (130-400); RDW Coefficient of Variation 15.7 % (11.5-14.5); RDW Standard Deviation 47.8 fL (36.4-46.3); Red Blood Count 4.01 M/uL (4.20-5.40); White Blood Count 8.81 K/ul (4.8-10.8)
[2024-12-03 06:48] LABS: Creatinine Clr Calc Pharmacy 32.9 ml/min
[2024-12-03 06:58] LABS: ANTI-Xa, UFH(UnfractionatedHep < 0.10 IU/ml (0.3-0.7)
--- NOTE | 2024-12-03 13:14 | Hospitalist Progress Note ---
Date of Service December 03, 2024 Assessment & Plan (1) Cellulitis of right foot: Plan: Improving with IV vancomycin and cefepime. Continue No signs of sepsis There is concern for peripheral vascular disease There are some interdigital fissures that could have been the port of entry of bacteria (2) Peripheral vascular disease of lower extremity: Plan: CTA with lower extremity showed vascular disease Vascular surgery has been consulted ED spoke to vascular surgery. They reviewed the CT a images and recommended anticoagulation and antibiotics. No acute surgery anticipated Overnight, the patient started having hematuria and thus the heparin drip was held. I personally spoke to Dr. Up over the phone today informing him of the heparin drip being held. He is aware and will see the patient tomorrow. Awaiting official vascular surgery input The patient was never a smoker Not a known diabetic Unclear etiology of vasculopathy Check A1c, pending Reviewed fasting lipid panel (3) Hypertension: Plan: Continue losartan (4) CKD (chronic kidney disease) stage 3, GFR 30-59 ml/min: Plan: Monitor BMP Avoid nephrotoxic medications Stable now (5) Hyperlipidemia: Plan: Patient has a documented history of hyperlipidemia but does not seem to be on any statin Check fasting lipid panel (6) Hematuria: Plan: The patient started having hematuria on heparin drip. Overnight, she was passing clots. Urinalysis showed WBCs and RBCs Urine culture pending Patient is now off of heparin drip. Vascular surgery aware. Plan DVT prophylaxis: Off of heparin drip due to hematuria CODE STATUS: DNR/DNI Spoke to the son at the bedside on admission 12/01. Admission and Anticipated Discharge Date Admission Date: December 01, 2024 Subjective Patient was seen and examined at 10:05 AM. She says that her bilateral feet pain is improving. Noted that overnight, she started having bloody urine with clots. Heparin drip was discontinued as there was a drop in hemoglobin Review of Systems Review of Systems: All systems reviewed & are unremarkable except as noted in Subjective Physical Exam Physical Exam: General: Awake, conversant Heart: S1, S2/regular rate and rhythm, no murmur rubs or gallops Lungs: Clear to auscultation bilaterally. Normal effort Abdomen: Soft/nontender/nondistended. No hepatosplenomegaly Extremities: No clubbing/cyanosis. Right foot cellulitis is improving further. Fading in color, less swollen Behavior: Appropriate, cooperative Results & Data Results & Data Vital Signs (Past 12 Hours) Vital Signs Temp Pulse Pulse Resp BP Pulse Ox O2 Del Method 12/03/24 11:29 36.5 C 95 H 16 118/75 95 Room Air 12/03/24 07:40 Room Air 12/03/24 07:34 36.7 C 93 H 16 161/85 H 95 Room Air 12/03/24 07:15 72 12/03/24 03:55 36.3 C L 84 16 128/71 96 Room Air Laboratory Results Abnormal lab results 12/02/24 12/03/24 Range/Units 21:32 05:36 RBC 4.01 L (4.20-5.40) M/uL Hgb 10.2 L 10.8 L (12.0-16.0) g/dl Hct 32.7 L 33.5 L (37.0-47.0) % RDW Std Deviation 47.8 H (36.4-46.3) fL RDW Coeff of Joe 15.7 H (11.5-14.5) % Heparin Anti-Xa, Unfract < 0.10 L (0.3-0.7) IU/ml PG Care Time/CCT Total # of Minutes Spent Total Time Spent with Patient: Total time spent is greater than 50% in coordination of care (as documented) at patient's floor/unit and/or counseling patient: Coding Level of Care Code 48384 SUB INP/OBS CARE 235MIN Diagnoses Cellulitis of right foot L03.115 Peripheral vascular disease of lower extremity I73.9 Hypertension I10 CKD (chronic kidney disease) stage 3, GFR 30-59 ml/min N18.30 Hyperlipidemia E78.5 Hematuria R31.9
--- NOTE | 2024-12-04 09:35 | Consultation ---
Date of Consultation December 04, 2024 Assessment & Plan (1) PAD (peripheral artery disease): Pt with significant RLE PAD, LLE not imaged but flow appears adequate by exam. RLE with cracked skin/ulcer beneath great toe, likely nidus for infection. Recommend conservative measures for this, possibly wound clinic or podiatry eval. Pt with good cap refill and toe movement. No rest pain and pt does not ambulate far enough to claudicate. RLE arterial imaging indicates significant PAD with limited options for revascularization, however, pt adamantly refuses any surgical intervention. Recommend abx and local wound care per medical team. Please call if needed. History of Present Illness Reason for Consultation: PAD Attending Physician: Rocio Rosales MD History of Present Illness 84 yo f with hx of HTN, osteoporosis, OA, anemia, cataracts, admitted from SNF with R foot infection, seen in consultation today for PAD noted on imaging. Pt is a poor historian, but states has had pain in both feet for many years. States pain is controlled with Tylenol BID and is not positional. Sometimes pain waxes and wanes. Does not ambulate. Denies prior nonhealing wounds to feet in past. Per chart, pt with cracked skin/ulcer between and plantar surface toes RLE, and erythema to midfoot. Pt states both feet feel the same. Denies FUENTES, fever, chest pain, SOB, abd pain, N/V, rest pain, claudication, other complaints. CTA RLE only demonstrates VALET MANAGER and SFA stenosis, Pop occlusion, and 2 vessel runoff via distal reconstitution. Allergies Allergy/AdvReac Type Severity Reaction Status Date / Time Penicillins Allergy Intermediate Swelling Verified 09/12/24 13:46 of Lip/Tongue/Throat Home Medications Medication Instructions Recorded Confirmed Type cholecalciferol (vitamin D3) 50 2,000 unit PO DAILY 01/04/24 09/12/24 History mcg (2,000 unit) capsule (Vitamin D3) losartan 25 mg tablet 25 mg PO DAILY 01/04/24 09/12/24 History vit C 250 mg-vit E 90 mg-zinc 40 1 tab PO DAILY 01/04/24 09/12/24 History mg-copper 1 [id number] capsule (PreserVision AREDS-2) acetaminophen 325 mg tablet 650 mg PO BID 04/12/24 09/12/24 History (Tylenol) carboxymethylcellulose sodium 0.5 1 drp ophthalmic (eye) QID 04/12/24 09/12/24 History % eye drops in a dropperette (Refresh Plus) diclofenac sodium 1 % topical gel 2 g topical QID 04/12/24 09/12/24 History docusate sodium 100 mg capsule 100 mg PO DAILY 04/12/24 09/12/24 History (Colace) Patient History Medical History Mild cognitive impairment Hypertension CKD (chronic kidney disease) stage 3, GFR 30-59 ml/min Recurrent dislocation of left temporomandibular joint Acute kidney injury Encounter for pre-operative examination DVT prophylaxis History of chemotherapy march-april 2020 vulvar cancer> jessie Dislocated mandible Glaucoma Hiatal hernia Hyperlipidemia Hypertension Surgical History History of mandibular surgery 08/09/20 [facility] for jaw dislocation Hx of bilateral cataract extraction H/O colonoscopy (~2017) S/P iridectomy History of hysterectomy History of hernia repair History of arthroscopy of right knee 15 years ago History of bladder repair surgery Family History Mother , age 60's Stroke Father , of old age, age 80 Stroke Son No problems noted. Son , of MVA age 15 No problems noted. Family/Other Hypertension Denies family history of Ovarian cancer Prostate cancer Myocardial infarction Breast cancer Colorectal cancer Social History Smoking Status: Never smoker Second Hand Exposure: No (parents smoked several yrs ago); Do You Dip or Chew Tobacco: No; Hx Alcohol Use: No Hx Substance Use: No Preferred Language: Romansh Communication Ability: Effective Visual Impairment: Limited Hearing Ability: Normal Quantitative Analyst Required: No Beliefs That Will Affect Care: None marital status: / Current Living Situation: [facility] current occupational status: retired How many Children do You have: 2 Feels Safe at Home: Yes Childhood Exposure to Second-Hand Smoke: No Diet: regular caffeine: Yes (2 cups a day) Dental Care, Regularly: Yes Physical Activity Frequency: Daily Physical Activity Frequency Comment: walks in apartment hallway Seatbelt Use: always Sunscreen Use: No Assistive Devices: Mechanical Lift and Wheelchair Review of Systems Review of Systems: All systems reviewed & are unremarkable except as noted in HPI & below Physical Exam Constitutional: WD/WN, vitals as above + frail appearing, cooperative and comfortable; not in distress Eyes: + corneal abnormality (R eye white) Neck: trachea midline Respiratory: normal respiratory effort, lungs clear to auscultation Auscultation: + diminished lung sounds Cardiovascular: Rate/Rhythm: + tachycardic Vessels: femoral pulses present, posterior tibial pulses present (RLE monophasic, faint. LLE biphasic) and dorsalis pedis pulses present (RLE monophasic, LLE biphasic) Extremities: normal capillary refill; no edema Gastrointestinal (Abdomen): Inspection/Auscultation: abdomen normal to inspection and normal bowel sounds Percussion/Palpation: abdomen soft; abdomen nontender Musculoskeletal: no cyanosis or clubbing, extremities motor strength 5/5 Skin: + ulcer (R plantar great toe, cracked sk in) and + erythema (R foot/toes) Neurologic: moves all extremities, awake and + confused (very mild); no focal motor deficits Psychiatric: Orientation: alert, oriented to person and oriented to place; + not oriented to time Affect: euthymic affect Results & Data Vital Signs (Past 12 Hours) Vital Signs Temp Pulse Pulse Resp BP Pulse Ox O2 Del Method 12/04/24 09:12 Room Air 12/04/24 07:28 36.7 C 101 H 16 121/73 94 Room Air 12/04/24 07:00 89 12/04/24 03:58 36.6 C 83 16 138/78 94 Room Air 12/04/24 01:03 Room Air 12/03/24 22:59 36.7 C 87 16 144/87 H 95 Room Air 12/03/24 21:50 80
[2024-12-04 10:21] LABS: Hematocrit (blood only) 33.1 % (37.0-47.0); Hemoglobin 10.8 g/dl (12.0-16.0); Mean Corpuscular Hemoglobin 27.1 pg (25.0-34.0); Mean Corpuscular Hgb Conc 32.6 g/dL (32.0-36.0); Mean Corpuscular Volume 83.2 fL (80.0-100.0); Mean Platelet Volume 11.2 fL (9.4-12.4); Platelet Count 356 K/uL (130-400); RDW Coefficient of Variation 15.7 % (11.5-14.5); RDW Standard Deviation 47.8 fL (36.4-46.3); Red Blood Count 3.98 M/uL (4.20-5.40); White Blood Count 9.45 K/ul (4.8-10.8)
[2024-12-04 10:38] LABS: BUN Creatinine Ratio 20.6 (10-20); Calcium 10.1 mg/dl (8.6-10.3); Creatinine Clr Calc Pharmacy 32.6 ml/min; Potassium 4.2 mmol/L (3.5-5.1)
--- NOTE | 2024-12-04 12:02 | Pharmacy Report ---
Pharmacy PK ABX Note - Date of Service December 04, 2024 - Assessment and Plan Assessment 12/04: Reviewed vancomycin level, predicting therapeutic AUC/ALMA DELIA, continue current vancomycin regimen. Blood cultures NG x48 hours. 12/02: 84 year old F receiving vancomycin and cefepime for treatment of cellulitis. Blood cultures pending. Renal function stable. Day #2 of antimicrobial therapy. Plan Vancomycin * Loading dose: 1250 mg IV x 1 * Maintenance dose: 1000 mg IV every 24 hours * Regimen is predicted to achieve target AUC/ALMA DELIA of 400-600 mg/L.hr * Will obtain a level after 48h of therapy if vancomycin continued, or sooner if clinically indicated Pharmacy will continue to follow and will adjust dose/frequency as necessary. Thank you. Pharmacy has transitioned to AUC monitoring for vancomycin. AUC/ALMA DELIA is the preferred PK/PD target and is associated with decreased risk of nephrotoxicity compared to traditional trough targets.
--- NOTE | 2024-12-04 14:23 | Hospitalist Progress Note ---
Date of Service December 04, 2024 Assessment & Plan (1) Cellulitis of right foot: (2) Peripheral vascular disease of lower extremity: (3) Hematuria: (4) Hypertension: Plan This patient is an 84-year-old female with history of HTN, osteoporosis, OA, CKD stage III, anemia, HLD, mild cognitive impairment, and vulvar squamous cell carcinoma who presents from her intermediate with right foot pain, erythema, swelling, found to have cellulitis and open crack/wounds of the feet and toes. She was found to have significant RLE PAD with FRIEND [employer] and SFA stenosis, popliteal occlusion, and two-vessel runoff via distal reconstitution on CT angiogram RLE. She desires conservative treatment/no vascular surgery intervention. #Cellulitis of right foot: With interdigital fissures that are likely the port of entry for bacteria. Continues to be improving daily with IV vancomycin and cefepime. Erythema and edema and pain have significantly reduced. No evidence of sepsis and blood cultures remain no growth to date -Continue cefepime and vancomycin and convert to p.o. antibiotics to finish out a 10-day course on discharge -Continue wound care of the fissures-consult wound care nurse for further recommendations -Follow blood cultures #PAD CTA with lower extremity showed significant RLE PAD with FRIEND [employer] and SFA stenosis, popliteal occlusion, and two-vessel runoff via distal reconstitution on CT angiogram RLE. She desires conservative treatment/no vascular surgery intervention. She was never a smoker and is not a known diabetic. Hgb A1c pending, lipid panel excellent. Heparin drip has been discontinued. -Follow-up on HgbA1c when available -Given severe PAD, start aspirin 81 mg daily and high intensity atorvastatin 40 mg daily -Encouraged continued ambulation as she does experience leg fatigue with walking #Hematuria: The patient started having hematuria on heparin drip-was passing clots. Urinalysis showed WBCs and RBCs, but no bacteria. CT abdomen/pelvis from within the last 6 months shows no renal or bladder masses. She does have a history of vulvar cancer treated with chemotherapy and radiation in the last several years. Hematuria has now stopped off heparin drip. Urine culture with lactobacillus which does not require treatment. Follow for further hematuria with starting aspirin 81 mg daily -Recommend outpatient urology follow-up in case there is an occult malignancy causing hematuria while on blood thinners-discussed with patient and her daughter #Anemia-Hgb mildly low but stable from previous at 10.8, borderline microcytic. Baseline hemoglobin around 11 and thought to be related to CKD stage III but also previously was on iron supplementation. -Follow CBC especially with previous hematuria -Check iron studies in the morning #Hypertension: Blood pressures are controlled -Home losartan is on hold-can resume in the morning #CKD stage 3-creatinine at baseline, no acute issues -Monitor BMP Avoid nephrotoxic medications -Resume home losartan #Hyperlipidemia: Patient has a documented history of hyperlipidemia but does not seem to be on any statin. Fasting lipid panel here was controlled, but given severe PAD, needs to be on a statin -Start atorvastatin 40 mg daily DVT prophylaxis: Off of heparin drip due to hematuria Disposition-continued stay but improving, likely discharge to [facility] where she is a bed hold on 12/05 or 12/06 Admission and Anticipated Discharge Date Admission Date: December 01, 2024 Subjective Patient denies any further hematuria. Reports pain in her feet is controlled with Tylenol. Nurse at the bedside reports the patient's erythema in her feet is significantly improved over the last several days that she has seen her. Telemetry with normal sinus rhythm, IVCD, rates in the 80s to 90s Physical Exam Constitutional: WD/WN, vitals as above Respiratory: normal respiratory effort, lungs clear to auscultation Cardiovascular: RRR, no murmur, no edema Gastrointestinal (Abdomen): normal bowel sounds, soft, nontender, no hepatosplenomegaly Skin: Bilateral feet with lines of demarcation drawn and only very mild erythema on dorsal right foot receded from line. Deep cracks on plantar surface at bases of multiple toes and cracks between toes with macerated skin between toes Results & Data Results & Data Vital Signs (Past 12 Hours) Vital Signs Temp Pulse Pulse Resp BP Pulse Ox O2 Del Method 12/04/24 11:41 37.7 C H 86 14 105/62 95 Room Air 12/04/24 09:12 Room Air 12/04/24 07:28 36.7 C 101 H 16 121/73 94 Room Air 12/04/24 07:00 89 12/04/24 03:58 36.6 C 83 16 138/78 94 Room Air Laboratory Results CBC, BMP, blood cultures, urinalysis reviewed PG Care Time/CCT Total # of Minutes Spent Total Time Spent with Patient: Total time spent is greater than 50% in coordination of care (as documented) at patient's floor/unit and/or counseling patient: Coding Level of Care Code 48519 SUB INP/OBS CARE 235MIN Diagnoses Cellulitis of right foot L03.115 Peripheral vascular disease of lower extremity I73.9 Hematuria R31.9 Hypertension I10
[2024-12-05 08:35] LABS: Hematocrit (blood only) 32.1 % (37.0-47.0); Hemoglobin 10.4 g/dl (12.0-16.0); Mean Corpuscular Hemoglobin 26.9 pg (25.0-34.0); Mean Corpuscular Hgb Conc 32.4 g/dL (32.0-36.0); Mean Corpuscular Volume 82.9 fL (80.0-100.0); Mean Platelet Volume 11.4 fL (9.4-12.4); Platelet Count 356 K/uL (130-400); RDW Coefficient of Variation 15.7 % (11.5-14.5); RDW Standard Deviation 47.1 fL (36.4-46.3); Red Blood Count 3.87 M/uL (4.20-5.40); White Blood Count 9.71 K/ul (4.8-10.8)
[2024-12-05 08:56] LABS: BUN Creatinine Ratio 20.2 (10-20); Creatinine Clr Calc Pharmacy 29.3 ml/min; Potassium 4.2 mmol/L (3.5-5.1)
[2024-12-05] MEDS: LOSARTAN POTASSIUM 25 MG TAB PO SCH (09:17)
[2024-12-05] MEDS: ASPIRIN 81 MG ECTAB PO SCH (09:18)
[2024-12-05] MEDS: ATORVASTATIN 40 MG TAB PO SCH (09:18)
--- NOTE | 2024-12-05 10:09 | XRay Report ---
XR chest 1V portable CLINICAL HISTORY: tachycardia COMPARISON STUDY: Chest CT April 23, 2022. Chest radiograph January 04, 2024. FINDINGS: There is no pneumothorax or pleural effusion. Hazy opacity along the left heart border favo rs epicardial fat pad. There is a moderate sized hiatal hernia. Cardiomegaly is noted without evidenc e for pulmonary edema. IMPRESSION: 1. No acute cardiopulmonary findings. 2. Cardiomegaly without evidence for pulmonary edema. 3. Hiatal hernia. ACT 112: Negative or not required by law. Electronically signed by: Haris Peña M.D. 12/05/2024 10:08 AM
[2024-12-05 12:07] LABS: Estimated Average Glucose 117 mg/dl; Hemoglobin A1C 5.7 % (4.5-5.6)
--- NOTE | 2024-12-05 12:58 | Electrocardiogram Report ---
Test Reason : Blood Pressure : */* mmHG Vent. Rate : 83 BPM Atrial Rate : 83 BPM P-R Int : 182 ms QRS Dur : 130 ms QT Int : 418 ms P-R-T Axes : 27 -6 138 degrees QTcB Int : 491 ms Normal sinus rhythm Left atrial enlargement Left bundle branch block Abnormal ECG When compared with ECG of 04-Jan-2024 22:11, No significant change Confirmed by Kenrick Bridges ([id number]) on 12/05/2024 12:58:35 PM [facility] Confirmed By: Kenrick Bridges
--- NOTE | 2024-12-05 15:54 | Hospitalist Progress Note ---
Date of Service December 05, 2024 Assessment & Plan (1) Cellulitis of right foot: Plan: Currently on intravenous cefepime and vancomycin. Local care. Appreciate wound care assistance (2) Peripheral vascular disease of lower extremity: Plan: Known stenosis of the common femoral artery and superficial femoral artery on the right side. She is now agreeable to vascular intervention if necessary. Vascular consult follow-up requested. (3) Hematuria: Plan: Occurred while on heparin drip. Resolved once the heparin drip was discontinued. Outpatient neurological evaluation recommended (4) Hypertension: Plan: Stable. Continue current medical management. EKG reveals normal heart rate with evidence of left bundle branch block and right bundle branch block (5) Chronic kidney disease, stage III (moderate): Plan: Monitor intake and output. Serial labs Plan Eventual return to Center care Admission and Anticipated Discharge Date Admission Date: December 01, 2024 Subjective Awake and alert. She is complaining of resting right foot pain which quite possibly is ischemic in nature. She now agrees to vascular intervention if necessary. She has known common femoral and superficial femoral artery stenosis of the right leg. Right foot cellulitis is being treated with cefepime and vancomycin. Hematuria has resolved off of the heparin drip. Review of Systems 2 Review of Systems: Constitutionalno fever or chills ENTno blurred vision, no double vision, no epistaxis, no sore throat Respiratoryno cough, no wheezing, no shortness of breath Cardiacno palpitations, no chest pain, no syncope Wilder nausea, vomiting, diarrhea, melena, hematochezia GUno urinary retention, no urinary incontinence, no dysuria, no hematuria Musculoskeletalresting right foot pain. Skinpallor noted in both lower extremities below the knees. Crusted lesions on the plantar surface at the base of the right toes. Neurono isolated weakness, no paresthesia Psychno depression, no anxiety Physical Exam 2 Physical Exam: General-alert and oriented x3, no fever, no chills HEENT-head atraumatic and normocephalic, pupils equal and reactive to light, extraocular muscles intact Neck-no lymphadenopathy or thyromegaly, trachea midline Chest-clear to auscultation. No rales, wheezing or rhonchi Cardiac-regular rate and rhythm, normal S1 and S2 Abdomen-normal bowel sounds, no hepatosplenomegaly Extremities-pallor noted bilateral lower extremities below the knees. Crusted skin lesions at the base of the toes on the plantar surface of the right foot Neuro-cranial nerves II through XII intact, motor and sensory function within normal limits, strength symmetrical, no focal deficits Psych-normal affect, normal mood Results & Data Results & Data Vital Signs (Past 12 Hours) Vital Signs Temp Pulse Pulse Resp BP Pulse Ox O2 Del Method 12/05/24 14:02 85 12/05/24 11:03 36.6 C 89 18 138/77 94 Room Air 12/05/24 09:15 Room Air 12/05/24 07:23 36.4 C L 115 H 20 124/74 93 Room Air 12/05/24 07:04 71 Laboratory Results 12/05/24 07:33 12/05/24 07:33 PG Care Time/CCT Total # of Minutes Spent Total Time Spent with Patient: Total time spent is greater than 50% in coordination of care (as documented) at patient's floor/unit and/or counseling patient: Coding Level of Care Code 37287 SUB INP/OBS CARE 3/50MIN Diagnoses Cellulitis of right foot L03.115 Peripheral vascular disease of lower extremity I73.9 Hematuria R31.9 Hypertension I10 Chronic kidney disease, stage III (moderate) N18.30
[2024-12-06 08:11] LABS: Hematocrit (blood only) 31.6 % (37.0-47.0); Hemoglobin 10.1 g/dl (12.0-16.0); Mean Corpuscular Hemoglobin 26.6 pg (25.0-34.0); Mean Corpuscular Volume 83.2 fL (80.0-100.0); Mean Platelet Volume 10.8 fL (9.4-12.4); Platelet Count 343 K/uL (130-400); RDW Coefficient of Variation 15.8 % (11.5-14.5); RDW Standard Deviation 47.8 fL (36.4-46.3); White Blood Count 10.09 K/ul (4.8-10.8)
[2024-12-06 08:25] LABS: BUN Creatinine Ratio 23.1 (10-20); Calcium 9.9 mg/dl (8.6-10.3); Creatinine Clr Calc Pharmacy 29.8 ml/min; Potassium 4.2 mmol/L (3.5-5.1)
--- NOTE | 2024-12-06 14:01 | Communication Note ---
Date of Service: December 06, 2024 Discussed possibility of arteriography with possible intervention with the patient and her son. They understood the risks options and benefits of the pr ocedure and agree to the procedure.. This will be scheduled for Wednesday.
--- NOTE | 2024-12-06 15:10 | Hospitalist Progress Note ---
Date of Service December 06, 2024 Assessment & Plan (1) Cellulitis of right foot: Plan: Currently on intravenous cefepime. Vancomycin has been discontinued. Local care. Appreciate wound care assistance (2) Peripheral vascular disease of lower extremity: Plan: Known stenosis of the common femoral artery and superficial femoral artery on the right side. She is now agreeable to vascular intervention if necessary and vascular surgery has seen the patient and she will be placed on the schedule for angiography of the right lower extremity on December 08. (3) Hematuria: Plan: Occurred while on heparin drip. Resolved once the heparin drip was discontinued. Outpatient urological evaluation recommended (4) Hypertension: Plan: Stable. Continue current medical management. EKG reveals normal heart rate with evidence of left bundle branch block and right bundle branch block (5) Chronic kidney disease, stage III (moderate): Plan: Monitor intake and output. Serial labs Plan Eventual return to Center care Admission and Anticipated Discharge Date Admission Date: December 01, 2024 Subjective Alert and oriented. No distress. Right foot discomfort has lessened somewhat. Vascular surgery entry noted. Right lower extremity angiography will be completed this December 08. Vancomycin discontinued. She remains on cefepime. Hemoglobin is stable. Review of Systems 2 Review of Systems: Constitutionalno fever or chills ENTno blurred vision, no double vision, no epistaxis, no sore throat Respiratoryno cough, no wheezing, no shortness of breath Cardiacno palpitations, no chest pain, no syncope Wilder nausea, vomiting, diarrhea, melena, hematochezia GUno urinary retention, no urinary incontinence, no dysuria, no hematuria Musculoskeletalresting right foot pain. Skinpallor noted in both lower extremities below the knees. Crusted lesions on the plantar surface at the base of the right toes. Neurono isolated weakness, no paresthesia Psychno depression, no anxiety Physical Exam 2 Physical Exam: General-alert and oriented x3, no fever, no chills HEENT-head atraumatic and normocephalic, pupils equal and reactive to light, extraocular muscles intact Neck-no lymphadenopathy or thyromegaly, trachea midline Chest-clear to auscultation. No rales, wheezing or rhonchi Cardiac-regular rate and rhythm, normal S1 and S2 Abdomen-normal bowel sounds, no hepatosplenomegaly Extremities-pallor noted bilateral lower extremities below the knees. Crusted skin lesions at the base of the toes on the plantar surface of the right foot Neuro-cranial nerves II through XII intact, motor and sensory function within normal limits, strength symmetrical, no focal deficits Psych-normal affect, normal mood Results & Data Results & Data Vital Signs (Past 12 Hours) Vital Signs Temp Pulse Pulse Resp BP BP Pulse Ox 12/06/24 14:49 81 12/06/24 11:47 37.0 C 89 18 107/64 93 12/06/24 07:57 36.7 C 89 16 117/39 L 92 12/06/24 07:20 12/06/24 07:00 76 12/06/24 04:04 36.7 C 98 H 18 117/70 92 O2 Del Method 12/06/24 14:49 12/06/24 11:47 Room Air 12/06/24 07:57 Room Air 12/06/24 07:20 Room Air 12/06/24 07:00 12/06/24 04:04 Room Air Laboratory Results 12/06/24 07:39 12/06/24 07:39 PG Care Time/CCT Total # of Minutes Spent Total Time Spent with Patient: Total time spent is greater than 50% in coordination of care (as documented) at patient's floor/unit and/or counseling patient: Coding Level of Care Code 52328 SUB INP/OBS CARE 2MIN Diagnoses Cellulitis of right foot L03.115 Peripheral vascular disease of lower extremity I73.9 Hematuria R31.9 Hypertension I10 Chronic kidney disease, stage III (moderate) N18.30
[2024-12-07 07:04] LABS: Hematocrit (blood only) 31.1 % (37.0-47.0); Mean Corpuscular Hemoglobin 26.9 pg (25.0-34.0); Mean Corpuscular Hgb Conc 32.2 g/dL (32.0-36.0); Mean Corpuscular Volume 83.6 fL (80.0-100.0); Platelet Count 334 K/uL (130-400); RDW Coefficient of Variation 15.7 % (11.5-14.5); RDW Standard Deviation 47.8 fL (36.4-46.3); Red Blood Count 3.72 M/uL (4.20-5.40); White Blood Count 10.74 K/ul (4.8-10.8)
[2024-12-07 07:27] LABS: BUN Creatinine Ratio 21.5 (10-20); Calcium 9.9 mg/dl (8.6-10.3); Creatinine Clr Calc Pharmacy 26.8 ml/min; Potassium 4.4 mmol/L (3.5-5.1)
--- NOTE | 2024-12-07 14:53 | Hospitalist Progress Note ---
Date of Service December 07, 2024 Assessment & Plan (1) Cellulitis of right foot: Plan: Currently on intravenous cefepime, day 7. Dosage adjusted today, 12/07, per pharmacy.. Vancomycin has been discontinued. Local care. Appreciate wound care assistance (2) Peripheral vascular disease of lower extremity: Plan: Known stenosis of the common femoral artery and superficial femoral artery on the right side. She is now agreeable to vascular intervention if necessary and vascular surgery has seen the patient and she will undergo angiography of the right lower extremity on December 08. (3) Hematuria: Plan: Occurred while on heparin drip. Resolved once the heparin drip was discontinued. Hemoglobin is stable. Outpatient urological evaluation recommended (4) Hypertension: Plan: Stable. Continue current medical management. EKG reveals normal heart rate with evidence of left bundle branch block and right bundle branch block (5) Chronic kidney disease, stage III (moderate): Plan: Monitor intake and output. Serial labs Plan Eventual return to [facility] care Admission and Anticipated Discharge Date Admission Date: December 01, 2024 Subjective Alert and pleasant. She will undergo right lower extremity arteriography tomorrow per vascular surgery, December 08. No new problems. She remains on intravenous cefepime, day 7. Hemoglobin stable at 10.0. Review of Systems 2 Review of Systems: Constitutionalno fever or chills ENTopacified OD with blindness. No epistaxis, no sore throat Respiratoryno cough, no wheezing, no shortness of breath Cardiacno palpitations, no chest pain, no syncope Wilder nausea, vomiting, diarrhea, melena, hematochezia GUno urinary retention, no urinary incontinence, no dysuria, no hematuria Musculoskeletalresting right foot pain. Skinpallor noted in both lower extremities below the knees. Crusted lesions on the plantar surface at the base of the right toes. Neurono isolated weakness, no paresthesia Psychno depression, no anxiety Physical Exam 2 Physical Exam: General-alert and oriented x3, no fever, no chills HEENT-head atraumatic and normocephalic, opacified OD with blindness, extraocular muscles intact Neck-no lymphadenopathy or thyromegaly, trachea midline Chest-clear to auscultation. No rales, wheezing or rhonchi Cardiac-regular rate and rhythm, normal S1 and S2 Abdomen-normal bowel sounds, no hepatosplenomegaly Extremities-pallor noted bilateral lower extremities below the knees. Crusted skin lesions at the base of the toes on the plantar surface of the right foot Neuro-cranial nerves II through XII intact, motor and sensory function within normal limits, strength symmetrical, no focal deficits Psych-normal affect, normal mood Results & Data Results & Data Vital Signs (Past 12 Hours) Vital Signs Temp Pulse Pulse Resp BP Pulse Ox O2 Del Method 12/07/24 11:35 36.5 C 76 18 108/72 95 Room Air 12/07/24 07:58 37 C 100 H 18 124/75 92 Room Air 12/07/24 07:38 81 12/07/24 03:25 36.4 C L 91 H 20 134/73 96 Room Air Laboratory Results 12/07/24 06:38 12/07/24 06:38 PG Care Time/CCT Total # of Minutes Spent Total Time Spent with Patient: Total time spent is greater than 50% in coordination of care (as documented) at patient's floor/unit and/or counseling patient: Coding Level of Care Code 13374 SUB INP/OBS CARE 2MIN Diagnoses Cellulitis of right foot L03.115 Peripheral vascular disease of lower extremity I73.9 Hematuria R31.9 Hypertension I10 Chronic kidney disease, stage III (moderate) N18.30
[2024-12-07] MEDS: CEFEPIME 1000MG 1,000 MG/10 ML SYR IV SCH (18:20)
[2024-12-08] MEDS: SODIUM CHLORIDE 0.9% 1000 ML BAG IV SCH (05:30)
--- NOTE | 2024-12-08 07:44 | History & Physical Bridge Note ---
Date of Service December 08, 2024 History & Physical Bridge Note Patient for arteriography with possible intervention of her right lower extremity. I have discussed the risks options and benefits of the procedure with the patient and her family. The patient and her family understand the risks options and benefits and agrees to the procedure. I have examined the patient, reviewed the History & Physical and in the interval since the performance of the History & Physical I have noted the following changes of clinical significance: no changes noted
[2024-12-08] MEDS: fentaNYL citrate PF 100 MCG/2 ML VIAL ONE (08:33)
[2024-12-08] MEDS: MIDAZOLAM HCL 1 MG/ML 2ML VIAL ONE (08:34)
[2024-12-08] MEDS: LIDOCAINE 1% LOCAL 20 ML VIAL ONE (09:07)
[2024-12-08] MEDS: VISIPAQUE IV PRN (09:08)
--- NOTE | 2024-12-08 09:11 | Pre Anesthesia Assessment ---
Date of Service December 08, 2024 Pre Sedation Assessment Vital Signs Temp Pulse Pulse Pulse Resp BP BP 12/08/24 09:10 79 16 152/77 H 12/08/24 09:05 83 16 156/82 H 12/08/24 09:00 83 16 149/87 H 12/08/24 08:55 89 16 157/89 H 12/08/24 08:50 90 16 156/90 H 12/08/24 08:45 85 16 149/79 H 12/08/24 08:40 82 16 146/78 H 12/08/24 08:35 77 16 147/75 H 12/08/24 08:30 80 16 145/79 H 12/08/24 08:25 79 16 130/72 12/08/24 08:20 80 16 145/85 H 12/08/24 08:15 84 16 155/83 H 12/08/24 07:28 36.6 C 83 20 167/91 H 12/08/24 07:24 82 12/08/24 03:50 36.7 C 71 18 136/73 12/07/24 23:11 36.5 C 65 18 136/74 12/07/24 22:13 73 12/07/24 19:55 36.7 C 75 20 131/75 12/07/24 16:13 36.7 C 75 18 111/74 12/07/24 11:35 36.5 C 76 18 108/72 Pulse Ox O2 Del Method O2 Flow Rate 12/08/24 09:10 99 Oxymask 4 12/08/24 09:05 99 Oxymask 4 12/08/24 09:00 99 Oxymask 4 12/08/24 08:55 99 Oxymask 4 12/08/24 08:50 99 Oxymask 4 12/08/24 08:45 98 Oxymask 4 12/08/24 08:40 98 Oxymask 4 12/08/24 08:35 99 Oxymask 4 12/08/24 08:30 99 Oxymask 4 12/08/24 08:25 95 Oxymask 4 12/08/24 08:20 95 Oxymask 4 12/08/24 08:15 95 Oxymask 4 12/08/24 07:28 97 Room Air 12/08/24 07:24 12/08/24 03:50 94 Room Air 12/07/24 23:11 95 Room Air 12/07/24 22:13 12/07/24 19:55 95 Room Air 12/07/24 16:13 96 Room Air 12/07/24 11:35 95 Room Air Cardiovascular RRR, no murmur, no edema Respiratory normal respiratory effort, lungs clear to auscultation Pre-Sedation Airway Assessment Smoking Status: Never smoker Hx Sleep Apnea: No Short, Thick Neck: No Thyromental Distance: > or= 3.5 Finger Breadths Oral Cavity: + WNL Mallampati Class: II ASA: ASA3 NPO Status Date of Last Intake of Fluids: 12/07/24 Time of Last Intake of Fluids: 21:00 Date of Last Intake of Solid Food: 12/07/24 Time of Last Intake of Solid Foods: 19:00 Procedure Planning Contraindications for Sedation: none Current Medications Reviewed: Yes Notes The planned sedation has been discussed with the patient. Informed Consent was obtained. I have identified the patient, determined the appropriateness of sedation and have assessed the patient immediately prior to the procedure. All medicine(s) and interventions are by my order.
--- NOTE | 2024-12-08 09:17 | Procedure Note ---
Angiogram Post Procedure Fluoroscopy Time (minutes): 8.3 Conscious Sedation Time (minutes): 58 Radiation (mGy): 38 Contrast: 52 Post Operative Report Pre & Post Diagnosis Operation Date: 12/08/24 08:00 Pre-Op Diagnosis: Ischemic Left Foot Post-Op Diagnosis: Ischemic Left Foot I identified the patient and participated in the time-out.: Yes Procedure Operation Date: 12/08/24 08:00 Actual Procedures p Right Leg Angiogram,Percutaneous Transluminal Angioplasty and Stenting of Right Superficial Femoral Artery,Percutaneous Translumimal Angioplasty of Right Peroneal Artery,Ultrasound Localization of Left Femoral Artery,Mechanical Missy sure of Left Femoral Artery,Moderate Sedation [id number](Left) - Bryon Up MD Surgeon Bryon Up MD Fabric Machine Operator none Estimated Blood Loss 20 Findings Consistent with Post-Op Diagnosis Specimens none Anesthesia Type RN Sedation Complications none Disposition Accompanied Patient To Recovery: No Disposition: Recovery Room Indications Is an 84-year-old female developed ulcerations of her right foot and had pain in her right foot which is worsening. She was found to have severe occlusion of the right lower extremity. Arteriography possible medically documented. I have discussed the risks options and benefits of the procedure with the pat ient. The patient understands the risks options and benefits and agrees to the procedure. Description of Procedure The patient was taken to the angiogram suite and placed spine position. After both groins were prepped draped in a sterile manner the patient was identified and timeout was performed. Using ultrasound the left common femoral artery was identified. It was patent with mild plaque. Using ultrasound guidance percutaneous puncture was made of the left common femoral artery and 5 Swedish sheath inserted. Next using a rim catheter and a 035 Glidewire the right iliac was cannulated on the left side. The rim cath was passed down to the distal external iliac artery. Right lower extremity geography was performed. This showed a short area superficial femoral artery which appeared to be 99% narrowing with a short occlusion. She also had a short area of 99% narrowing in her peroneal artery in the proximal portion. The anterior tibial and posterior tibial arteries were occluded proximally. There was some reconstitution seen of the posterior tibial artery on the delayed films. We then inserted an 035 stiff and Glidewire. We exchanged the 5 Swedish sheath to a 6 Swedish destination. Using the 035 wire to the proximal lesion superficial femoral artery was crossed. We tried to pass a 6 x 40 balloon but this was unsuccessful. We then tried a 4 x 100 balloon through this lesion again and it was unsuccessful and cannot be passed. Using a quick cross catheter we exchanged the wire to an 014 command wire. We then used a 4 x 20 Austin 14 balloon which was able to pass the lesion. We predilated lesion with a 4 millimeter balloon. Once this was done we inserted a 5 x 10 Vi[place]ahn due to the heavy calcification and narrowing which remained. Once this was deployed we used a 6 x 100 balloon to post dilate the stent. Excellent flow was seen through this area. There was a 20 to 30% narrowing slightly further down above the but flow was rapid through this we did not want to treat this. We then passed the 014 wire through the perineal lesion. We then used a 3 x 60 Austin 14 balloon to dilate this area. Once was completed the completion angiogram showed good flow through the superficial femoral artery and peroneal artery. The Dopplers were much better on the posterior tibial at the foot as well as the peroneal above the ankle. The foot pinked up nicely. The wire and the balloon were removed. We then reinserted the 035 wire. The sheath was pulled the puncture closed with a Star closure device. Adequate hemostasis was noted. Sterile dressings were applied.The patient left the operation room in satisfactory condition and tolerated the procedure well. All needle and sponge counts were correct at the end of the procedure. I attest to the content of the Intraoperative Record and any orders documented therein. Any exceptions are noted below.
--- NOTE | 2024-12-08 09:27 | Post Anesthesia Assessment ---
Date of Service December 08, 2024 Post Sedation Assessment Vital Signs Temp Pulse Pulse Pulse Resp BP BP 12/08/24 09:13 79 16 145/78 H 12/08/24 09:10 79 16 152/77 H 12/08/24 09:05 83 16 156/82 H 12/08/24 09:00 83 16 149/87 H 12/08/24 08:55 89 16 157/89 H 12/08/24 08:50 90 16 156/90 H 12/08/24 08:45 85 16 149/79 H 12/08/24 08:40 82 16 146/78 H 12/08/24 08:35 77 16 147/75 H 12/08/24 08:30 80 16 145/79 H 12/08/24 08:25 79 16 130/72 12/08/24 08:20 80 16 145/85 H 12/08/24 08:15 84 16 155/83 H 12/08/24 07:28 36.6 C 83 20 167/91 H 12/08/24 07:24 82 12/08/24 03:50 36.7 C 71 18 136/73 12/07/24 23:11 36.5 C 65 18 136/74 12/07/24 22:13 73 12/07/24 19:55 36.7 C 75 20 131/75 12/07/24 16:13 36.7 C 75 18 111/74 12/07/24 11:35 36.5 C 76 18 108/72 Pulse Ox O2 Del Method O2 Flow Rate 12/08/24 09:13 99 Oxymask 4 12/08/24 09:10 99 Oxymask 4 12/08/24 09:05 99 Oxymask 4 12/08/24 09:00 99 Oxymask 4 12/08/24 08:55 99 Oxymask 4 12/08/24 08:50 99 Oxymask 4 12/08/24 08:45 98 Oxymask 4 12/08/24 08:40 98 Oxymask 4 12/08/24 08:35 99 Oxymask 4 12/08/24 08:30 99 Oxymask 4 12/08/24 08:25 95 Oxymask 4 12/08/24 08:20 95 Oxymask 4 12/08/24 08:15 95 Oxymask 4 12/08/24 07:28 97 Room Air 12/08/24 07:24 12/08/24 03:50 94 Room Air 12/07/24 23:11 95 Room Air 12/07/24 22:13 12/07/24 19:55 95 Room Air 12/07/24 16:13 96 Room Air 12/07/24 11:35 95 Room Air Recovery Score Activity: Moves 4 extremities Respiration: Deep Breath/Cough Circulation: +/-20% PreAnes Value Consciousness: Fully Awake Oxygen Saturation: O2 needed for >90% Post Anesthesia Score: 9 Discharge Sedation Level of Care: Fast Track Phase II Post Sedation Plan On clinical assessment, the patient appears to have tolerated the sedation without complications. Patient is recovering as anticipated. Patient will continue to be monitored by nursing and may be discharged when sedation discharge criteria are met per below protocol. Upon Completions of procedure up to 15 minutes continue every 5 minute vital signs and the P.A.R. score; then discharge to a Phase I or Fast Track to Phase II per the following guidelines: * Discharge Patient to appropriate Phase II area if PAR is 8 or greater or return to pre- procedure baseline. The post - procedure orders will be as directed. * If PAR score is less than 8 or not return to pre-procedure baseline then patient will follow Phase I monitoring till PAR is reached for Phase II. The Phase I may be done in procedure room or may call to secure a Phase I area. * If naloxone or flumazenil are used for reversal, hold in Phase I for continued monitoring from when last reversal dose was given for a minimum of 60 minutes or longer pending the nurse and/or physician discretion of patient condition before discharge to Phase II. Please call the Sedation Physician to re-evaluate and complete post-note for discharge to Phase II area. Do NOT discharge from procedure sedation or Phase 1 until post- sedation evaluation note is complete by procedure /sedation MD Sedation Discharge Instructions to be given to the patient at discharge to home.
[2024-12-08] MEDS: HEPARIN SOD (PORCINE) 1000 UNIT/ML ONE (10:30)
[2024-12-08] MEDS: SODIUM CHLORIDE 0.9% 1,000 ML IV SCH (11:02)
[2024-12-08] MEDS: CLOPIDOGREL BISULFATE 300 MG TAB PO STA (11:44)
[2024-12-08 11:45] LABS: BUN Creatinine Ratio 24.5 (10-20); Calcium 9.5 mg/dl (8.6-10.3); Creatinine Clr Calc Pharmacy 32.9 ml/min; Potassium 4.2 mmol/L (3.5-5.1)
--- NOTE | 2024-12-08 14:52 | Hospitalist Progress Note ---
Date of Service December 08, 2024 Assessment & Plan (1) Cellulitis of right foot: Plan: Currently on intravenous cefepime, day 8. Will switch to oral Bactrim therapy tomorrow, December 09. She is allergic to penicillin. Local care. Appreciate wound care assistance (2) Peripheral vascular disease of lower extremity: Plan: Known stenosis of the common femoral artery and superficial femoral artery on the right side. She underwent arteriography today, December 08 and subsequently had angioplasty with stent placement in the superficial femoral artery and angioplasty of a stenotic lesion in the peroneal artery on the right. Plavix has been added to aspirin per vascular surgery. (3) Hematuria: Plan: Occurred while on heparin drip. Resolved once the heparin drip was discontinued. Hemoglobin is stable. Outpatient urological evaluation recommended (4) Hypertension: Plan: Stable. Continue current medical management. EKG reveals normal heart rate with evidence of left bundle branch block and right bundle branch block (5) Chronic kidney disease, stage III (moderate): Plan: Monitor intake and output. Serial labs Plan Eventual return to [facility] where she has a bed hold. Possibly [email or web address] 09 Admission and Anticipated Discharge Date Admission Date: December 01, 2024 Subjective Alert and oriented. She underwent arteriography of the right lower extremity and was found to have stenosis of the right superficial femoral artery and right popliteal artery. She underwent angioplasty and stenting of the right SFA and angioplasty of the right peroneal artery. She is currently hemodynamically stable. She remains on cefepime for now will be switched to oral Bactrim tomorrow, December 09. This will be ongoing oral Bactrim until the right foot lesions are healed. Her son is at the bedside. Plavix has been added by vascular surgery. Hopefully she can return to [facility] where she has a bed hold, this weekend Review of Systems 2 Review of Systems: Constitutionalno fever or chills ENTopacified OD with blindness. No epistaxis, no sore throat Respiratoryno cough, no wheezing, no shortness of breath Cardiacno palpitations, no chest pain, no syncope Wilder nausea, vomiting, diarrhea, melena, hematochezia GUno urinary retention, no urinary incontinence, no dysuria, no hematuria Musculoskeletalresting right foot pain. Skinpallor in right lower extremity below the knees has resolved. Crusted lesions on the plantar surface at the base of several right toes. Neurono isolated weakness, no paresthesia Psychno depression, no anxiety Physical Exam 2 Physical Exam: General-alert and oriented x3, no fever, no chills HEENT-head atraumatic and normocephalic, opacified OD with blindness, extraocular muscles intact Neck-no lymphadenopathy or thyromegaly, trachea midline Chest-clear to auscultation. No rales, wheezing or rhonchi Cardiac-regular rate and rhythm, normal S1 and S2 Abdomen-normal bowel sounds, no hepatosplenomegaly Extremities-pallor of distal right lower extremity has resolved. Crusted skin lesions at the base of the toes on the plantar surface of the right foot Neuro-cranial nerves II through XII intact, motor and sensory function within normal limits, strength symmetrical, no focal deficits Psych-normal affect, normal mood Results & Data Results & Data Vital Signs (Past 12 Hours) Vital Signs Temp Pulse Pulse Pulse Resp BP BP 12/08/24 13:20 37.0 C 84 16 125/73 12/08/24 11:43 36.6 C 81 16 145/76 H 12/08/24 10:49 36.6 C 85 16 154/84 H 12/08/24 10:39 12/08/24 10:15 36.4 C L 80 16 135/79 12/08/24 10:01 36.4 C L 78 16 136/78 12/08/24 09:47 36.4 C L 75 16 145/77 H 12/08/24 09:40 36.4 C L 78 16 135/77 12/08/24 09:13 79 16 145/78 H 12/08/24 09:10 79 16 152/77 H 12/08/24 09:05 83 16 156/82 H 12/08/24 09:00 83 16 149/87 H 12/08/24 08:55 89 16 157/89 H 12/08/24 08:50 90 16 156/90 H 12/08/24 08:45 85 16 149/79 H 12/08/24 08:40 82 16 146/78 H 12/08/24 08:35 77 16 147/75 H 12/08/24 08:30 80 16 145/79 H 12/08/24 08:25 79 16 130/72 12/08/24 08:20 80 16 145/85 H 12/08/24 08:15 84 16 155/83 H 12/08/24 07:28 36.6 C 83 20 167/91 H 12/08/24 07:24 82 12/08/24 03:50 36.7 C 71 18 136/73 Pulse Ox O2 Del Method O2 Flow Rate 12/08/24 13:20 96 Room Air 12/08/24 11:43 97 Room Air 12/08/24 10:49 97 Room Air 12/08/24 10:39 Room Air 12/08/24 10:15 96 Room Air 12/08/24 10:01 97 Room Air 12/08/24 09:47 96 Room Air 12/08/24 09:40 97 Room Air 12/08/24 09:13 99 Oxymask 4 12/08/24 09:10 99 Oxymask 4 12/08/24 09:05 99 Oxymask 4 12/08/24 09:00 99 Oxymask 4 12/08/24 08:55 99 Oxymask 4 12/08/24 08:50 99 Oxymask 4 12/08/24 08:45 98 Oxymask 4 12/08/24 08:40 98 Oxymask 4 12/08/24 08:35 99 Oxymask 4 12/08/24 08:30 99 Oxymask 4 12/08/24 08:25 95 Oxymask 4 12/08/24 08:20 95 Oxymask 4 12/08/24 08:15 95 Oxymask 4 12/08/24 07:28 97 Room Air 12/08/24 07:24 12/08/24 03:50 94 Room Air Laboratory Results 12/07/24 06:38 12/08/24 11:02 PG Care Time/CCT Total # of Minutes Spent Total Time Spent with Patient: Total time spent is greater than 50% in coordination of care (as documented) at patient's floor/unit and/or counseling patient: Coding Level of Care Code 53053 SUB INP/OBS CARE MIN Diagnoses Cellulitis of right foot L03.115 Peripheral vascular disease of lower extremity I73.9 Hematuria R31.9 Hypertension I10 Chronic kidney disease, stage III (moderate) N18.30
[2024-12-09 07:21] LABS: Basophils # (auto) 0.11 K/uL (0.00-0.20); Eosinophils # (auto) 0.32 K/uL (0.00-0.50); Hematocrit (blood only) 31.5 % (37.0-47.0); Immature Granulocytes # (auto) 0.05 K/uL (0.01-0.20); Immature Granulocytes % (auto) 0.5 %; Lymphocytes # (auto) 1.34 K/uL (1.20-3.40); Lymphocytes % (auto) 12.4 %; Mean Corpuscular Hgb Conc 31.7 g/dL (32.0-36.0); Mean Corpuscular Volume 84.9 fL (80.0-100.0); Mean Platelet Volume 11.4 fL (9.4-12.4); Monocytes # (auto) 1.43 K/uL (0.11-0.59); Monocytes % (auto) 13.2 %; Neutrophils # (auto) 7.56 K/uL (1.40-6.50); Neutrophils % (auto) 69.9 %; Platelet Count 347 K/uL (130-400); RDW Coefficient of Variation 15.6 % (11.5-14.5); Red Blood Count 3.71 M/uL (4.20-5.40); White Blood Count 10.81 K/ul (4.8-10.8)
[2024-12-09] MEDS: CLOPIDOGREL BISULFATE 75 MG TAB PO SCH (07:41)
[2024-12-09 07:50] LABS: Calcium 9.9 mg/dl (8.6-10.3); Potassium 4.2 mmol/L (3.5-5.1)
[2024-12-09 07:55] LABS: BUN Creatinine Ratio 22.6 (10-20); Creatinine Clr Calc Pharmacy 32.9 ml/min
[2024-12-09] MEDS: SULFAMETHOXAZOLE/TRIMETHOPRIM DS 800/160MG TAB PO SCH (09:43)
--- NOTE | 2024-12-09 12:52 | Hospitalist Progress Note ---
Date of Service December 09, 2024 Assessment & Plan (1) Cellulitis of right foot: Plan: Treated with intravenous cefepime for 8 days. She has now been switched to oral Bactrim therapy. She is allergic to penicillin. Local care. Appreciate wound care assistance (2) Peripheral vascular disease of lower extremity: Plan: Known stenosis of the common femoral artery and superficial femoral artery on the right side. She underwent arteriography on December 08 and subsequently had angioplasty with stent placement in the superficial femoral artery and angioplasty of a stenotic lesion in the peroneal artery on the right. Plavix has been added to aspirin per vascular surgery. (3) Hematuria: Plan: Occurred while on heparin drip. Resolved once the heparin drip was discontinued. Hemoglobin is stable. Outpatient urological evaluation recommended (4) Hypertension: Plan: Stable. Continue current medical management. EKG reveals normal heart rate with evidence of left bundle branch block and right bundle branch block (5) Chronic kidney disease, stage III (moderate): Plan: Monitor intake and output. Serial labs Plan Anticipate return to [facility] (where she has a bed hold) tomorrow, December 10 Admission and Anticipated Discharge Date Admission Date: December 01, 2024 Subjective Alert and oriented. No new problems. Cefepime has been switched to oral Bactrim therapy. Overall she is stable. Hopefully she can return to [facility] tomorrow, December 10 Review of Systems 2 Review of Systems: Constitutionalno fever or chills ENTopacified OD with blindness. No epistaxis, no sore throat Respiratoryno cough, no wheezing, no shortness of breath Cardiacno palpitations, no chest pain, no syncope Wilder nausea, vomiting, diarrhea, melena, hematochezia GUno urinary retention, no urinary incontinence, no dysuria, no hematuria Musculoskeletalresting right foot pain. Skinpallor in right lower extremity below the knees has resolved. Crusted lesions on the plantar surface at the base of several right toes. Neurono isolated weakness, no paresthesia Psychno depression, no anxiety Physical Exam 2 Physical Exam: General-alert and oriented x3, no fever, no chills HEENT-head atraumatic and normocephalic, opacified OD with blindness, extraocular muscles intact Neck-no lymphadenopathy or thyromegaly, trachea midline Chest-clear to auscultation. No rales, wheezing or rhonchi Cardiac-regular rate and rhythm, normal S1 and S2 Abdomen-normal bowel sounds, no hepatosplenomegaly Extremities-pallor of distal right lower extremity has resolved. Crusted skin lesions at the base of the toes on the plantar surface of the right foot Neuro-cranial nerves II through XII intact, motor and sensory function within normal limits, strength symmetrical, no focal deficits Psych-normal affect, normal mood Results & Data Results & Data Vital Signs (Past 12 Hours) Vital Signs Temp Pulse Pulse Resp BP Pulse Ox O2 Del Method 12/09/24 11:34 36.3 C L 76 20 135/73 97 Room Air 12/09/24 07:45 Room Air 12/09/24 07:27 36.6 C 71 18 146/76 H 98 Room Air 12/09/24 03:42 36.5 C 75 16 150/75 H 96 Room Air 12/09/24 02:34 80 Laboratory Results 12/09/24 06:43 12/09/24 06:43 PG Care Time/CCT Total # of Minutes Spent Total Time Spent with Patient: Total time spent is greater than 50% in coordination of care (as documented) at patient's floor/unit and/or counseling patient: Coding Level of Care Code 84346 SUB INP/OBS CARE 3/50MIN Diagnoses Cellulitis of right foot L03.115 Peripheral vascular disease of lower extremity I73.9 Hematuria R31.9 Hypertension I10 Chronic kidney disease, stage III (moderate) N18.30
[2024-12-10 07:43] LABS: Basophils # (auto) 0.09 K/uL (0.00-0.20); Basophils % (auto) 0.8 %; Eosinophils # (auto) 0.34 K/uL (0.00-0.50); Eosinophils % (auto) 3.1 %; Hematocrit (blood only) 30.9 % (37.0-47.0); Immature Granulocytes # (auto) 0.08 K/uL (0.01-0.20); Immature Granulocytes % (auto) 0.7 %; Lymphocytes # (auto) 1.64 K/uL (1.20-3.40); Lymphocytes % (auto) 14.9 %; Mean Corpuscular Hemoglobin 26.7 pg (25.0-34.0); Mean Corpuscular Hgb Conc 32.4 g/dL (32.0-36.0); Mean Corpuscular Volume 82.4 fL (80.0-100.0); Mean Platelet Volume 11.1 fL (9.4-12.4); Monocytes # (auto) 1.23 K/uL (0.11-0.59); Monocytes % (auto) 11.2 %; Neutrophils # (auto) 7.62 K/uL (1.40-6.50); Neutrophils % (auto) 69.3 %; Platelet Count 344 K/uL (130-400); RDW Coefficient of Variation 15.5 % (11.5-14.5); RDW Standard Deviation 46.7 fL (36.4-46.3); Red Blood Count 3.75 M/uL (4.20-5.40)
[2024-12-10 08:05] LABS: BUN Creatinine Ratio 20.3 (10-20); Calcium 9.8 mg/dl (8.6-10.3); Creatinine Clr Calc Pharmacy 26.2 ml/min; Potassium 4.5 mmol/L (3.5-5.1)
--- NOTE | 2024-12-10 13:00 | Hospitalist Progress Note ---
Date of Service December 10, 2024 Assessment & Plan (1) Cellulitis of right foot: Plan: Treated with intravenous cefepime for 8 days. She has now been switched to oral Bactrim therapy. She is allergic to penicillin. Local care. Appreciate wound care assistance (2) Peripheral vascular disease of lower extremity: Plan: Known stenosis of the common femoral artery and superficial femoral artery on the right side. She underwent arteriography on December 08 and subsequently had angioplasty with stent placement in the superficial femoral artery and angioplasty of a stenotic lesion in the peroneal artery on the right. Plavix has been added to aspirin per vascular surgery. (3) Hematuria: Plan: Occurred while on heparin drip. Resolved once the heparin drip was discontinued. Hemoglobin is stable. Outpatient urological evaluation recommended (4) Hypertension: Plan: Stable. Continue current medical management. EKG reveals normal heart rate with evidence of left bundle branch block and right bundle branch block (5) Chronic kidney disease, stage III (moderate): Plan: Monitor intake and output. Serial labs (6) Lower GI bleeding: Plan: Nothing continuous. Vital signs are stable. Hemoglobin is stable. I spoke to the patient's son. We agree not to pursue this further as long as there is no recurrence. Plan [facility]) tomorrow, December 11 Admission and Anticipated Discharge Date Admission Date: December 01, 2024 Subjective Alert and oriented. The nurse noted some blood in one of her bowel movements. I spoke to the son by phone and he is not sure when she had her last colonoscopy. We agree not to pursue this further unless it recurs or she has any significant clinical changes. Hemoglobin is stable and she is asymptomatic with stable vital signs. Hopefully she can return to [facility] tomorrow if there is no recurrence of any rectal bleeding. Review of Systems 2 Review of Systems: Constitutionalno fever or chills ENTopacified OD with blindness. No epistaxis, no sore throat Respiratoryno cough, no wheezing, no shortness of breath Cardiacno palpitations, no chest pain, no syncope Wilder nausea, vomiting, diarrhea, melena, hematochezia GUno urinary retention, no urinary incontinence, no dysuria, no hematuria Musculoskeletalresting right foot pain. Skinpallor in right lower extremity below the knees has resolved. Crusted lesions on the plantar surface at the base of several right toes. Neurono isolated weakness, no paresthesia Psychno depression, no anxiety Physical Exam 2 Physical Exam: General-alert and oriented x3, no fever, no chills HEENT-head atraumatic and normocephalic, opacified OD with blindness, extraocular muscles intact Neck-no lymphadenopathy or thyromegaly, trachea midline Chest-clear to auscultation. No rales, wheezing or rhonchi Cardiac-regular rate and rhythm, normal S1 and S2 Abdomen-normal bowel sounds, no hepatosplenomegaly Extremities-pallor of distal right lower extremity has resolved. Crusted skin lesions at the base of the toes on the plantar surface of the right foot Neuro-cranial nerves II through XII intact, motor and sensory function within normal limits, strength symmetrical, no focal deficits Psych-normal affect, normal mood Results & Data Results & Data Vital Signs (Past 12 Hours) Vital Signs Temp Pulse Pulse Resp BP Pulse Ox O2 Del Method 12/10/24 11:27 36.6 C 81 16 106/65 94 Room Air 12/10/24 09:45 Room Air 12/10/24 07:44 36.7 C 72 20 144/76 H 95 Room Air 12/10/24 02:19 36.7 C 63 18 107/67 94 Room Air 12/10/24 01:14 82 Laboratory Results 12/10/24 07:12 12/10/24 07:12 PG Care Time/CCT Total # of Minutes Spent Total Time Spent with Patient: Total time spent is greater than 50% in coordination of care (as documented) at patient's floor/unit and/or counseling patient: Coding Level of Care Code 62030 SUB INP/OBS CARE 3/50MIN Diagnoses Cellulitis of right foot L03.115 Peripheral vascular disease of lower extremity I73.9 Hematuria R31.9 Hypertension I10 Chronic kidney disease, stage III (moderate) N18.30 Lower GI bleeding K92.2
[2024-12-11 07:35] VITALS: RESP 18
[2024-12-11 07:40] LABS: Basophils # (auto) 0.08 K/uL (0.00-0.20); Eosinophils # (auto) 0.24 K/uL (0.00-0.50); Hemoglobin 10.5 g/dl (12.0-16.0); Immature Granulocytes # (auto) 0.05 K/uL (0.01-0.20); Immature Granulocytes % (auto) 0.6 %; Lymphocytes # (auto) 1.07 K/uL (1.20-3.40); Lymphocytes % (auto) 13.5 %; Mean Corpuscular Hemoglobin 27.3 pg (25.0-34.0); Mean Corpuscular Hgb Conc 32.8 g/dL (32.0-36.0); Mean Corpuscular Volume 83.3 fL (80.0-100.0); Mean Platelet Volume 11.3 fL (9.4-12.4); Monocytes # (auto) 0.95 K/uL (0.11-0.59); Neutrophils # (auto) 5.53 K/uL (1.40-6.50); Neutrophils % (auto) 69.9 %; Platelet Count 319 K/uL (130-400); RDW Coefficient of Variation 15.7 % (11.5-14.5); RDW Standard Deviation 47.6 fL (36.4-46.3); Red Blood Count 3.84 M/uL (4.20-5.40); White Blood Count 7.92 K/ul (4.8-10.8)
[2024-12-11 07:55] LABS: BUN Creatinine Ratio 14.5 (10-20); Calcium 10.2 mg/dl (8.6-10.3); Potassium 4.6 mmol/L (3.5-5.1)
[2024-12-11 11:44] VITALS: BP 120/75; PULSE 82; TEMP 98.2; O2SAT 94
--- NOTE | 2024-12-11 13:10 | Discharge Summary ---
Discharge Summary Date of Service December 11, 2024 Principal Dx & Hospital Course #1 = Principal Diagnosis (1) Cellulitis of right foot: Treated with intravenous cefepime for 8 days. She has now been switched to oral Bactrim therapy. She is allergic to penicillin. Local care. Appreciate wound care assistance (2) Peripheral vascular disease of lower extremity: Known stenosis of the common femoral artery and superficial femoral artery on the right side. She underwent arteriography on December 08 and subsequently had angioplasty with stent placement in the superficial femoral artery and angioplasty of a stenotic lesion in the peroneal artery on the right. Plavix has been added to aspirin per vascular surgery. (3) Hematuria: Occurred while on heparin drip. Resolved once the heparin drip was discontinued. Hemoglobin is stable. Outpatient urological evaluation recommended (4) Hypertension: Stable. Continue current medical management. EKG reveals normal heart rate with evidence of left bundle branch block and right bundle branch block (5) Chronic kidney disease, stage III (moderate): Monitor intake and output. Serial labs (6) Lower GI bleeding: Nothing continuous. This occurred only once and has not recurred. Vital signs are stable. Hemoglobin is stable. I spoke to the patient's son. We agree not to pursue this further as long as there is no recurrence. Plan Return to [facility] today, December 11. Continue Plavix indefinitely and take Bactrim twice daily for another 10 days. Follow-up with vascular surgeon in 1 to 2 weeks and also urologist within 1 month. Admission HPI Per Admitting Provider This is an 84-year-old [place] woman with benign essential hypertension and hyperlipidemia who was sent from [facility] due to right foot pain, redness and swelling. The patient stated that over the past 2 weeks she had noticed some increasing redness and pain in her right foot. There are some fissures in between her toes for which they had been applying Vaseline in between her toes. This had been getting worse and she was evaluated by a doctor at the nursing facility who decided that she needed to come to the emergency room. There was also some concern about nondetection of pulse in the right foot at the nursing facility. She also says that her left foot has a same problem with pain and redness. However the right foot is more painful. The patient denied any fever, chills. In the emergency room, she had some screening tests done that were fairly unremarkable. A CT angio of the lower extremity was completed that showed some findings concerning for peripheral vascular disease with collaterals. The ER physician spoke to the vascular surgeon who reviewed the images and recommended IV antibiotics, IV heparin and did not think that she needed immediate surgery. She is thus being admitted to the medical service for antibiotics and anticoagulation. Past medical history 1. UTI and rhabdomyolysis in December 2023 2. CKD stage III 3. Mild cognitive impairment 4. Benign essential hypertension 5. Hyperlipidemia 6. Vulvar squamous cell carcinoma. In remission. Discharge Exam General-alert and oriented x3, no fever, no chills HEENT-head atraumatic and normocephalic, opacified OD with blindness, extraocular muscles intact Neck-no lymphadenopathy or thyromegaly, trachea midline Chest-clear to auscultation. No rales, wheezing or rhonchi Cardiac-regular rate and rhythm, normal S1 and S2 Abdomen-normal bowel sounds, no hepatosplenomegaly Extremities-pallor of distal right lower extremity has resolved. Crusted skin lesions at the base of the toes on the plantar surface of the right foot Neuro-cranial nerves II through XII intact, motor and sensory function within normal limits, strength symmetrical, no focal deficits Psych-normal affect, normal mood Discharge Plan Discharge Items Patient Disposition: Transfer [facility] Reason For Visit: R FOOT INFECTION Discharge Diagnosis: Right lower extremity peripheral arterial disease, right foot cellulitis, transient hematuria with heparin drip, transient lower GI bleeding Activity: Resume your previous activity Non-emergency contact: Primary Care Provider Call non-emergency contact if: your symptoms worsen Follow-up/Referrals: Tanya Yu MD [Primary Care Provider] - Diet: Regular Addtl Attending Provider Instructions: Losartan has been discontinued. Continue Bactrim antibiotic for 10 more days. Follow-up with gastroenterology for consideration of colonoscopy if any lower gastrointestinal bleeding recurs. Follow-up with urology as an outpatient for evaluation of the hematuria that occurred transiently while hospitalized Addtl [employer] Provider Instructions: Recommend outpatient urology follow-up because of the blood in your urine that you had during this hospitalization. Pending Studies at Discharge: No Stand-Alone Forms: My [employer] Skilled Items Patient informed of condition?: Yes DNR: Yes Discharge Level of Care: Skilled Communicable Disease: No Discharge Prognosis: Stable Lines: None Urinary Catheter: No Medications and DC Order Prescriptions: New atorvastatin 40 mg Tablet 40 mg PO QAM Qty: 20 0RF sulfamethoxazole-trimethoprim [Bactrim] 400-80 mg Tablet 1 tab PO Q12H Qty: 20 0RF clopidogrel 75 mg Tablet 75 mg PO QAM Qty: 20 0RF aspirin 81 mg Tablet,Delayed Release (Dr/Ec) 81 mg PO QAM Qty: 0 0RF Continued docusate sodium [Colace] 100 mg capsule 100 mg PO DAILY carboxymethylcellulose sodium [Refresh Plus] 0.5 % dropperette 1 drp ophthalmic (eye) QID acetaminophen [Tylenol] 325 mg tablet 650 mg PO BID diclofenac sodium 1 % gel 2 g topical QID Rx Instructions: apply to single elbow, wrist or hand; for hand includes palm/fingers/back of hand cholecalciferol (vitamin D3) [Vitamin D3] 50 mcg (2,000 unit) capsule 2,000 unit PO DAILY PreserVision AREDS-2 250-90-40-1 mg Capsule 1 tab PO DAILY Discontinued losartan 25 mg tablet 25 mg PO DAILY Discharge Orders: Discharge Order (Routine); Ordered 12/11/24 Ordered By: Kali Vale Admission Data Admit Date/Time: 12/01/24 15:24 Attending Provider: Kali Vale Admit Provider: Meredith Evans Primary Care Provider: Tanya Yu Other Providers: Bryon Up; Rick Pickens Hospital Stay Data Consultations 12/01/24 14:14 Consult Vascular Surgery Routine 12/01/24 14:30 ED Decision to Admit Stat 12/05/24 12:47 Consult Vascular Surgery Routine Procedures Performed Operation Date: 12/08/24 08:00 Actual Procedures p Right Leg Angiogram,Percutaneous Transluminal Angioplasty and Stenting of Right Superficial Femoral Artery,Percutaneous Translumimal Angioplasty of Right Peroneal Artery,Ultrasound Localization of Left Femoral Artery,Mechanical Closure of Left Femoral Artery,Moderate Sedation [id number](Left) - Bryon Up MD Diagnostic Imagining Performed 12/01/24 12:16 CT angio LE RT w inc wo if don Stat 12/08/24 07:34 EV angio LE RT Routine US EV guide vascular access Routine Pending Results Patient Have Any Pending Studies at Discharge: No Discharge Instructions Given to Patient (Per Discharging Provider) Losartan has been discontinued. Continue Bactrim antibiotic for 10 more days. Follow-up with gastroenterology for consideration of colonoscopy if any lower gastrointestinal bleeding recurs. Follow-up with urology as an outpatient for evaluation of the hematuria that occurred transiently while hospitalized Total Time Total Time Spent Total Time Spent (In Minutes): 50-minute Coding Level of Care Code 93567 INP/OBS DISCH >30 MIN Diagnoses Cellulitis of right foot L03.115 Peripheral vascular disease of lower extremity I73.9 Hematuria R31.9 Hypertension I10 Chronic kidney disease, stage III (moderate) N18.30 Lower GI bleeding K92.2
[2024-12-11] MEDS ORDERED: SULFA/TRIMETH 400/80MG TAB PO SCH (21:00)
== END 2024-12-11 14:31 | DRG 253 ==
LOC: ED 11:21 → SUATTDRO 15:24 → 2N 15:24